=== PATIENT | male | born 1965 | race African-American/Black ===

== ENCOUNTER 2020-06-15 11:28 | Outpatient (REF) | payer OTHER, SELFPAY ==
[2020-06-15 14:00] LABS: Creatinine Urine 233.69 mg/dL; Microalbum/Creatinine Ratio Ur 5.9 ug/mg cr
[2020-06-15 14:05] LABS: Alanine Aminotransferase 36 U/L (0-40); Albumin Level 4.3 g/dL (3.5-5.0); Alkaline Phosphatase 102 U/L (39-117); Anion Gap 12 (12-20); Aspartate Amino Transferase 39 U/L (5-37); Bilirubin Total 0.4 mg/dL (0.0-1.0); Blood Urea Nitrogen 17 mg/dL (9-16); Calcium 9.1 mg/dL (8.4-10.2); Carbon Dioxide 34 mmol/L (22-29); Chloride 97 mmol/L (96-108); Estimated Glomerular Filt Rate > 60; Glucose Fasting 108 mg/dL (60-99); Sodium 140 mmol/L (135-145); Total Protein 7.7 g/dL (6.5-8.0)
[2020-06-15 14:27] LABS: Prostate Specific Antigen Scr 0.45 ng/mL (<0.05-4.0)
== END 2020-06-15 11:29 | disposition home or self-care (01) ==
LOC: HO.WFDLDS 11:28
PROVIDERS: Visit Provider Family Medicine
DX: Z00.00 Encounter for general adult medical examination without abnormal findings (principal); I10 Essential (primary) hypertension; Z12.5 Encounter for screening for malignant neoplasm of prostate
CPT/HCPCS: 36415; 80053; 82043; 84153

== ENCOUNTER 2021-05-23 10:03 | Outpatient (REF) | payer OTHER, SELFPAY ==
[2021-05-23 12:17] LABS: Alanine Aminotransferase 23 U/L (0-40); Alkaline Phosphatase 104 U/L (39-117); Anion Gap 12 (12-20); Aspartate Amino Transferase 28 U/L (5-37); Bilirubin Total 0.3 mg/dL (0.0-1.0); Blood Urea Nitrogen 19 mg/dL (9-16); Calcium 9.6 mg/dL (8.4-10.2); Carbon Dioxide 32 mmol/L (22-29); Chloride 100 mmol/L (96-108); Cholesterol 156 mg/dL; Estimated Glomerular Filt Rate > 60; Glucose Fasting 100 mg/dL (60-99); HDL Cholesterol 29 mg/dL; LDL Cholesterol Calculated 107 mg/dl; Potassium 3.1 mmol/L (3.3-5.1); Sodium 141 mmol/L (135-145); Total Protein 7.4 g/dL (6.5-8.0); Triglycerides 102 mg/dL; Uric Acid 10.7 mg/dL (3.4-7.0)
[2021-05-23 12:30] LABS: Creatinine Urine 150.81 mg/dL; Microalbum/Creatinine Ratio Ur 5.3 ug/mg cr
[2021-05-23 12:39] LABS: TSH reflex Free T4 2.34 uIU/mL (0.32-4.0)
== END 2021-05-23 10:04 | disposition home or self-care (01) ==
LOC: HO.WFDLDS 10:03
PROVIDERS: Visit Provider Family Medicine
DX: Z00.00 Encounter for general adult medical examination without abnormal findings (principal); M79.89 Other specified soft tissue disorders; I10 Essential (primary) hypertension
CPT/HCPCS: 36415; 80053; 80061; 82043; 84443; 84550

== ENCOUNTER 2021-06-14 18:07 | Outpatient (REF) | payer OTHER, SELFPAY ==
[2021-06-14 18:54] LABS: Influenza A PCR NEGATIVE (Negative); Influenza B PCR NEGATIVE (Negative); Resp Syncy Virus RNA Qual PCR NEGATIVE (Negative); SARS COV2 PCR INHOUSE NEGATIVE (Negative)
== END 2021-06-14 18:08 | disposition home or self-care (01) ==
LOC: HO.LNP 18:07
PROVIDERS: Visit Provider Family Medicine
DX: Z20.822 Contact with and (suspected) exposure to COVID-19 (principal); H92.02 Otalgia, left ear
CPT/HCPCS: 0241U

== ENCOUNTER 2022-03-14 09:27 | Outpatient (REF) | payer OTHER, SELFPAY ==
[2022-03-14 12:25] LABS: Influenza A PCR NEGATIVE (Negative); Influenza B PCR NEGATIVE (Negative); Resp Syncy Virus RNA Qual PCR NEGATIVE (Negative); SARS COV2 PCR INHOUSE NEGATIVE (Negative)
== END 2022-03-14 09:28 | disposition home or self-care (01) ==
LOC: HO.LNP 09:27
PROVIDERS: Visit Provider Nurse Practitioner Family
DX: Z20.822 Contact with and (suspected) exposure to COVID-19 (principal); J06.9 Acute upper respiratory infection, unspecified
CPT/HCPCS: 0241U

== ENCOUNTER 2022-05-19 08:36 | Outpatient (REF) | payer OTHER, SELFPAY ==
[2022-05-19 11:41] LABS: Appearance Urine Clear; Color Urine Yellow; Glucose Urine UA Negative (Negative); Leukocyte Esterase Urine Negative (Negative); Nitrite Urine Negative (Negative); PH 5.5 (5.0-9.0); Specific Gravity - Urine 1.025 (1.005-1.025); UMIC TRIGGER UA YES; Urine Blood Moderate (2+) (Negative); Urine Ketones 15 mg/dL (Negative); Urine Protein 30 (1+) mg/dL (Neg-Trace)
[2022-05-19 12:00] LABS: Bacteria Urine None Seen (None Seen); Granular Casts Urine Present; WBC Urine 0-5 /HPF (0-5)
[2022-05-19 12:25] LABS: Creatinine Urine 445.01 mg/dL; Microalbum/Creatinine Ratio Ur 19.3 ug/mg cr
[2022-05-19 13:42] LABS: Alanine Aminotransferase 27 U/L (0-40); Alkaline Phosphatase 109 U/L (39-117); Anion Gap 14 (12-20); Aspartate Amino Transferase 40 U/L (5-37); Bilirubin Total 0.7 mg/dL (0.0-1.0); Blood Urea Nitrogen 18 mg/dL (9-16); Calcium 9.4 mg/dL (8.4-10.2); Carbon Dioxide 30 mmol/L (22-29); Chloride 100 mmol/L (96-108); Cholesterol 121 mg/dL; Estimated Glomerular Filt Rate 53; Glucose Fasting 101 mg/dL (60-99); HDL Cholesterol 29 mg/dL; LDL Cholesterol Calculated 80 mg/dl; Potassium 2.8 mmol/L (3.3-5.1); Prostate Specific Antigen Scr 0.39 ng/mL (<0.05-4.0); Sodium 141 mmol/L (135-145); TSH reflex Free T4 1.99 uIU/mL (0.32-4.0); Total Protein 7.6 g/dL (6.5-8.0); Triglycerides 62 mg/dL
== END 2022-05-19 08:37 | disposition home or self-care (01) ==
LOC: HO.WFDLDS 08:36
PROVIDERS: Visit Provider Family Medicine
DX: Z00.00 Encounter for general adult medical examination without abnormal findings (principal); I10 Essential (primary) hypertension; Z12.5 Encounter for screening for malignant neoplasm of prostate
CPT/HCPCS: 36415; 80053; 80061; 81001; 82043; 84153; 84443

== ENCOUNTER 2022-05-26 11:09 | Outpatient (REF) | payer OTHER, SELFPAY ==
--- NOTE | ~2022-05-26 | XR_ITS ---
EXAMINATION: XR CHEST CLINICAL INFORMATION: Upper respiratory symptoms. Cold symptoms. Lingering lung sounds. COMPARISON: Chest radiographs 04/11/2017 TECHNIQUE: 2 views of the chest were obtained. FINDINGS: There is no lobar or segmental airspace consolidation or groundglass opacity or effusion. Subtle symmetric bilateral nipple shadows are seen on the frontal view. The heart is normal in size. The hilar and mediastinal contours are normal. No acute bony abnormality. XR/XR chest 2V IMPRESSION: Unremarkable examination.
== END 2022-05-26 11:10 | disposition home or self-care (01) ==
LOC: HO.XRAY 11:09
PROVIDERS: PCP Family Medicine; Visit Provider Family Medicine
DX: R09.89 Other specified symptoms and signs involving the circulatory and respiratory systems (principal)
CPT/HCPCS: 71046

== ENCOUNTER 2022-08-26 07:00 | Outpatient (REF) | payer OTHER, SELFPAY ==
[2022-08-26 08:04] LABS: Urine Cytology See Pathology rpt
[2022-08-26 08:26] LABS: Appearance Urine Clear; Color Urine Yellow; Glucose Urine UA Negative (Negative); Leukocyte Esterase Urine Negative (Negative); Nitrite Urine Negative (Negative); PH 7.5 (5.0-9.0); Specific Gravity - Urine 1.015 (1.005-1.025); Urine Blood Negative (Negative); Urine Ketones Negative (Negative); Urine Protein Negative (Neg-Trace)
[2022-08-26 09:44] LABS: Alanine Aminotransferase 30 U/L (0-40); Albumin Level 3.8 g/dL (3.5-5.0); Alkaline Phosphatase 94 U/L (39-117); Anion Gap 14 (12-20); Aspartate Amino Transferase 28 U/L (5-37); Bilirubin Total 0.7 mg/dL (0.0-1.0); Blood Urea Nitrogen 12 mg/dL (9-16); Calcium 9.3 mg/dL (8.4-10.2); Carbon Dioxide 30 mmol/L (22-29); Chloride 101 mmol/L (96-108); Cholesterol 155 mg/dL; Estimated Glomerular Filt Rate > 60; Glucose Fasting 110 mg/dL (60-99); HDL Cholesterol 30 mg/dL; LDL Cholesterol Calculated 104 mg/dl; Potassium 3.2 mmol/L (3.3-5.1); Sodium 142 mmol/L (135-145); Total Protein 7.2 g/dL (6.5-8.0); Triglycerides 106 mg/dL
== END 2022-08-26 07:01 | disposition home or self-care (01) ==
LOC: HO.LAB 07:00
PROVIDERS: PCP Family Medicine; Visit Provider Family Medicine
DX: Z00.00 Encounter for general adult medical examination without abnormal findings (principal); R74.01 Elevation of levels of liver transaminase levels; R31.9 Hematuria, unspecified; E78.6 Lipoprotein deficiency
CPT/HCPCS: 36415; 80053; 80061; 81003; 88112

== ENCOUNTER 2022-10-26 09:53 | Outpatient (REF) | payer OTHER, SELFPAY | END 2022-10-26 09:54 | disposition home or self-care (01) | LOC: HO.LAB 09:53 | PROVIDERS: PCP Family Medicine; Visit Provider Urology | DX: R31.29 Other microscopic hematuria (principal); R82.89 Other abnormal findings on cytological and histological examination of urine | CPT/HCPCS: 51798 ==

== ENCOUNTER 2022-12-11 09:01 | Outpatient (REF) | payer OTHER, SELFPAY | END 2022-12-11 09:02 | disposition home or self-care (01) | LOC: HO.LAB 09:01 | PROVIDERS: Visit Provider Urology | DX: R82.89 Other abnormal findings on cytological and histological examination of urine (principal); R31.9 Hematuria, unspecified; R31.29 Other microscopic hematuria | CPT/HCPCS: 52000; 88112 ==

== ENCOUNTER 2023-01-29 10:10 | Outpatient (AMB) | payer OTHER, SELFPAY ==
--- NOTE | 2023-01-29 10:16 | MHC.PC.OV ---
Vital Signs 01/29/23 10:18 Height 5 ft 10 in Weight 218 lb 2 oz BMI 31.3 BP 118/78 Blood Pressure Location Lt brachial Position Sitting Pulse 59 Pulse Source Pulse Oximeter Temp 98.5 F Temp Source Oral Pulse Oximetry (%) 99 Oxygen Delivery Method Room Air Intake Visit Reasons: [facility] ED Follow up Intake Note: Patient is here to follow up on right elbow pain was seen at [facility] in [place]. Allergies Sulfa (Sulfonamide Antibiotics) Allergy (Unknown, Verified 01/29/23 10:22) Itching Tobacco use date assessed: 01/29/23 Dental Screening Dental Screen Date: 01/29/23 Did you have a dental visit in the last 12 months?: Yes Did you have a dental problem in the last 6 months where you did not have access to dental care?: No Was dental information given to patient?: Patient has dentist HPI [facility] ED Follow up HPI Details 57 y/o male presents to f/u ED visit for R elbow bursitis. Orthopedics evaluated pt and did not believe it to be septic joint - they recommended dose of IV vancomycin. They had also seen a new GALILEA of 2.1 and had given him IV fluids. He reports he could still feel the warmth on his elbow. He denies symptoms worsening. 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 Jewel De Oliveira, Madeline Magana, Kiel Pantoja and colleagues, with an educational den from [employer]. Review of Systems Const Denies chills, Denies fatigue, Denies fever(s), Denies headache(s) and Denies weakness ENT Denies dizziness and Denies headache(s) Card Denies dyspnea Resp Denies cough, Denies dyspnea, Denies wheezing and Denies other (shortness of breath) Musc Details: R elbow pain/warmth Denies numbness and Denies tingling Neuro Denies dizziness, Denies headache(s), Denies numbness, Denies tingling and Denies weakness Psych Denies anxiety and Denies depression Endo Denies fatigue Aller/Immun Denies wheezing Physical exam (Primary Care) Vital Signs: Last Vital Signs Temp 98.5 F 01/29/23 10:18 Pulse 59 01/29/23 10:18 BP 118/78 01/29/23 10:18 Pulse Ox 99 01/29/23 10:18 Oxygen Delivery Method Room Air 01/29/23 10:18 BMI result Body Mass Index 31.3 Tobacco/Smoking Status: Tobacco use Status Tobacco use date assessed 01/29/23 01/29/23 10:27 Patient Tobacco Use Status Never used Tobacco 01/29/23 10:16 e-Cigarette/Vaping Use Never Used 01/29/23 10:16 Thrive Assessment: Date of Thrive Assessment Date Thrive assessed 12/13/21 01/29/23 10:16 Const General: well developed; No acute distress Nutritional Appearance: well nourished Orientation/consciousness: patient oriented x3 HENMT Head: Yes normocephalic and Yes atraumatic Eyes General: appearance normal, both eyes and all related structures Pupils: Equal, round and reactive pupils present EOM: EOMs intact bilaterally Resp Effort & Inspection: normal respiratory effort Neuro General: patient oriented x3 and gait normal Cranial nerves: Yes Equal, round and reactive pupils present Extrem Other: Swelling of L great toe and distal foot Psych Affect: normal affect Assessment and Plan Assessment & Plan (1) Bursitis of right elbow: Code(s): M70.31 - Other bursitis of elbow, right elbow Plan: Bursitis of right elbow and severe pain and swelling in with increased warmth. He was given vancomycin at the emergency department at [facility] and was sent out with doxycycline. He is almost finished with his course of doxycycline. Still has warmth of the right elbow and swelling there. Sed rate was high as was CRP at [facility]. White count was not elevated. Patient has a history of gout Still having a right elbow pain swelling and increased warmth. Will extend his doxycycline in though this may be a gout flare-up at this point or and non infected bursitis. Will refer to ortho at patient's request. Check labs including white count and uric acid level (2) Acute kidney injury: Code(s): N17.9 - Acute kidney failure, unspecified Plan: In patient had acute kidney injury with elevated creatinine level which has started coming down. Chlorthalidone, olmesartan and NSAIDs were discontinued Will recheck his renal function today Watching blood pressure carefully (3) Gout: Code(s): M10.9 - Gout, unspecified Plan: Patient has a history of gout and has not been taking allopurinol which was restarted last week. He has swelling of the left great toe and forefoot consistent with gout Checking uric acid level Holding off on prednisone as there is still some question of infection of the right elbow and patient has significant issues with hypertension which would be exacerbated by prednisone. Checking labs as mentioned above. If his kidney function is significantly improved, may be able to resume some blood pressure medication in this may allow us to use some prednisone as well. Would hold off on NSAIDs. Recommended Tylenol and ice while awaiting results of his labs. Continue allopurinol and we may need to adjust this at his next visit Orders: Orders Comprehensive Met. Panel Today N17.9 - Acute kidney failure, unspecified CRP High Sensitivity Today M70.31 - Other bursitis of elbow, right elbow Uric Acid Today M10.9 - Gout, unspecified Complete Blood Count Auto Diff Today M70.31 - Other bursitis of elbow, right elbow, Z00.00 - Encounter for general adult medical examination without abnormal findings Erythrocyte Sedimentation Rate Today M70.31 - Other bursitis of elbow, right elbow Referrals Orthopedics Referral M70.31 - Other bursitis of elbow, right elbow Medications: New doxycycline hyclate 100 mg PO BID 5 days 10 tabs 0RF amlodipine 10 mg PO DAILY 30 days 30 tabs 0RF Discontinued amlodipine-olmesartan 10-40 mg Discontinued Reason: Doctor's Order 1 tab PO DAILY 90 days 90 tabs 3RF chlorthalidone Discontinued Reason: Doctor's Order 50 mg PO DAILY 90 tabs 3RF Z12.5 - Encounter for screening for malignant neoplasm of prostate Coding Level of Care Code Est Pt Level 4 (65318) Diagnoses Bursitis of right elbow M70.31 Acute kidney injury N17.9 Gout M10.9
[2023-01-29 10:18] VITALS: BP 118/78; PULSE 59; TEMP 36.9; O2SAT 99; BMI 31.3
== END 2023-01-29 10:52 | disposition home or self-care (01) ==
PROVIDERS: PCP Family Medicine; Visit Provider Family Medicine
DX: M70.31 Other bursitis of elbow, right elbow (principal); N17.9 Acute kidney failure, unspecified; M10.9 Gout, unspecified
CPT/HCPCS: 99214

== ENCOUNTER 2023-01-29 10:53 | Outpatient (REF) | payer OTHER, SELFPAY ==
[2023-01-29 14:13] LABS: MANUAL DIFF FLAG NO
[2023-01-29 14:20] LABS: Basophils Absolute Auto 0.1 X10*3/uL (0.0-0.2); Basophils Percent Auto 0.6 % (0-2); Eosinophils Absolute Auto 0.1 X10*3/uL (0.0-0.4); Eosinophils Percent Auto 1.2 % (0-4); Hematocrit 34.8 % (42.0-52.0); Imm Gran Abs Auto 0.03 X10*3/uL (0.00-0.03); Imm Gran Pct Auto 0.3 % (0.0-0.4); Lymphocytes Absolute Auto 3.3 X10*3/uL (1.2-4.9); Lymphocytes Percent Auto 37.3 % (20-40); Mean Corpuscular HGB Conc 34.5 g/dl (31.0-36.0); Mean Corpuscular Hemoglobin 29.9 pg (27.0-33.0); Mean Corpuscular Volume 86.8 fL (80.0-98.0); Mean Platelet Volume 10.1 fL (9.4-12.4); Monocytes Absolute Auto 0.9 X10*3/uL (0.1-1.2); Monocytes Percent Auto 10.3 % (2-11); Neutrophils Absolute Auto 4.5 x10*3/uL (2.0-8.3); Neutrophils Percent Auto 50.3 % (45-73); Platelet Count 305 X10*3/uL (160-400); Red Blood Count 4.01 X10*6/uL (4.60-5.80); Red Cell Distribution Width 13.1 % (11.0-16.0); White Blood Count 8.9 X10*3/uL (4.8-10.8)
[2023-01-29 14:39] LABS: Estimated Average Glucose 123 mg/dL; Hemoglobin A1c % 5.9 % (<6.0)
[2023-01-29 14:41] LABS: Alanine Aminotransferase 22 U/L (0-40); Albumin Level 3.7 g/dL (3.5-5.0); Alkaline Phosphatase 108 U/L (39-117); Anion Gap 11 (12-20); Aspartate Amino Transferase 27 U/L (5-37); Bilirubin Total 0.5 mg/dL (0.0-1.0); Blood Urea Nitrogen 14 mg/dL (9-16); Calcium 9.9 mg/dL (8.4-10.2); Carbon Dioxide 30 mmol/L (22-29); Chloride 104 mmol/L (96-108); Estimated Glomerular Filt Rate > 60; Glucose Random 94 mg/dL (60-115); Potassium 3.3 mmol/L (3.3-5.1); Sodium 142 mmol/L (135-145); Total Protein 7.7 g/dL (6.5-8.0)
[2023-01-29 15:04] LABS: Erythrocyte Sedimentation Rate 58 MM/HR (0-15)
[2023-01-31 16:32] LABS: CRP High Sensitivity >10.0 mg/L
== END 2023-01-29 10:54 | disposition home or self-care (01) ==
LOC: HO.WFDLDS 10:53
PROVIDERS: Visit Provider Family Medicine
DX: Z00.00 Encounter for general adult medical examination without abnormal findings (principal); N17.9 Acute kidney failure, unspecified; M70.31 Other bursitis of elbow, right elbow; R73.01 Impaired fasting glucose; M10.9 Gout, unspecified
CPT/HCPCS: 36415; 80053; 83036; 84550; 85025; 85652; 86141

== ENCOUNTER 2023-02-06 10:19 | Outpatient (AMB) | payer OTHER, SELFPAY ==
[2023-02-06 10:28] VITALS: BP 122/74; PULSE 63; O2SAT 98; BMI 31.0
--- NOTE | 2023-02-06 10:28 | A.OFFPC_ITS ---
Vital Signs 02/06/23 10:28 Height 5 ft 10 in Weight 216 lb 6 oz BMI 31.0 BP 122/74 Blood Pressure Location Lt brachial Position Sitting Pulse 63 Pulse Source Pulse Oximeter Pulse Oximetry (%) 98 Oxygen Delivery Method Room Air Intake Visit Reasons: f/u bursitis and gout Intake Note: Patient is here to follow up on bursitis and gout, patient has a hard time walking. He feels like he is breathing faster, too. Allergies Sulfa (Sulfonamide Antibiotics) Allergy (Unknown, Verified 02/06/23 10:30) Itching Medication List - Last Reconciled 02/06/23 by Tod Monte MD allopurinol 100 mg PO DAILY amlodipine 10 mg PO DAILY 30 days cetirizine (Zyrtec) 10 mg PO DAILY 30 days doxycycline hyclate 100 mg PO BID 5 days fluticasone propionate 50 mcg/actuation (Flonase Allergy Relief) 1 spray intranasal Q12H 30 days metoprolol succinate ER 25 mg PO DAILY 90 days psyllium husk (with sugar) 3.4 gram (Metamucil (with sugar)) 1 tbsp PO DAILY 30 days Tobacco use date assessed: 02/06/23 Dental Screening Dental Screen Date: 02/06/23 Did you have a dental visit in the last 12 months?: Yes Did you have a dental problem in the last 6 months where you did not have access to dental care?: No Was dental information given to patient?: Patient has dentist HPI f/u bursitis and gout HPI Details 57 y/o male presents to f/u R elbow and L great toe inflammation s/p treatment at ED for R elbow bursitis for which he received vancomycin. Hx of gout and checking labs. Also recent acute kidney injury. Elevated uric acid level at 8.0. Normocytic anemia. 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 1. Little interest or pleasure in doing things: not at all 2. Feeling down, depressed, or hopeless: not at all 3. Trouble falling or staying asleep, or sleeping too much: not at all 4. Feeling tired or having little energy: not at all 5. Poor appetite or overeating: not at all 6. Feeling bad about yourself - or that you are a failure or have let yourself or your family down: not at all 7. Trouble concentrating on things, such as reading the newspaper or watching television: not at all 8. Moving or speaking so slowly that other people could have noticed. Or the opposite - being so fidgety or restless that you have been moving around a lot more than usual: not at all 9. Thoughts that you would be better off or of hurting yourself in some way: not at all Total score: 0 Source: Developed by Drs. Jewel De Oliveira, Madeline Magana, Kiel Pantoja and colleagues, with an educational den from [employer]. Thrive Questionnaire Date Thrive assessed: 12/13/21 AUDIT C Alcohol Use Questionnaire (AUDIT-C) 1. How often do you have a drink containing alcohol?: Never 3. How often do you have six or more drinks on one occasion?: Never Total Score: 0 ASHKAN-7 AMB Questionnaire ASHKAN-7 Date ASHKAN - 7 assessed: 02/06/23 Feeling nervous, anxious, or on edge: 0 = Not at all Not being able to stop or control worryin = Not at all Worrying too much about different things: 0 = Not at all Trouble relaxin = Not at all Being so restless that it is hard to sit still: 0 = Not at all Becoming easily annoyed or irritable: 0 = Not at all Feeling afraid as if something awful might happen: 0 = Not at all Total ASHKAN-7 score (0-4 normal; 5-9 mild; 10-14 moderate; 15-21 severe): 0 Source: Developed by Drs. Jewel De Oliveira, Madeline Magana, Kiel Pantoja and colleagues, with an educational den from [employer]. Review of Systems Const Denies chills, Denies fatigue, Denies fever(s), Denies headache(s) and Denies weakness ENT Denies dizziness and Denies headache(s) Card Denies chest pain, Denies lightheadedness, Denies dyspnea and Denies other (Palpitations) Resp Denies cough, Denies dyspnea, Denies wheezing and Denies other ( shortness of breath) Musc Denies numbness and Denies tingling Neuro Denies dizziness, Denies headache(s), Denies numbness, Denies tingling, Denies paresthesias and Denies weakness Psych Denies anxiety and Denies depression Endo Denies fatigue Aller/Immun Denies wheezing Physical exam (Primary Care) Vital Signs: Last Vital Signs Pulse 63 02/06/23 10:28 BP 122/74 02/06/23 10:28 Pulse Ox 98 02/06/23 10:28 Oxygen Delivery Method Room Air 02/06/23 10:28 BMI result Body Mass Index 31.0 Tobacco/Smoking Status: Tobacco use Status Tobacco use date assessed 02/06/23 02/06/23 10:32 Patient Tobacco Use Status Never used Tobacco 02/06/23 10:32 e-Cigarette/Vaping Use Never Used 02/06/23 10:32 PHQ-9: PHQ-9 Score PHQ-9: Total score 0 02/06/23 10:51 Thrive Assessment: Date of Thrive Assessment Date Thrive assessed 12/13/21 02/06/23 10:32 Const General: no acute distress and well developed Nutritional Appearance: well nourished Orientation/consciousness: patient oriented x3 HENMT Head: Yes normocephalic and Yes atraumatic Eyes General: appearance normal, both eyes and all related structures Pupils: Equal, round and reactive pupils present EOM: EOMs intact bilaterally Resp Effort & Inspection: normal respiratory effort Auscultation: clear to auscultation bilaterally Cardio Rate: regular rate Rhythm: regular rhythm Heart sounds: S1 normal heart sound present, S2 normal heart sound present, no gallops, no murmurs and no rubs Neuro General: patient oriented x3 and gait normal Cranial nerves: Yes Equal, round and reactive pupils present Psych Affect: normal affect Assessment and Plan Assessment & Plan (1) Acute kidney injury: Code(s): N17.9 - Acute kidney failure, unspecified Plan: This has improved off chlorthalidone and losartan No longer needs these medications as his blood pressure is well controlled with current medication regimen Acute kidney injury has resolved. (2) Gout: Code(s): M10.9 - Gout, unspecified Plan: Uric acid level is 8 and foot swelling and pain are consistent with gout flare Start prednisone Increased (3) Normocytic anemia: Code(s): D64.9 - Anemia, unspecified Plan: Check labs (4) Bursitis of right elbow: Code(s): M70.31 - Other bursitis of elbow, right elbow Plan: Likely uninfected - WBC count in normal range, and prednisone will help to reduce this further (5) Pain and swelling of toe of left foot: Code(s): M79.675 - Pain in left toe(s); M79.89 - Other specified soft tissue disorders Plan: As above and checking x-ray Orders: Orders XR foot LT min 3V Today M10.9 - Gout, unspecified, M79.675 - Pain in left toe(s), M79.89 - Other specified soft tissue disorders Uric Acid Today M10.9 - Gout, unspecified Complete Blood Count Auto Diff Today M10.9 - Gout, unspecified, Z00.00 - Enco unter for general adult medical examination without abnormal findings Comprehensive Met. Panel Today N17.9 - Acute kidney failure, unspecified Medications: New prednisone 40 mg (2 x 20 mg) PO DAILY 5 days 10 tabs 0RF cephalexin 500 mg PO Q12H 10 days 20 caps 0RF meloxicam 15 mg PO DAILY 30 days 30 tabs 2RF Changed From allopurinol 100 mg PO DAILY 90 tabs 1RF To allopurinol 200 mg (2 x 100 mg) PO DAILY 90 days 180 tabs 2RF Coding Level of Care Code Est Pt Level 4 (72281) Diagnoses Acute kidney injury N17.9 Gout M10.9 Normocytic anemia D64.9 Bursitis of right elbow M70.31 Pain and swelling of toe of left foot M79.675; M79.89
== END 2023-02-06 11:14 | disposition home or self-care (01) ==
PROVIDERS: PCP Family Medicine; Visit Provider Family Medicine
DX: N17.9 Acute kidney failure, unspecified (principal); M10.9 Gout, unspecified; D64.9 Anemia, unspecified; M70.31 Other bursitis of elbow, right elbow; M79.675 Pain in left toe(s); M79.89 Other specified soft tissue disorders
CPT/HCPCS: 99214

== ENCOUNTER 2023-02-06 14:57 | Outpatient (REF) | payer OTHER, SELFPAY ==
--- NOTE | ~2023-02-06 | XR_ITS ---
EXAMINATION: XR FOOT, LEFT CLINICAL INFORMATION: Gout. COMPARISON: None available. TECHNIQUE: AP, lateral, and oblique views of the left foot. FINDINGS: No acute fractures or subluxation. Equivocal very minimal marginal erosions along the lateral surface of the distal first metatarsal adjacent to the metatarsophalangeal joint. No abnormal soft tissue calcifications. Bony productive changes along the dorsal surface of the foot on the lateral view. Small dorsal calcaneal spur. Diffuse soft tissue thickening. XR/XR foot LT min 3V IMPRESSION: 1. No acute fractures or subluxation. 2. Equivocal very minimal marginal erosions along the lateral surface of the distal first metatarsal adjacent to the metatarsophalangeal joint, which could be seen in the setting of gout. 3. Diffuse soft tissue thickening.
[2023-02-06 15:10] LABS: MANUAL DIFF FLAG NO
[2023-02-06 15:36] LABS: Basophils Absolute Auto 0.1 X10*3/uL (0.0-0.2); Basophils Percent Auto 0.6 % (0-2); Eosinophils Absolute Auto 0.3 X10*3/uL (0.0-0.4); Hematocrit 35.3 % (42.0-52.0); Hemoglobin 11.8 g/dl (14.0-18.0); Imm Gran Abs Auto 0.03 X10*3/uL (0.00-0.03); Imm Gran Pct Auto 0.3 % (0.0-0.4); Lymphocytes Absolute Auto 2.9 X10*3/uL (1.2-4.9); Lymphocytes Percent Auto 33.6 % (20-40); Mean Corpuscular HGB Conc 33.4 g/dl (31.0-36.0); Mean Corpuscular Hemoglobin 29.1 pg (27.0-33.0); Mean Corpuscular Volume 87.2 fL (80.0-98.0); Mean Platelet Volume 9.2 fL (9.4-12.4); Monocytes Absolute Auto 0.9 X10*3/uL (0.1-1.2); Monocytes Percent Auto 9.9 % (2-11); Neutrophils Absolute Auto 4.6 x10*3/uL (2.0-8.3); Neutrophils Percent Auto 52.6 % (45-73); Platelet Count 426 X10*3/uL (160-400); Red Blood Count 4.05 X10*6/uL (4.60-5.80); Red Cell Distribution Width 13.1 % (11.0-16.0); White Blood Count 8.7 X10*3/uL (4.8-10.8)
[2023-02-06 16:30] LABS: Alanine Aminotransferase 31 U/L (0-40); Albumin Level 3.6 g/dL (3.5-5.0); Alkaline Phosphatase 102 U/L (39-117); Anion Gap 15 (12-20); Aspartate Amino Transferase 33 U/L (5-37); Bilirubin Total 0.3 mg/dL (0.0-1.0); Blood Urea Nitrogen 15 mg/dL (9-16); Calcium 9.5 mg/dL (8.4-10.2); Carbon Dioxide 27 mmol/L (22-29); Chloride 105 mmol/L (96-108); Estimated Glomerular Filt Rate > 60; Glucose Random 77 mg/dL (60-115); Potassium 3.8 mmol/L (3.3-5.1); Sodium 143 mmol/L (135-145); Total Protein 7.6 g/dL (6.5-8.0); Uric Acid 6.1 mg/dL (3.4-7.0)
== END 2023-02-06 14:58 | disposition home or self-care (01) ==
LOC: HO.LAB 14:57
PROVIDERS: PCP Family Medicine; Visit Provider Family Medicine
DX: M10.9 Gout, unspecified (principal); N17.9 Acute kidney failure, unspecified; M79.675 Pain in left toe(s); M79.89 Other specified soft tissue disorders; Z00.00 Encounter for general adult medical examination without abnormal findings
CPT/HCPCS: 36415; 73630; 80053; 84550; 85025

== ENCOUNTER 2023-02-13 08:31 | Outpatient (REF) | payer OTHER, SELFPAY ==
--- NOTE | ~2023-02-13 | CT_ITS ---
EXAMINATION: CT ABDOMEN AND PELVIS WITHOUT AND WITH CONTRAST CLINICAL INFORMATION: Other abnormal findings on cytologic and Histological exam COMPARISON: None available. TECHNIQUE: Noncontrast CT of the abdomen and pelvis is performed followed by split bolus contrast-enhanced images using 85 mL Omnipaque 350 contrast.? Postcontrast imaging is performed during the combined nephrogram and excretion phase. Sagittal and coronal reformatted images were obtained on the technologist's workstation for both the precontrast and postcontrast phases. This CT examination was performed using dose optimization techniques as appropriate, variously including the following: *Automated exposure control *Adjustment of mA and/or kV according to patient size (this includes techniques or standardized protocols for targeted exams where dose is matched to indication/reason for exam; i.e. extremities or head) *Use of iterative reconstruction technique DLP: 837 mGy-cm FINDINGS: LUNG BASES: Small bilateral pleural effusions. Right lower lobe peripheral or subpleural nodular densities, question representing subpleural lymph nodes versus subsegmental atelectasis. LIVER, GALLBLADDER, AND BILIARY TREE: The liver is normal in size, shape, and attenuation. No focal hepatic lesion or biliary ductal dilatation is present. The gallbladder is unremarkable with no evidence of radiopaque gallstones, gallbladder wall thickening, or obvious pericholecystic inflammatory changes. PANCREAS: Unremarkable. SPLEEN: Unremarkable. ADRENAL GLANDS: Unremarkable. KIDNEYS AND URETERS: The kidneys are normal in size, shape, and attenuation. No hydronephrosis, hydroureter, or calculi seen. No perinephric stranding. 3 cm left renal cyst. No imaging follow-up recommended. BLADDER: Not optimally distended and not well evaluated. GASTROINTESTINAL TRACT: Mild diverticulosis of the colon. No evidence of diverticulitis. The small and large bowel are otherwise unremarkable. The appendix is unremarkable. ABDOMINAL WALL: No significant hernia is appreciated. LYMPH NODES: Normal. VASCULAR: Unremarkable. PELVIC VISCERA: The prostate gland does not appear enlarged. OSSEUS STRUCTURES: Degenerative changes of the spine. CT/CT urogram IMPRESSION: Unremarkable kidneys. Bladder not optimally distended and not well evaluated. Mild diverticulosis. Small bilateral pleural effusions. Question peripheral or subpleural posterior right lower lobe lower lobe lymph nodes versus subsegmental atelectasis.
[2023-02-13] MEDS: iohexoL 350 MG/ML 100 ML INFUS..BTL IV (09:25)
== END 2023-02-13 08:32 | disposition home or self-care (01) ==
LOC: HO.CT 08:31
PROVIDERS: PCP Family Medicine; Visit Provider Urology
DX: R31.9 Hematuria, unspecified (principal); R82.89 Other abnormal findings on cytological and histological examination of urine
CPT/HCPCS: 74178; Q9967

== ENCOUNTER 2023-02-19 09:03 | Outpatient (AMB) | payer OTHER, SELFPAY ==
--- NOTE | 2023-02-19 09:05 | A.OFFVIS_ITS ---
Intake Intake Visit Reasons: 10w/repeat urine cytology, CT Intake Note: Patient presents today for a follow-up on 10w/repeat urine cytology, CT completed on 02/13/2023. 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 Accompanied by: Self / Same As Patient Allergies Sulfa (Sulfonamide Antibiotics) Allergy (Unknown, Verified 02/06/23 10:30) Itching Medication List - Last Reconciled 02/19/23 by Brian Stephenson MD allopurinol 200 mg (2 x 100 mg) PO DAILY 90 days amlodipine 10 mg PO DAILY 90 days cephalexin 500 mg PO Q12H 10 days cetirizine (Zyrtec) 10 mg PO DAILY 30 days doxycycline hyclate 100 mg PO BID 5 days fluticasone propionate 50 mcg/actuation (Flonase Allergy Relief) 1 spray intranasal Q12H 30 days meloxicam 15 mg PO DAILY 30 days metoprolol succinate ER 25 mg PO DAILY 90 days prednisone 40 mg (2 x 20 mg) PO DAILY 5 days psyllium husk (with sugar) 3.4 gram (Metamucil (with sugar)) 1 tbsp PO DAILY 30 days HPI HPI Comments History of Present Illness Details Pepe is a 57-year-old male who presents today to the office for a follow-up. 02/19/2023? He is followed today for 10/week urine cytology. He was last seen by me on 12/11/2022 for a Cystoscopy procedure. Cystoscopy findings-- no suspiciousl bladder lesions visualized.? CT urogram, and repeat urine cytology was ordered at that time. The patient was advised to follow-up after 2 months at that time. He denies any trouble with urination. He has been taking amlodipine 10 mg for blood pressure. I reviewed the urogram CT results from 02/13/2023 revealed unremarkable kidneys. I reviewed the pathology report results from 12/14/2022 revealed negative for high-grade urothelial carcinoma. 02/19/2023: Evaluation today?UA?Leukocyt es: 15 Wilmer; blood: 10 Juan. Review of charts: Last visit: 12/11/22--? The patient denies history of smoking. He was previously evaluated on 10/26/22 for abnormal urine cytology.? The urine cytology test was done during screening visit with his PCP. Urine cytology results reviewed?collected 08/26/22--Rare atypical urothelial cells. The patient denies gross hematuria. He states he drinks adequate amount of water daily also drinks tea. Denies drinking sodas. He voids frequently due to fluid intake PSA results reviewed--05/19/2022-- 0.39. AUA symptom score-- 7. The urine was sent for bladder fish cancer test. The lab called to inform us that there were not enough cells in the urine. So, the test could not be completed.? Evaluation today-- blood: 10 Juan/uL, leukcoytes: negative. Cystoscopy findings-- no suspiciousl bladder lesions visualized.? 02/19/2023: Plan: Will monitor urinalysis. Follow up in 1 year, PSA and US of the kidneys prior. 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 Current occupational exposures/hazards: No Cognitive needs: No Hearing needs: No Vision needs: No Review of Systems Const All systems reviewed & are unremarkable except as noted in HPI and below Reports no additional complaints Eyes Reports no additional complaints ENT Reports no additional complaints Card Denies dyspnea Resp Denies cough and Denies dyspnea GI Reports no additional complaints Musc Reports no additional complaints Skin/Breast Denies rash and Denies unusual bruising Neuro Reports no additional complaints Psych Reports no additional complaints Endo Reports no additional complaints Paulie/Lymph Reports no additional complaints Aller/Immun Reports no additional complaints Results AMB Urinalysis, Automated UA Leukoctes 15 Wilmer/uL Last Edit by PATEL Dyson on 02/19/23 09:34 UA Nitrite Negative Last Edit by PATEL Dyson on 02/19/23 09:34 UA Urobilinogen 1 mg/dL Last Edit by PATEL Dyson on 02/19/23 09:34 UA Protein 100 mg/dL Last Edit by PATEL Dyson on 02/19/23 09:34 2+ Ramana Montes 02/19/23 09:34 UA pH 5.5 Last Edit by Ramana Montes Braulio on 02/19/23 09:34 UA Blood 100 Juan/uL Last Edit by PATEL Dyson on 02/19/23 09:34 10Ery/uL Ramana Montes 02/19/23 09:34 UA Specific Wayne 1.030 Last Edit by Ramana Montes [facility] on 02/19/23 09: 34 UA Ketone Positive Last Edit by PATEL Dyson on 02/19/23 09:34 15 mg/dL Ramana Montes 02/19/23 09:34 UA Bilirubin 100 mg/dL Last Edit by PATEL Dyson on 02/19/23 09:34 2+, 2 mg/dL Ramana Montes 02/19/23 09:34 UA Glucose 0 mg/dL Last Edit by Ramana Montes Braulio on 02/19/23 09:34 Results Reviewed Results Reviewed: Laboratory Last Values Urine pH (Auto) 5.5 02/19/23 09:31 Specific Wayne (Auto) 1.030 02/19/23 09:31 Urine Protein (Auto) 100 mg/dL 02/19/23 09:31 Glucose (UA)(Auto) 0 mg/dL 02/19/23 09:31 Urine Ketones (Auto) Positive 02/19/23 09:31 Urine Blood (Auto) 100 Juan/uL 02/19/23 09:31 Urine Nitrite (Auto) Negative 02/19/23 09:31 Urine Bilirubin (Auto) 100 mg/dL 02/19/23 09:31 Urine Urobilinogen (Auto) 1 mg/dL 02/19/23 09:31 Leukocyte Esterase (Auto) 15 Wilmer/uL 02/19/23 09:31 Date of Service: 02/13/23 EXAMINATION: CT ABDOMEN AND PELVIS WITHOUT AND WITH CONTRAST?? CLINICAL INFORMATION: Other abnormal findings on cytologic and Histological exam? COMPARISON: None available.? ?? FINDINGS: LUNG BASES: Small bilateral pleural effusions. Right lower lobe peripheral or subpleural nodular densities, question representing subpleural lymph nodes versus subsegmental atelectasis. LIVER, GALLBLADDER, AND BILIARY TREE: The liver is normal in size, shape, and attenuation. No focal hepatic lesion or biliary ductal dilatation is present. The gallbladder is unremarkable with no evidence of radiopaque gallstones, gallbladder wall thickening, or obvious pericholecystic inflammatory changes.?? PANCREAS: Unremarkable.?? SPLEEN: Unremarkable.?? ADRENAL GLANDS: Unremarkable.?? KIDNEYS AND URETERS: The kidneys are normal in size, shape, and attenuation. No hydronephrosis, hydroureter, or calculi seen. No perinephric stranding. 3 cm left renal cyst. No imaging follow-up recommended. BLADDER: Not optimally distended and not well evaluated. GASTROINTESTINAL TRACT: Mild diverticulosis of the colon. No evidence of diverticulitis. The small and large bowel are otherwise unremarkable. The appendix is unremarkable.?? ABDOMINAL WALL: No significant hernia is appreciated.?? LYMPH NODES: Normal. VASCULAR: Unremarkable. PELVIC VISCERA: The prostate gland does not appear enlarged.?? OSSEUS STRUCTURES: Degenerative changes of the spine. IMPRESSION: Unremarkable kidneys. Bladder not optimally distended and not well evaluated. Mild diverticulosis. Small bilateral pleural effusions. Question peripheral or subpleural posterior right lower lobe lower lobe lymph nodes versus subsegmental atelectasis. Diagnosis Urine: Negative for high-grade urothelial carcinoma. See comment. COMMENT: Cellular specimen consisting of single urothelial cells, some with degenerative changes, red blood cells and chronic inflammatory cells. Clinical History Microscopic hematuria, abnormal urine cytology Material Received Urine Gross Description 40 cc clear yellow fluid Assessment & Plan Assessment & Plan (1) Abnormal urine cytology: Code(s): R82.89 - Other abnormal findings on cytological and histological examination of urine (2) Hematuria: Code(s): R31.9 - Hematuria, unspecified (3) Renal cyst, left: Code(s): N28.1 - Cyst of kidney, acquired Plan Will monitor urinalysis. Follow up in 1 year, PSA and US of the kidneys prior. Orders: Orders AMB Urinalysis Automated Today Z13.9 - Encounter for screening, unspecified Patient Instructions: The patient had an opportunity to ask questions regarding treatment plan. All questions were answered. Imaging, Laboratory studies and physical exam results were discussed and reviewed in detail. No major barriers to understanding were identified. The patient expressed understanding and agreement with the above treatment plan.? ? ? The patient is aware they should contact our office by phone for worsening of their current condition or the appearance of new symptoms. Compliance is encouraged with any medications and followup testing that is ordered.? ? ? It is a privilege to be allowed the opportunity to participate in the urologic care of your patient. If you have any questions or concerns regarding treatment for the above conditions please do not hesitate to contact me. The office telephone contact is [phone].? ? ? This note is constructed in part using voice recognition software. While every effort has been made to ensure accuracy wire tinner errors may have been included.? ? ? Yours sincerely,? ? ? Brian Stephenson MD? ? Coding Level of Care Code Est Pt Level 3 (06904) Diagnoses Abnormal urine cytology R82.89 Hematuria R31.9 Renal cyst, left N28.1
== END 2023-02-19 09:56 | disposition home or self-care (01) ==
PROVIDERS: PCP Family Medicine; Visit Provider Urology
DX: R82.89 Other abnormal findings on cytological and histological examination of urine (principal); R31.9 Hematuria, unspecified; N28.1 Cyst of kidney, acquired; Z13.9 Encounter for screening, unspecified
CPT/HCPCS: 99213

== ENCOUNTER → 2023-02-19 09:03 | Outpatient (BNVA) | payer OTHER, SELFPAY | PROVIDERS: PCP Family Medicine; Visit Provider Urology | DX: R31.9 Hematuria, unspecified (principal); R82.89 Other abnormal findings on cytological and histological examination of urine; N28.1 Cyst of kidney, acquired | CPT/HCPCS: 81003 ==

== ENCOUNTER 2023-02-22 09:02 | Outpatient (AMB) | payer OTHER, SELFPAY ==
--- NOTE | 2023-02-22 09:09 | MHC.PC.OV ---
Vital Signs 02/22/23 09:10 02/22/23 10:53 Height 5 ft 10 in Weight 210 lb 2 oz BMI 30.1 BP 146/64 H 132/58 L Blood Pressure Location Rt brachial Rt brachial Position Sitting Sitting Respiration 13 Pulse 57 Pulse Source Pulse Oximeter Temp 97.6 F Temp Source Temporal Artery Scan Pulse Oximetry (%) 100 Oxygen Delivery Method Room Air Intake Visit Reasons: f/u gout Intake Note: Patient reports he has no concerns to report today. He would like his blood pressure retaken. 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 Labs were ordered. Had started him on prednisone. Foot x-ray 02/06/23. Showed equivocal minimal marginal erosions along lateral surface of distal first metatarsal adjacent to the metatarsophalangeal joint, which could be seen in setting of gout. Labs were drawn 02/06/23. Reviewed labs with pt. Mild anemia. Uric acid level 6.1 and improved from 8.0. Blood pressure today 146/64. He is on metoprolol 25mg and amlodipine 10mg daily. HPI Comments History of Present Illness Details Documentation assistance for Tod Monte MD, was provided by John Simeon,? Agriculture Specialist on 02/22/2023 10:24 AM EST. I, Dr. Monte, have read, observed, and verified documentation.? 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 Jewel De Oliveira, Madeline Magana, Kiel Pantoja and colleagues, with an educational den from [employer]. Review of Systems Const Denies chills, Denies fatigue, Denies fever(s), Denies headache(s) and Denies weakness ENT Denies dizziness and Denies headache(s) Card Denies chest pain, Denies lightheadedness, Denies dyspnea and Denies other (Palpitations) Resp Denies cough, Denies dyspnea, Denies wheezing and Denies other ( shortness of breath) Musc Denies numbness and Denies tingling Neuro Denies dizziness, Denies headache(s), Denies numbness, Denies tingling, Denies paresthesias and Denies weakness Psych Denies anxiety and Denies depression Endo Denies fatigue Aller/Immun Denies wheezing Physical exam (Primary Care) Vital Signs: Last Vital Signs Temp 97.6 F 02/22/23 09:10 Pulse 57 02/22/23 09:10 Resp 13 02/22/23 09:10 BP 132/58 L 02/22/23 10:53 Pulse Ox 100 02/22/23 09:10 Oxygen Delivery Method Room Air 02/22/23 09:10 BMI result Body Mass Index 30.1 Tobacco/Smoking Status: Tobacco use Status Tobacco use date assessed 02/06/23 02/22/23 09:15 Patient Tobacco Use Status Never used Tobacco 02/22/23 09:15 e-Cigarette/Vaping Use Never Used 02/22/23 09:15 Thrive Assessment: Date of Thrive Assessment Date Thrive assessed 12/13/21 02/22/23 09:15 Const General: no acute distress and well developed Nutritional Appearance: well nourished Orientation/consciousness: patient oriented x3 [facility]: Yes normocephalic and Yes atraumatic Eyes General: appearance normal, both eyes and all related structures Pupils: Equal, round and reactive pupils present EOM: EOMs intact bilaterally Resp Effort & Inspection: normal respiratory effort Auscultation: clear to auscultation bilaterally Cardio Rate: regular rate Rhythm: regular rhythm Heart sounds: S1 normal heart sound present, S2 normal heart sound present, no gallops, no murmurs and no rubs Neuro General: patient oriented x3 and gait normal Cranial nerves: Yes Equal, round and reactive pupils present Psych Affect: normal affect Assessment and Plan Assessment & Plan (1) Gout: Code(s): M10.9 - Gout, unspecified Plan: Go flare has resolved and his uric acid has decreased from 8.0 down to 6.1 after increasing allopurinol to 200 mg daily Renal function labs are fine Continue allopurinol 200 mg daily Will monitor (2) Mild anemia: Code(s): D64.9 - Anemia, unspecified Plan: Will recheck CBC and investigate further with lab work along with his next visit. (3) Essential hypertension: Code(s): I10 - Essential (primary) hypertension Plan: Blood pressure mildly elevated at initial presentation but decreases in to controlled range with relaxation. Continue current medication regimen Orders: Orders Vitamin B12 and Folate Today D64.9 - Anemia, unspecified, E53.8 - Deficiency of other specified B group vitamins Reticulocyte Count Today D64.9 - Anemia, unspecified Uric Acid Today M10.9 - Gout, unspecified Comprehensive Met. Panel Today M10.9 - Gout, unspecified Complete Blood Count Auto Diff Today D64.9 - Anemia, unspecified, Z00.00 - Encounter for general adult medical examination without abnormal findings IRON PROFILE Today D64.9 - Anemia, unspecified Coding Level of Care Code Est Pt Level 3 (25320) Diagnoses Gout M10.9 Mild anemia D64.9 Essential hypertension I10
[2023-02-22 09:10] VITALS: BP 146/64; PULSE 57; RESP 13; TEMP 36.4; O2SAT 100; BMI 30.1
[2023-02-22 10:53] VITALS: BP 132/58
== END 2023-02-22 10:53 | disposition home or self-care (01) ==
PROVIDERS: PCP Family Medicine; Visit Provider Family Medicine
DX: M10.9 Gout, unspecified (principal); D64.9 Anemia, unspecified; I10 Essential (primary) hypertension
CPT/HCPCS: 99213

== ENCOUNTER 2023-03-06 11:09 | Outpatient (AMB) | payer OTHER, SELFPAY ==
--- NOTE | 2023-03-06 11:10 | MHC.OFFVIS ---
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 Patient reports ongoing pain for a year. He states that he was seen at [facility] and they told him infection in his elbow. Patient reports having concerns of a bone chip in his ankle and would like it removed. 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 The patient was admitted to the [facility] from 01/22/2023-01/23/2023 status post 6 months of right elbow pain following trauma; for acute kidney injury and bursitis. He reported to them that he re-injured the elbow on 01/12/2023. He reported being seen at [facility] on 01/20/2023 where he was put on antibiotics, Bactrim. He was given vancomycin during his inpatient stay and he was discharged on doxycycline. He followed up with his PCP on 01/29/2023, who extended his doxycycline due to continued pain, edema, and warmth. He followed up a second time with his PCP on 02/06/2023 who started the patient on Prednisone for gout flare up due to a uric acid level of 8. Labs on 02/22/2023 showed a uric acid of 6.1. While in the office today he reports ongoing pain for a year, since 2021. He states he was seen at [facility] and was told he had an infection in the right elbow. The patient reports having a bone chip in the ankle and would like to discuss having the chip removed. Patient has a history of gout, with a left foot flare up in 01/2023. 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 Current occupational exposures/hazards: No Cognitive needs: No Hearing needs: No Vision needs: No Review of Systems Const All systems reviewed & are unremarkable except as noted in HPI and below Physical Exam Vital Signs: BMI result Body Mass Index 30.1 Const General: cooperative and no acute distress Orientation/consciousness: patient oriented x3 Resp Effort & Inspection: normal respiratory effort and able to speak in complete sentences Cardio Peripheral pulses: Peripheral pulses 2+ throughout Skin General skin exam: no rashes or lesions noted Neuro General: patient oriented x3 Extrem Other: Right elbow: Normal to inspection. No ecchymosis, erythema, or edema. No tenderness to palpation over the olecranon. No tenderness to the medial or lateral epicondyle. NVI. Assessment & Plan Assessment & Plan (1) Bursitis of right elbow: Code(s): M70.31 - Other bursitis of elbow, right elbow Qualifiers: Elbow bursitis location: unspecified Qualified Code(s): M70.31 - Other bursitis of elbow, right elbow Plan Mr. Melvin is a 57-year-old right hand dominant male who presents in the office today, as a new patient, for an evaluation of right elbow pain. The patient was admitted to the [facility] from 01/22/2023-01/23/2023 status post 6 months of right elbow pain following trauma; for acute kidney injury and bursitis. He reported to them that he re-injured the elbow on 01/12/2023. He reported being seen at [facility] on 01/20/2023 where he was put on antibiotics, Bactrim. He was given vancomycin during his inpatient stay and he was discharged on doxycycline. He followed up with his PCP on 01/29/2023, who extended his doxycycline due to continued pain, edema, and warmth. He followed up a second time with his PCP on 02/06/2023 who started the patient on Prednisone for gout flare up due to a uric acid level of 8. Labs on 02/22/2023 showed a uric acid of 6.1. While in the office today he reports ongoing pain for a year, since 2021. He states he was seen at [facility] and was told he had an infection in the right elbow. The patient reports having a bone chip in the ankle and would like to discuss having the chip removed. Patient has a history of gout, with a left foot flare up in 01/2023. The patient reports his elbow symptoms had resolved prior to today?s appointment. He wanted to keep the appointment in order to establish care with a different orthopedic provider. Follow up will be PRN, or sooner if needed. X-rays of the right elbow, obtained on 01/22/2023 at [facility], revealed: medial soft tissue swelling and no definite fracture identified. Patient Instructions: Scribed for Leanne Stephens PA-C by Cheli Fregoso medical records assistant, on 03/06/2023 at 11:16 am, EST. Coding Level of Care Code New Pt Level 3 (29047) Diagnoses Bursitis of right elbow, unspecified bursa M70.31 Elbow bursitis location: unspecified
[2023-03-06 11:15] VITALS: BMI 30.1
== END 2023-03-06 11:55 | disposition home or self-care (01) ==
PROVIDERS: PCP Family Medicine; Visit Provider Physician Assistant
DX: M70.31 Other bursitis of elbow, right elbow (principal)
CPT/HCPCS: 99203

== ENCOUNTER → 2023-03-06 11:09 | Outpatient (BNVA) | payer OTHER, SELFPAY | PROVIDERS: PCP Family Medicine; Visit Provider Physician Assistant ==

== ENCOUNTER 2023-10-24 09:32 | Outpatient (AMB) | payer OTHER, SELFPAY ==
[2023-10-24 09:50] VITALS: BP 158/80; PULSE 51; O2SAT 100; BMI 31.8
--- NOTE | 2023-10-24 09:50 | A.OFFPC_ITS ---
Vital Signs 10/24/23 09:50 Height 5 ft 10 in Weight 221 lb 6 oz BMI 31.8 BP 158/80 H Blood Pressure Location Lt brachial Position Sitting Pulse 51 Pulse Source Pulse Oximeter Pulse Oximetry (%) 100 Oxygen Delivery Method Room Air Intake Visit Reasons: follow up uric acid Intake Note: Patient is here to follow up on uric acid, and would like to talk about blood pressure medication. Allergies Sulfa (Sulfonamide Antibiotics) Allergy (Unknown, Verified 10/24/23 09:52) Itching Tobacco use date assessed: 10/24/23 Dental Screening Dental Screen Date: 10/24/23 Did you have a dental visit in the last 12 months?: Yes Did you have a dental problem in the last 6 months where you did not have access to dental care?: No Was dental information given to patient?: Patient has dentist HPI follow up uric acid HPI Details 58 y/o male presents to f/u gout, elevat ed uric acid levels as well as hypertension and mild anemia. Blood pressure today 158/80. He is on amlodipine 10mg, metoprolol 25mg daily. No recent labs to review. HPI Comments History of Present Illness Details Documentation assistance for Tod Monte MD, was provided by John Simeon, Hris Analyst on 10/24/2023 10:26 AM EST. I, Dr. Monte, have read, observed, and verified documentation. 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 1. Little interest or pleasure in doing things: not at all 2. Feeling down, depressed, or hopeless: not at all 3. Trouble falling or staying asleep, or sleeping too much: not at all 4. Feeling tired or having little energy: not at all 5. Poor appetite or overeating: not at all 6. Feeling bad about yourself - or that you are a failure or have let yourself or your family down: not at all 7. Trouble concentrating on things, such as reading the newspaper or watching television: not at all 8. Moving or speaking so slowly that other people could have noticed. Or the opposite - being so fidgety or restless that you have been moving around a lot more than usual: not at all 9. Thoughts that you would be better off or of hurting yourself in some way: not at all Total score: 0 Depression Screening Interpretation: Negative Depression Screening Done: Yes 64585 - PHQ-9 Billing: Yes Source: Developed by Drs. Jewel De Oliveira, Madeline Magana, Kiel Pantoja and colleagues, with an educational den from [employer]. Thrive Questionnaire Date Thrive assessed: 10/24/23 I am a: Patient What is your living situation today?: I have a steady place to live Within the past 12 months, did the food you bought not last and you didn't have the money to get more?: Never true Within the past 12 months, did you worry whether your food would run out before you got money to buy more?: Never true Do you have trouble paying for medicines?: No Do you have trouble getting transportation to medical appointments?: No Do you have trouble paying your heating and electricity bill?: No Do you have trouble taking care of your child, family member or friend?: No Do you have trouble with day-to-day activities such as bathing, preparing meals, shopping, managing finances, etc.?: No Are you currently unemployed and looking for a job?: No Are you interested in more education?: Yes THRIVE Score: 0 AUDIT C Alcohol Use Questionnaire (AUDIT-C) 1. How often do you have a drink containing alcohol?: Never 3. How often do you have six or more drinks on one occasion?: Never Total Score: 0 ASHKAN-7 AMB Questionnaire ASHKAN-7 Date ASHKAN - 7 assessed: 10/24/23 Feeling nervous, anxious, or on edge: 0 = Not at all Not being able to stop or control worryin = Not at all Worrying too much about different things: 0 = Not at all Trouble relaxin = Not at all Being so restless that it is hard to sit still: 0 = Not at all Becoming easily annoyed or irritable: 0 = Not at all Feeling afraid as if something awful might happen: 0 = Not at all Total ASHKAN-7 score (0-4 normal; 5-9 mild; 10-14 moderate; 15-21 severe): 0 Source: Developed by Drs. Jewel De Oliveira, Madeline Magana, Kiel Pantoja and colleagues, with an educational den from [employer]. ASHKAN-7 Assessment Billing ASHKAN-7 Assessment Tool: ASHKAN-7 Assessment 15011 Review of Systems Const Denies chills, Denies fatigue, Denies fever(s), Denies headache(s) and Denies weakness ENT Denies dizziness and Denies headache(s) Card Denies dyspnea Resp Denies cough, Denies dyspnea, Denies wheezing and Denies other (shortness of breath) Musc Denies numbness and Denies tingling Neuro Denies dizziness, Denies headache(s), Denies numbness, Denies tingling and Denies weakness Psych Denies anxiety and Denies depression Endo Denies fatigue Aller/Immun Denies wheezing Physical exam (Primary Care) Vital Signs: Last Vital Signs Pulse 51 10/24/23 09:50 BP 158/80 H 10/24/23 09:50 Pulse Ox 100 10/24/23 09:50 Oxygen Delivery Method Room Air 10/24/23 09:50 BMI result Body Mass Index 31.8 Tobacco/Smoking Status: Tobacco use Status Tobacco use date assessed 10/24/23 10/24/23 10:01 Patient Tobacco Use Status Never used Tobacco 10/24/23 09:53 e-Cigarette/Vaping Use Never Used 10/24/23 09:53 PHQ-9: PHQ-9 Score PHQ-9: Total score 0 10/24/23 10:24 Depression Screening Interpretation: Negative Thrive Assessment: Date of Thrive Assessment Date Thrive assessed 10/24/23 10/24/23 10:01 Const General: well developed; No acute distress Nutritional Appearance: well nourished Orientation/consciousness: patient oriented x3 HENMT Head: Yes normocephalic and Yes atraumatic Eyes General: appearance normal, both eyes and all related structures Pupils: Equal, round and reactive pupils present EOM: EOMs intact bilaterally Resp Effort & Inspection: normal respiratory effort Neuro General: patient oriented x3 and gait normal Cranial nerves: Yes Equal, round and reactive pupils present Psych Affect: normal affect Assessment and Plan Assessment & Plan (1) Essential hypertension: Code(s): I10 - Essential (primary) hypertension Plan: Blood?pressure?is?high.??Goal?is?less?than?140/90 Will?change?amlodipine?10?mg?daily?to?amlodipine-olmesartan?10/40?mg?daily Continue?metoprolol He?had?also?been?on?chlorthalidone ?50?mg?in?the?past.??We?may?need?to?add?this?back?at?some?point.??Would?advise?g ood?hydration?as?he?had?had?an?infection?and?dehydration?when?this?was?stopped. Will?follow-up?in?1?month (2) Gout: Code(s): M10.9 - Gout, unspecified Plan: Had?adjusted?patient's?allopurinol?and?we?will?reche ck?labs.??Patient?has?not?gotten?these?drawn?yet?but?will?do?so?today. (3) Mild anemia: Code(s): D64.9 - Anemia, unspecified Plan: Was?rechecking?mild?microcytic?anemia?with?a?likely?reactive?thrombocytosis?but? patient?has?not?had?labs?drawn.??He?will?get?this?done?today. Medications: Changed From amlodipine-olmesartan 10-40 mg 1 tab PO DAILY To amlodipine-olmesartan 10-40 mg 1 tab PO DAILY 90 days 90 tabs 3RF Discontinued amlodipine Discontinued Reason: Doctor's Order 10 mg PO DAILY 90 days 90 tabs 3RF Coding Level of Care Code Est Pt Level 3 (82910) Diagnoses Essential hypertension I10 Gout M10.9 Mild anemia D64.9 Additional Codes ASHKAN-7 Assessment Billing - ASHKAN-7 Assessment Tool: ASHKAN-7 Assessment 15435 ([id number])
== END 2023-10-24 10:42 | disposition home or self-care (01) ==
PROVIDERS: PCP Family Medicine; Visit Provider Family Medicine
DX: I10 Essential (primary) hypertension (principal); M10.9 Gout, unspecified; D64.9 Anemia, unspecified
CPT/HCPCS: 99214

== ENCOUNTER 2023-10-24 10:58 | Outpatient (REF) | payer OTHER, SELFPAY ==
[2023-10-24 14:27] LABS: MANUAL DIFF FLAG NO
[2023-10-24 14:31] LABS: Basophils Absolute Auto 0.1 X10*3/uL (0.0-0.2); Basophils Percent Auto 1.2 % (0-2); Eosinophils Absolute Auto 0.2 X10*3/uL (0.0-0.4); Eosinophils Percent Auto 3.5 % (0-4); Hematocrit 40.7 % (42.0-52.0); Hemoglobin 14.1 g/dl (14.0-18.0); Imm Gran Abs Auto 0.01 X10*3/uL (0.00-0.03); Imm Gran Pct Auto 0.1 % (0.0-0.4); Immature Retic Fraction 20.5 % (2.3-13.4); Lymphocytes Absolute Auto 3.4 X10*3/uL (1.2-4.9); Lymphocytes Percent Auto 50.1 % (20-40); Mean Corpuscular HGB Conc 34.6 g/dl (31.0-36.0); Mean Corpuscular Hemoglobin 30.1 pg (27.0-33.0); Mean Platelet Volume 10.1 fL (9.4-12.4); Monocytes Absolute Auto 0.7 X10*3/uL (0.1-1.2); Monocytes Percent Auto 10.1 % (2-11); Neutrophils Absolute Auto 2.4 x10*3/uL (2.0-8.3); Platelet Count 241 X10*3/uL (160-400); Red Blood Count 4.68 X10*6/uL (4.60-5.80); Red Cell Distribution Width 14.4 % (11.0-16.0); Retic HGB Equivalent 32.5 pg (30.0-35.0); Reticulocyte Percent 2.4 % (0.5-1.8); White Blood Count 6.9 X10*3/uL (4.8-10.8)
[2023-10-24 14:44] LABS: Alanine Aminotransferase 34 U/L (0-40); Albumin Level 3.9 g/dL (3.5-5.0); Alkaline Phosphatase 128 U/L (39-117); Anion Gap 14 (12-20); Aspartate Amino Transferase 34 U/L (5-37); Bilirubin Total 0.5 mg/dL (0.0-1.0); Blood Urea Nitrogen 11 mg/dL (9-16); Calcium 9.4 mg/dL (8.4-10.2); Carbon Dioxide 27 mmol/L (22-29); Chloride 105 mmol/L (96-108); Estimated Glomerular Filt Rate > 60; Glucose Random 98 mg/dL (60-115); Iron 96 mcg/dL (45-160); Percent Iron Saturation 29 % (15-50); Potassium 3.1 mmol/L (3.3-5.1); Sodium 143 mmol/L (135-145); Total Iron Binding Capacity 336 mcg/dL (228-428); Total Protein 7.5 g/dL (6.5-8.0); Unsaturated Iron Binding 240 ug/dL; Uric Acid 6.1 mg/dL (3.4-7.0)
[2023-10-24 15:45] LABS: Folate 12.4 ng/mL (> or = 4.0); Vitamin B12 299 pg/mL (200-900)
== END 2023-10-24 10:59 | disposition home or self-care (01) ==
LOC: HO.WFDLDS 10:58
PROVIDERS: Visit Provider Family Medicine
DX: Z00.00 Encounter for general adult medical examination without abnormal findings (principal); M10.9 Gout, unspecified; D64.9 Anemia, unspecified; E53.8 Deficiency of other specified B group vitamins
CPT/HCPCS: 36415; 80053; 82607; 82746; 83540; 84550; 85025; 85045

== ENCOUNTER 2023-12-03 11:26 | Outpatient (AMB) | payer OTHER, SELFPAY ==
--- NOTE | 2023-12-03 11:48 | A.OFFPC_ITS ---
Vital Signs 12/03/23 11:52 Height 5 ft 10 in Weight 219 lb 2 oz BMI 31.4 BP 152/98 H Blood Pressure Location Lt brachial Position Sitting Pulse 48 L Pulse Source Pulse Oximeter Pulse Oximetry (%) 98 Oxygen Delivery Method Room Air Intake Visit Reasons: f/u hypertension & labs Intake Note: Patient is here for follow up on hypertension and labs today. Allergies Sulfa (Sulfonamide Antibiotics) Allergy (Unknown, Verified 12/03/23 11:56) Itching Medication List - Last Reconciled 12/03/23 by Tod Monte MD allopurinol 200 mg (2 x 100 mg) PO DAILY 90 days amlodipine-olmesartan 10-40 mg 1 tab PO DAILY 90 days meloxicam 15 mg PO DAILY 30 days metoprolol succinate ER 25 mg PO DAILY 90 days Tobacco use date assessed: 12/03/23 Dental Screening Dental Screen Date: 10/24/23 HPI f/u hypertension & labs HPI Details 58 y/o male presents to f/u hypertension as well as CBC and uric acid levels. Had changed his amlodipine to amlodopine-olmesartan and continued metoprolol. Blood pressure today 152/98, 48p. Pt reports he continues to take his medications as prescribed. Labs were drawn 10/24/23. Reviewed labs with pt. Mild anemia has improved. Uric acid level 6.1 mg/dL. 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 Jewel De Oliveira, Madeline Magana, Kiel Pantoja and colleagues, with an educational den from [employer]. Review of Systems Const Denies chills, Denies fatigue, Denies fever(s), Denies headache(s) and Denies weakness ENT Denies dizziness and Denies headache(s) Card Denies dyspnea Resp Denies cough, Denies dyspnea, Denies wheezing and Denies other (shortness of breath) Musc Denies numbness and Denies tingling Neuro Denies dizziness, Denies headache(s), Denies numbness, Denies tingling and Denies weakness Psych Denies anxiety and Denies depression Endo Denies fatigue Aller/Immun Denies wheezing Physical exam (Primary Care) Vital Signs: Last Vital Signs Pulse 48 L 12/03/23 11:52 BP 152/98 H 12/03/23 11:52 Pulse Ox 98 12/03/23 11:52 Oxygen Delivery Method Room Air 12/03/23 11:52 BMI result Body Mass Index 31.4 Tobacco/Smoking Status: Tobacco use Status Tobacco use date assessed 12/03/23 12/03/23 11:57 Patient Tobacco Use Status Never used Tobacco 12/03/23 11:51 e-Cigarette/Vaping Use Never Used 12/03/23 11:51 Thrive Assessment: Date of Thrive Assessment Date Thrive assessed 10/24/23 12/03/23 11:51 Const General: well developed; No acute distress Nutritional Appearance: well nourished Orientation/consciousness: patient oriented x3 HENMT Head: Yes normocephalic and Yes atraumatic Eyes General: appearance normal, both eyes and all related structures Pupils: Equal, round and reactive pupils present EOM: EOMs intact bilaterally Resp Effort & Inspection: normal respiratory effort Auscultation: clear to auscultation bilaterally Cardio Rate: regular rate Rhythm: regular rhythm Heart sounds: S1 normal heart sound present, S2 normal heart sound present, no gallops, no murmurs and no rubs Neuro General: patient oriented x3 and gait normal Cranial nerves: Yes Equal, round and reactive pupils present Psych Affect: normal affect Assessment and Plan Assessment & Plan (1) Essential hypertension: Code(s): I10 - Essential (primary) hypertension Plan: Blood?pressure?is?still? high?despite?3?medications;?resistant?hypertension.??Goal?is?less?than?140/90 He?has?been?on?meloxicam?still?and?I?advised?he?stop?this?medication Will?also?watch?salt/sodium?in?diet No?medication?changes?were?made?today Also?checking?labs?including?metanephrines Checking?renal?Doppler?and?also?echocardiogram Follow-up?in?2?months Call?or?return?to?office?if?any?new?concerns?or?problems. (2) Mild anemia: Code(s): D64.9 - Anemia, unspecified Plan: This?seems?to?be?resolving Will?monitor (3) Screening for colon cancer: Code(s): Z12.11 - Encounter for screening for malignant neoplasm of colon Plan: Due?for?colonoscopy-referred?back?to?gastroenterology Orders: Orders US renal doppler Today I1A.0 - Resistant hypertension CA echo transthoracic complete Today I1A.0 - Resistant hypertension Metanephrines, Plasma Today I1A.0 - Resistant hypertension Referrals Gastroenterology Referral Z12.11 - Encounter for screening for malignant neoplasm of colon Coding Level of Care Code Est Pt Level 3 (07446) Diagnoses Essential hypertension I10 Mild anemia D64.9 Screening for colon cancer Z12.11
[2023-12-03 11:52] VITALS: BP 152/98; PULSE 48; O2SAT 98; BMI 31.4
== END 2023-12-03 12:32 | disposition home or self-care (01) ==
PROVIDERS: PCP Family Medicine; Visit Provider Family Medicine
DX: I10 Essential (primary) hypertension (principal); D64.9 Anemia, unspecified; Z12.11 Encounter for screening for malignant neoplasm of colon
CPT/HCPCS: 99214

== ENCOUNTER 2023-12-14 08:01 | Outpatient (REF) | payer OTHER, SELFPAY ==
--- NOTE | ~2023-12-14 | US_ITS ---
EXAMINATION: ULTRASOUND OF KIDNEYS WITH RENAL ARTERY DOPPLER CLINICAL INFORMATION: Hypertension. COMPARISON: CT urogram 02/13/2023. TECHNIQUE: Ultrasound of the kidneys was performed along with color flow Doppler imaging and velocity measurements in the proximal mid and distal renal arteries. Aortic velocities were measured and renal/aortic ratios were calculated. Segmental resistive indices were calculated bilaterally. The renal veins were examined for patency. FINDINGS: The kidneys appeared unremarkable with the right kidney measuring 11.2 x 4.9 x 6.1 cm and the left kidney measuring 10.8 x 6.0 x 8.0 cm. No renal masses, renal stones or hydronephrosis is seen. Renal cortical thickness appears normal. Velocity measurements in the proximal mid and distal renal arteries are normal. Velocity in the aorta is over 100 cm/s at 132 cm/s and therefore cannot be used to calculate renal aortic ratios. Segmental resistive indices were calculated and were all normal. The renal veins are patent. The bladder was not examined. US/US renal doppler IMPRESSION: No evidence to suggest renal artery stenosis.
--- NOTE | ~2023-12-14 | US_ITS ---
EXAMINATION: ULTRASOUND OF KIDNEYS WITH RENAL ARTERY DOPPLER CLINICAL INFORMATION: Hypertension. COMPARISON: CT urogram 02/13/2023. TECHNIQUE: Ultrasound of the kidneys was performed along with color flow Doppler imaging and velocity measurements in the proximal mid and distal renal arteries. Aortic velocities were measured and renal/aortic ratios were calculated. Segmental resistive indices were calculated bilaterally. The renal veins were examined for patency. FINDINGS: The kidneys appeared unremarkable with the right kidney measuring 11.2 x 4.9 x 6.1 cm and the left kidney measuring 10.8 x 6.0 x 8.0 cm. No renal masses, renal stones or hydronephrosis is seen. Renal cortical thickness appears normal. Velocity measurements in the proximal mid and distal renal arteries are normal. Velocity in the aorta is over 100 cm/s at 132 cm/s and therefore cannot be used to calculate renal aortic ratios. Segmental resistive indices were calculated and were all normal. The renal veins are patent. The bladder was not examined. US/US renal BI IMPRESSION: No evidence to suggest renal artery stenosis.
== END 2023-12-14 08:02 | disposition home or self-care (01) ==
LOC: HO.US 08:01
PROVIDERS: PCP Family Medicine; Visit Provider Urology
DX: N28.1 Cyst of kidney, acquired (principal); I1A.0 Resistant hypertension; R31.29 Other microscopic hematuria; N17.9 Acute kidney failure, unspecified
CPT/HCPCS: 76775; 93975

== ENCOUNTER 2023-12-20 10:55 | Outpatient (AMB) | payer OTHER, SELFPAY ==
--- OUTSIDE RECORDS SUMMARY | 2023-12-20 10:57 | XMS_ITS | Continuity of Care Document ---
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 Role Phone Hernandez Cordoba DO Primary Care Physician [phone] Encounter [facility] AC[facility] R [id number] Date(s): 09/18/23 - 10/18/23 [facility] [address] [place] [address]- Attending Physician: Elmer Cueva Admitting Physician: AdmElmer hackett Referring Physician: AdmtrElmer Allergies, Adverse Reactions, Alerts No Known Allergies Medications allopurinol 100 mg oral tablet 100 mg, 1, tablet, By Mouth, Daily, # 30 tablet, Refills 0, Maintenance, 01/22/23 16:54:00 EDT, Partial fill upon patient request if the prescription is for a schedule II opioid drug. Start Date: 01/22/23 Status: Ordered amLODIPine 10 mg oral tablet 10 mg, By Mouth, Daily, # 14 capsule, Refills 0, Tot. Refills 0, Maintenance, 01/23/23 12:37:00 EDT, Route to Pharmacy Electronically, [facility], Partial fill upon patient request if the prescription is for a schedule II opioid drug., 1... Start Date: 01/23/23 Stop Date: 02/06/23 Status: Ordered Crutches See Instructions, # 1 pair, Maintenance, decrease weight bearing, 03/23/10 18:15:20 Start Date: 03/23/10 Status: Ordered Metoprolol Succinate ER 25 mg oral tablet, extended release TAKE 1 TABLET BY MOUTH EVERY DAY Start Date: 01/22/23 Status: Ordered Problem List Condition Confirmation Course Effective Dates Status Health [facility] Informant Obese class I Confirmed Active Patient Care team information Care Team Personnel Name: Hernandez Cordoba DO Position: Reference Physician Member Role: PCP Address: Address: [address] [facility] [place] [address]- Name: Dionne Bermudez RN, I Position: S RN Member Role: Primary Care Nurse Care Team Related Persons Name: SADAF CORREIA Address: home [address] [place] [address] Name: WALLY HARRIS Address: home [address] [place] [id number] Name: KATRIN LANCASTER Address: home [address] [place] [address]
--- OUTSIDE RECORDS SUMMARY | 2023-12-20 10:57 | XMS_ITS | Continuity of Care Document ---
Author Organization [facility] Address [address] [place] [address]- Care Team Providers Care Glass Embosser Name Role Phone Hernandez Cordoba DO Primary Care Physician [phone] [id number] Date(s[facility]/21[facility] - 05/28/22 [facility] [address] [place] [address]- Attending Physician: Paresh York DO Referring Physician: Hernandez Cordoba DO Allergies, Adverse Reactions, Alerts No Known Allergies Medications Crutches See Instructions, # 1 pair, Maintenance, decrease weight bearing, 03/23/10 18:15:20 Start Date: 03/23/10 Status: Ordered ibuprofen 600 mg oral tablet 1 tablet = 600 mg, By Mouth, 4 times a day, # 20 tablet, 0 Refills, Maintenance Start Date: 03/23/10 Stop Date: 03/28/10 Status: Ordered Vital Signs Most recent to oldest [Reference Range]: 1 Height 177.8 cm (05/21/22 8:24 AM) Oxygen Saturation [94-100 %] 100 % (05/21/22 8:24 AM) Pulse Rate [55-90 bpm] 50 bpm *L* (05/21/22 8:24 AM) Blood Pressure [90-138/55-84 mm Hg] 128/ 72mm Hg (05/21/22 8:24 AM) Respiratory Rate [16-30 br/min] 17 br/mi n (05/21/22 8:24 AM) Temperature [96.8-100.4 DegF] 96.9 DegF (05/21/22 8:24 AM) Mode of Delivery (Oxygen) Room air (05/21/22 8:24 AM) Blood pressure sites Arm, right (05/21/22 8:24 AM) Note * Brian Villalta: SIGN, VERIFY, PERFORM Event Display: Patient Education/Instruction Authored Date: [id number] [facility] *[facility] Clinical Summary Name NINA [place] Age 56 Years 1965 PCP Hernandez Cordoba DO PCP [facility]# [id number] Visit Date 05/21/2022 08:09:00 Additional Instructions: I suspect you have a viral upper respiratory infection. Antibiotics are not needed. Your COVID/RSV/influenza swab is pending. Your blood pressure today was 128/72. Follow up with your primary provider. Call today or tomorrow for appointment. Go to the Emergency Department if symptoms worsen, don??t improve, or there is any other concern. Get well soon! Thank you for visiting our urgent care today. Our entire team works together to provide you with the best care possible. Examination and treatment you received at the urgent care has been rendered on an urgent basis only. It is not intended to be a substitute for or an effort to provide complete medical care. You should follow-up with your primary care provider. Please report to your physician any new or remaining problems, because it is impossible to recognize and treat all elements of injury or illness in a single urgent care visit. In the event that you are unable to obtain a follow-up appointment in a timely fashion, OR you are not getting any better, OR you are getting worse, OR you develop any symptoms of concern, please return here immediately for further evaluation OR go to your nearest Emergency Department. Scheduled Appointments?? Future Appointments ?No Future Appointments Scheduled Follow-Up Instructions ?? Diagnosis Cough, unspecified Medications: Please continue your medications until treatment is completed or stopped by your provider. Discuss any questions related to medications with your provider. Medications to Continue with No Changes These medications were not printed or sent to your pharmacy Durable Medical Equipment (Crutches) decrease weight bearing. Refills: 0. Next Dose: Ibuprofen (ibuprofen 600 mg oral tablet) 1 tab(s) Oral 4 times a day for 5 Days. Refills: 0. Next Dose: Allergy Info:?? NKA Medications Given This Visit Future Orders ?COVID-19, RSV, and Flu A/B, Rapid PCR? Order Date:05/21/22?- Complete on or after?05/21/22 Vital Signs Height 177.8 cm Weight BMI Blood Pressure 128 mm Hg/72 mm Hg Temperature 96.9 DegF Pulse Rate 50 bpm Respiratory Rate 17 br/min 02 Sat Mode of Delivery 100 %/Room air You can now view a summary of your hospital visit from the comfort of your home through a free online portal called [employer]. [employer] is a website that allows you to securely view your medical information including discharge summary, medications and follow-up visits. ??You can alsosend a secure electronic message to your doctor???s office to request appointments, renew medications or just ask a question. You can enroll at [email or web address] or register during your next office visit. Disclaimer:?? The information provided is of a general nature and is intended to be used in conjunction with the recommendations and advice of your health care practitioner. ??Every effort has been made to ensure that the information provided is accurate and complete at the time it is provided to you however, as your needs change, or, as new ??information becomes available, different or additional instructions may be required. If you have questions, please consult with your primary care provider or pharmacist, as appropriate. ??This information is not intended to serve as substitution for assessment and evaluation by a qualified health care provider. If you do not have a primary care provider, you may find a [facility] provider by calling [facility] [employer] Link at [phone]. For information about the plan of care including goals and instructions for your diagnosis, please see the patient education orders section of this document. Patient Education Materials?? The content of this educational material or handout may have been modified, supplemented, or adapted from its original content and format to support your individualized medical care. * Colon KISHORE Nitobrendan: PERFORM, SIGN, VERIFY Event Display: Patient Education/Instruction Authored Date: [id number] [facility] *[facility] Clinical Summary Name NINA [place] Age 56 Years 1965 PCP Hernandez Cordoba DO PCP Visit Date 05/21/2022 08:09:00 Additional Instructions: I suspect you have a viral upper respiratory infection. Antibiotics are not needed. Your COVID/RSV/influenza swab is pending. Your blood pressure today was 128/72. Follow up with your primary provider. Call today or tomorrow for appointment. Go to the Emergency Department if symptoms worsen, don??t improve, or there is any other concern. Get well soon! Thank you for visiting our urgent care today. Our entire team works together to provide you with the best care possible. Examination and treatment you received at the urgent care has been rendered on an urgent basis only. It is not intended to be a substitute for or an effort to provide complete medical care. You should follow-up with your primary care provider. Please report to your physician any new or remaining problems, because it is impossible to recognize and treat all elements of injury or illness in a single urgent care visit. In the event that you are unable to obtain a follow-up appointment in a timely fashion, OR you are not getting any better, OR you are getting worse, OR you develop any symptoms of concern, please return here immediately for further evaluation OR go to your nearest Emergency Department. Scheduled Appointments?? Future Appointments ?No Future Appointments Scheduled Follow-Up Instructions ?? Diagnosis Cough, unspecified Medications: Please continue your medications until treatment is completed or stopped by your provider. Discuss any questions related to medications with your provider. Medications to Continue with No Changes These medications were not printed or sent to your pharmacy Durable Medical Equipment (Crutches) decrease weight bearing. Refills: 0. Next Dose: Ibuprofen (ibuprofen 600 mg oral tablet) 1 tab(s) Oral 4 times a day for 5 Days. Refills: 0. Next Dose: Allergy Info:?? NKA Medications Given This Visit Future Orders ?COVID-19, RSV, and Flu A/B, Rapid PCR? Order Date:05/21/22?- Complete on or after?05/21/22 Vital Signs Height 177.8 cm Weight BMI Blood Pressure 128 mm Hg/72 mm Hg Temperature 96.9 DegF Pulse Rate 50 bpm Respiratory Rate 17 br/min 02 Sat Mode of Delivery 100 %/Room air You can now view a summary of your hospital visit from the comfort of your home through a free online portal called [employer]. [employer] is a website that allows you to securely view your medical information including discharge summary, medications and follow-up visits. ??You can alsosend a secure electronic message to your doctor???s office to request appointments, renew medications or just ask a question. You can enroll at [email or web address] or register during your next office visit. Disclaimer:?? The information provided is of a general nature and is intended to be used in conjunction with the recommendations and advice of your health care practitioner. ??Every effort has been made to ensure that the information provided is accurate and complete at the time it is provided to you however, as your needs change, or, as new ??information becomes available, different or additional instructions may be required. If you have questions, please consult with your primary care provider or pharmacist, as appropriate. ??This information is not intended to serve as substitution for assessment and evaluation by a qualified health care provider. If you do not have a primary care provider, you may find a [facility] provider by calling [facility] [employer] Link at [phone]. For information about the plan of care including goals and instructions for your diagnosis, please see the patient education orders section of this document. Patient Education Materials?? The content of this educational material or handout may have been modified, supplemented, or adapted from its original content and format to support your individualized medical care. * Filiberto Vogt: PERFORM, SIGN, VERIFY Event Display: Patient Education/Instruction Authored Date: [id number] [facility] *[facility] Clinical Summary Name NINA [place] Age 56 Years 1965 PCP Hernandez Cordoba DO PCP Visit Date 05/21/2022 08:09:00 Additional Instructions: I suspect you have a viral upper respiratory infection. Antibiotics are not needed. Your COVID/RSV/influenza swab is pending. Your blood pressure today was 128/72. Follow up with your primary provider. Call today or tomorrow for appointment. Go to the Emergency Department if symptoms worsen, don??t improve, or there is any other concern. Get well soon! Thank you for visiting our urgent care today. Our entire team works together to provide you with the best care possible. Examination and treatment you received at the urgent care has been rendered on an urgent basis only. It is not intended to be a substitute for or an effort to provide complete medical care. You should follow-up with your primary care provider. Please report to your physician any new or remaining problems, because it is impossible to recognize and treat all elements of injury or illness in a single urgent care visit. In the event that you are unable to obtain a follow-up appointment in a timely fashion, OR you are not getting any better, OR you are getting worse, OR you develop any symptoms of concern, please return here immediately for further evaluation OR go to your nearest Emergency Department. Scheduled Appointments?? Future Appointments ?No Future Appointments Scheduled Follow-Up Instructions ?? Diagnosis Medications: Please continue your medications until treatment is completed or stopped by your provider. Discuss any questions related to medications with your provider. Medications to Continue with No Changes These medications were not printed or sent to your pharmacy Durable Medical Equipment (Crutches) decrease weight bearing. Refills: 0. Next Dose: Ibuprofen (ibuprofen 600 mg oral tablet) 1 tab(s) Oral 4 times a day for 5 Days. Refills: 0. Next Dose: Allergy Info:?? NKA Medications Given This Visit Future Orders ?No future orders Vital Signs Height 177.8 cm Weight BMI Blood Pressure 128 mm Hg/72 mm Hg Temperature 96.9 DegF Pulse Rate 50 bpm Respiratory Rate 17 br/min 02 Sat Mode of Delivery 100 %/Room air You can now view a summary of your hospital visit from the comfort of your home through a free online portal called [employer]. [employer] is a website that allows you to securely view your medical information including discharge summary, medications and follow-up visits. ??You can alsosend a secure electronic message to your doctor???s office to request appointments, renew medications or just ask a question. You can enroll at [email or web address] or register during your next office visit. Disclaimer:?? The information provided is of a general nature and is intended to be used in conjunction with the recommendations and advice of your health care practitioner. ??Every effort has been made to ensure that the information provided is accurate and complete at the time it is provided to you however, as your needs change, or, as new ??information becomes available, different or additional instructions may be required. If you have questions, please consult with your primary care provider or pharmacist, as appropriate. ??This information is not intended to serve as substitution for assessment and evaluation by a qualified health care provider. If you do not have a primary care provider, you may find a [facility] provider by calling [facility] [employer] Link at [phone]. For information about the plan of care including goals and instructions for your diagnosis, please see the patient education orders section of this document. Patient Education Materials?? The content of this educational material or handout may have been modified, supplemented, or adapted from its original content and format to support your individualized medical care. Patient Care team information Care Team Personnel Name: Hernandez Cordoba DO Position: Reference Physician Member Role: PCP Address: Address: [address] [facility] [place] [address]- Care Team Related Persons Name: SADAF CORREIA Address: [address] [place] [address] Name: WALLY HARRIS Address: [address] [place] [address] Name: KATRIN [place]
--- OUTSIDE RECORDS SUMMARY | 2023-12-20 10:57 | XMS_ITS | Continuity of Care Document ---
Author Organization [facility] Address [address] [place] [address]- Care Team Providers Care Nurse Rn Bsn Name Role Phone Hernandez Cordoba DO Primary Care Physician Encounter [facility] Date(s): 09/18/23 - 09/25/23 [facility] [address] [place] [address]- Encounter Diagnosis Strep pharyngitis(Discharge Diagnosis) - 09/18/23 Attending Physician: Yajaira Arango MD Referring Physician: Hernandez Cordoba DO Allergies, Adverse [...] 01/23/23 12:37:00 EDT, Route to Pharmacy Electronically, [facility], Partial fill upon patient [...] EVERY DAY Start Date: 01/22/23 Status: Ordered penicillin V potassium 500 mg oral tablet 1 tablet = 500 mg, By Mouth, Every 8 hours, for 10 days, # 30 tablet, 0 Refills, Acute 09/28/23 15:16:00 EDT, 09/18/23 15:16:00 EDT, Tablet, [facility]acy #[id number], Partial fill upon patient request if the prescription is for a schedule II opioid drug., 1... Start Date: 09/18/23 Stop Date: 09/28/23 Status: Ordered Problem List Condition Confirmation Course Effective Dates Status Health St atus Informant Obese class I Confirmed Active Diagnosis Diagnosis Type Effective Dates Health Status Clinical Service Informant Strep pharyngitis Discharge Diagnosis 09/18/23 Vital Signs Most recent to oldest [Reference Range]: 1 Height 179 cm (09/18/23 2:58 PM) Oxygen Saturation [94-100 %] 100 % (09/18/23 2:58 PM) Pulse Rate [55-90 bpm] 59 bpm (09/18/23 2:58 PM) Blood Pressure [90-138/55-84 mm Hg] 146/ 68mm Hg *H* (09/18/23 2:58 PM) Respiratory Rate [16-30 br/min] 20 br/mi n (09/18/23 2:58 PM) Temperature [96.8-100.4 DegF] 97.3 DegF (09/18/23 2:58 PM) Mode of Delivery (Oxygen) Room air (09/18/23 2:58 PM) Blood pressure sites Arm, left (09/18/23 2:58 PM) Temperature Route Temporal (09/18/23 2:58 PM) Patient Care team information Care Team Personnel Name: Hernandez Cordoba DO Position: Reference Physician Member Role: PCP Address: Address: [address] [place] [address] [address] [facility] [place], [place] [address] Name: Lara RN, Dionne Bryant Position: S RN Member Role: Primary Care Nurse Care Team Related Persons Name: SADAF CORREIA Address: [address] [place] [address] Name: WALLY HARRIS Address: home [address] [place] [id number] Name: KATRIN [place] Address: home [address] [place] [address]
--- NOTE | 2023-12-20 11:12 | MHC.OFFWIV ---
Intake Vital Signs 12/20/23 11:14 12/20/23 11:27 Height 5 ft 10 in Weight 217 lb 4 oz BMI 31.2 BP 148/60 H 130/62 Blood Pressure Location Lt brachial Lt brachial Position Sitting Sitting Pulse 60 Pulse Source Pulse Oximeter Temp 98.4 F Temp Source Oral Pulse Oximetry (%) 98 Oxygen Delivery Method Room Air Intake Visit Reasons: possible infection in left ankle Intake Note: Infection left ankle Patient Tobacco Use Status: Never used Tobacco Allergies Sulfa (Sulfonamide Antibiotics) Allergy (Unknown, Verified 12/03/23 11:56) Itching Medication List - Last Reconciled 12/20/23 by Sil Arora PA-C allopurinol 200 mg (2 x 100 mg) PO DAILY 90 days amlodipine-olmesartan 10-40 mg 1 tab PO DAILY 90 days metoprolol succinate ER 25 mg PO DAILY 90 days naproxen 500 mg PO BID Do you need a note to return to daycare/school/sports/work: No HPI possible infection in left ankle HPI Details Patient is a 58-year-old male with a significant past medical history of resistant hypertension, insomnia, chronic left ankle pain presenting today with complaints of a possible infected left ankle. He states that his left ankle has been painful since 2018. 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 He did follow with [facility] and states that they recommended surgery at that time but never did it. He states that since then he has had a couple infections with this joint. One time he was hospitalized for this and discharged with Keflex. He states it feels very similar in his ankle has been hot and swollen. There was no injury to the skin or ankle. He went to [facility] on Sunday there was provided naproxen, a boot and had an x-ray. He says that they did not think it was infected but he thinks it is infected. He does have a history of gout and is on allopurinol. Has not changed his diet recently. No fevers or chills. UTI she does have range of motion but flexion and extension elicit some pain. No numbness, tingling or weakness. Recently had blood pressure meds adjusted and his blood pressure today is 130/62. 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 Current occupational exposures/hazards: No Cognitive needs: No Hearing needs: No Vision needs: No Physical Exam Vital Signs: Last Vital Signs Temp 98.4 F 12/20/23 11:14 Pulse 60 12/20/23 11:14 BP 130/62 12/20/23 11:27 Pulse Ox 98 12/20/23 11:14 Oxygen Delivery Method Room Air 12/20/23 11:14 BMI result Body Mass Index 31.2 Const Orientation/consciousness: patient oriented x3 HEENT Ears: hearing grossly normal bilaterally Neck Thyroid: Thyroid normal Lymphatic: no lymphadenopathy noted Resp Auscultation: clear to auscultation bilaterally Cardio Rate: regular rate Rhythm: regular rhythm Heart sounds: S1 normal heart sound present and S2 normal heart sound present Skin General skin exam: no rashes or lesions noted Neuro General: patient oriented x3, gait normal and no focal motor deficits Extrem Other: There is soft tissue swelling noted over the left medial malleolus and on the dorsum of the left foot. It is tender to palpation. Full range of motion however there is discomfort. No laxity of joint noted. There is increased warmth when compared to the right. Vibratory and monofilament sensation intact. DP pulses 2+ bilaterally. The calf is nontender. No lower leg pain. Assessment & Plan Assessment & Plan (1) Left ankle pain: Code(s): M25.572 - Pain in left ankle and joints of left foot Qualifiers: Chronicity: acute Qualified Code(s): M25.572 - Pain in left ankle and joints of left foot Plan: Acute on chronic pain and following with meals. He does have an upcoming appointment with them. Reports having imaging on Sunday. He does not want to reimage this as it feels slightly better than it did Sunday. Continue naproxen. We will start Keflex out of abundance of caution. Uric acid and CBC ordered. (2) Cellulitis of left ankle: Code(s): L03.116 - Cellulitis of left lower limb Plan: As above. One-week follow up. Sooner if needed. (3) Resistant hypertension: Code(s): I1A.0 - Resistant hypertension Plan: Blood pressure WNL. Continue current regimen. Orders: Orders Complete Blood Count Auto Diff Today I1A.0 - Resistant hypertension, L03.116 - Cellulitis of left lower limb, M25.572 - Pain in left ankle and joints of left foot Uric Acid Today L03.116 - Cellulitis of left lower limb, M25.572 - Pain in left ankle and joints of left foot Medications: New cephalexin 500 mg PO QID 10 days 40 caps 0RF Coding Level of Care Code Est Pt Level 4 (42805) Diagnoses Acute left ankle pain M25.572 Chronicity: acute Cellulitis of left ankle L03.116 Resistant hypertension I1A.0
[2023-12-20 11:14] VITALS: BP 148/60; PULSE 60; TEMP 36.9; O2SAT 98; BMI 31.2
[2023-12-20 11:27] VITALS: BP 130/62
== END 2023-12-20 12:33 | disposition home or self-care (01) ==
PROVIDERS: PCP Family Medicine; Visit Provider Physician Assistant
DX: M25.572 Pain in left ankle and joints of left foot (principal); L03.116 Cellulitis of left lower limb; I1A.0 Resistant hypertension
CPT/HCPCS: 99214

== ENCOUNTER 2023-12-20 11:44 | Outpatient (REF) | payer OTHER, SELFPAY ==
[2023-12-20 15:38] LABS: Alanine Aminotransferase 26 U/L (0-40); Albumin Level 3.7 g/dL (3.5-5.0); Alkaline Phosphatase 145 U/L (39-117); Anion Gap 11 (12-20); Aspartate Amino Transferase 28 U/L (5-37); Bilirubin Total 0.3 mg/dL (0.0-1.0); Blood Urea Nitrogen 13 mg/dL (9-16); Calcium 9.5 mg/dL (8.4-10.2); Carbon Dioxide 28 mmol/L (22-29); Chloride 106 mmol/L (96-108); Estimated Glomerular Filt Rate > 60; Glucose Random 89 mg/dL (60-115); Potassium 3.1 mmol/L (3.3-5.1); Sodium 142 mmol/L (135-145); Total Protein 7.3 g/dL (6.5-8.0); Uric Acid 5.8 mg/dL (3.4-7.0)
[2023-12-20 15:55] LABS: TSH reflex Free T4 2.48 uIU/mL (0.32-4.0)
[2023-12-24 15:23] LABS: Metanephrine, Free 29 pg/mL (<=57); Normetanephrines, Free 125 pg/mL (<=148); Total Metanephrine, Free 154 pg/mL (<=205)
== END 2023-12-20 11:45 | disposition home or self-care (01) ==
LOC: HO.WFDLDS 11:44
PROVIDERS: Physician Assistant; Visit Provider Family Medicine
DX: Z00.00 Encounter for general adult medical examination without abnormal findings (principal); I1A.0 Resistant hypertension; M25.572 Pain in left ankle and joints of left foot; L03.116 Cellulitis of left lower limb
CPT/HCPCS: 36415; 80053; 83835; 84443; 84550

== ENCOUNTER → 2023-12-21 10:41 | Outpatient (REF) | payer OTHER, SELFPAY ==
--- NOTE | 2023-12-21 10:44 | CA_ITS ---
Transthoracic Echocardiogram Patient (Last, First, Middle): Pepe Melvin, Gender: Male Date of : 1965 Age: 58 Procedure Date: 12/21/2023 Procedure Type: Transthoracic Echocardiogram Location: OP Height: 177.8 cm Weight: 98.43 kg BSA: 2.16 m2 Heart Rate: bpm BP: 138 / 76 mmHg Head Of Partner Development: TO Referring MD: Tod Monte MD Symptoms: I1A.0 - Resistant hypertension Study Quality: Adequate Conclusions: - Normal left ventricular cavity size. There is mildly increased left ventricular wall thickness. The left ventricular systolic function is hyperdynamic. The visually estimated ejection fraction is >70%. - E/E prime ratio is >15, consistent with elevated filling pressures. - Normal right ventricular cavity size and systolic function. - Mild pulmonary hypertension is present. Findings Left Ventricle Normal left ventricular cavity size. There is mildly increased left ventricular wall thickness. The left ventricular systolic function is hyperdynamic. The visually estimated ejection fraction is >70%. There is no evidence of regional wall motion abnormalities. Abnormal diastolic function is noted. Spectral Doppler is indicative of a restrictive filling pattern. E/E prime ratio is >15, consistent with elevated filling pressures. Right Ventricle Normal right ventricular cavity size and systolic function. Atria The left atrium is mildly dilated. The right atrium is mildly dilated. Aortic Valve There is a normal trileaflet aortic valve. There is no aortic valve stenosis. There is no aortic valve regurgitation. Mitral Valve The mitral valve appears normal. There is mild mitral valve regurgitation. There is no mitral valve stenosis. Pulmonic Valve The pulmonic valve is normal. There is trace pulmonic valve regurgitation. Tricuspid Valve Normal tricuspid valve structure. There is mild tricuspid valve regurgitation. Normal right atrial pressure. Mild pulmonary hypertension is present. Great Vessels There is mild dilatation of the ascending aorta measuring 3.50 cm. The visualized portions of the pulmonary artery and branches are normal. Venous The inferior vena cava is normal in size and collapses greater than 50% with inspiration. Pericardium/Pleural There is no evidence of pericardial effusion. Measurements 2D Linear Measurements IVSd: 1.15 0.6-0.9/0.6-1.0 cm LVIDd: 5.45 3.9-5.3/4.2-5.9 cm LVIDd Index: 2.52 2.4-3.2/2.2-3.1 cm/m2 LVIDs: 3.23 2.0-3.6 cm LVPWd: 1.04 0.7-1.1 cm LA Diam: 4.10 2.7-3.8/3.0-4.0 cm LAIDs Index: 1.90 1.5-2.3 cm/m2 LV Mass: 295.43 67-162/88-224 g LV Mass Index: 136.77 43-95/49-115 g/m2 LVOT Diam: 2.20 3.0+(-)1.3 cm 2D Systolic Function EF 4C: 65.00 >55% EF 2C: 57.80 >55% EF BiP: 62.30 >55% Mitral Valve MV Pk E: 0.89 MV PK A: 0.26 MV Decel Time: 344.00 E/A: 3.40 E'Lateral: 7.40 E'Medial: 4.79 E/E' Med: 18.50 E/E' Lat: 12.00 PHT: 101.00 MVA PHT: 2.18 Decel Greene: 2.58 Aortic Valve AoV Pk Fede: 1.69 AoV Mn Fede: 1.15 AoV VTI: 0.37 AoV Pk Grad: 11.00 Aov Mn Grad: 6.00 JEANETTE Cont.VTI: 2.88 LVOT LVOT Pk Fede: 1.36 LVOT Mn Fede: 0.89 LVOT VTI: 0.28 LVOT Pk Grad: 7.00 LVOT Mn Grad: 4.00 LVOT Diam: 2.20 LVOT Area: 3.80 Diastolic Function MV Pk E: 0.89 MV Pk A: 0.26 E/A: 3.40 E'Medial: 4.79 E/E' Med: 18.50 E' Laterial: 7.40 E/E' Lat: 12.00 Right Ventricle TAPSE (mm): 23.00 TVS' Fede: 11.00 Tricuspid Valve TR Pk Fede: 3.22 TR Pk Grad: 41.00 RA Press: 3.00 RVSP: 44.00 Great Vessels Aorta Sinus of Valsalva: 3.15 2.0-3.5 cm Ao Asc: 3.50 2.1-3.4 cm Updated in Other Vendor System with Status of Final Ramana Blackwell MD electronically signed on 12/22/2023 11:31:33 PM with status of Final
== END ==
LOC: HO.CARD 10:41
PROVIDERS: PCP Family Medicine; Visit Provider Family Medicine
DX: I1A.0 Resistant hypertension (principal)
CPT/HCPCS: 93306

== ENCOUNTER → 2023-12-21 10:44 | Outpatient (BNV) | payer OTHER, SELFPAY | PROVIDERS: PCP Family Medicine; Visit Provider Internal Medicine Cardiovascular Disease | DX: I34.0 Nonrheumatic mitral (valve) insufficiency (principal); I36.1 Nonrheumatic tricuspid (valve) insufficiency; I1A.0 Resistant hypertension | CPT/HCPCS: 93306 ==

== ENCOUNTER 2024-02-08 09:28 | Outpatient (AMB) | payer OTHER, SELFPAY ==
--- NOTE | 2024-02-08 10:11 | A.OFFPC_ITS ---
Vital Signs 02/08/24 10:13 02/08/24 10:17 Height 5 ft 10 in Weight 214 lb BMI 30.7 BP 167/77 H 155/71 H Blood Pressure Location Lt brachial Position Sitting Respiration 16 Pulse 53 Pulse Source Pulse Oximeter Temp 98.1 F Temp Source Temporal Artery Scan Pulse Oximetry (%) 99 Oxygen Delivery Method Room Air Intake Visit Reasons: f/u hypertension Intake Note: follow up for HTN Allergies Sulfa (Sulfonamide Antibiotics) Allergy (Unknown, Verified 02/08/24 10:12) Itching Tobacco use date assessed: 12/03/23 Dental Screening Dental Screen Date: 10/24/23 HPI f/u hypertension HPI Details 58 y/o male presents to f/u hypertension . Blood pressure today 155/71. He is on amlodipine-olmesartan 10-40mg daily, metoprolol 25mg daily. Echocardiogram had showed mildly hyperdynamic LV with mild wall thickening and mild pulmonary hypertension. Had referred him to Cardiology. 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 Jewel De Oliveira, Madeline Magana, Kiel Pantoja and colleagues, with an educational den from [employer]. Review of Systems Const Denies chills, Denies fatigue, Denies fever(s), Denies headache(s) and Denies weakness ENT Denies dizziness and Denies headache(s) Card Denies dyspnea Resp Denies cough, Denies dyspnea, Denies wheezing and Denies other (shortness of breath) Musc Denies numbness and Denies tingling Neuro Denies dizziness, Denies headache(s), Denies numbness, Denies tingling and Denies weakness Psych Denies anxiety and Denies depression Endo Denies fatigue Aller/Immun Denies wheezing Physical exam (Primary Care) Vital Signs: Last Vital Signs Temp 98.1 F 02/08/24 10:13 Pulse 53 02/08/24 10:13 Resp 16 02/08/24 10:13 BP 155/71 H 02/08/24 10:17 Pulse Ox 99 02/08/24 10:13 Oxygen Delivery Method Room Air 02/08/24 10:13 BMI result Body Mass Index 30.7 Tobacco/Smoking Status: Tobacco use Status Tobacco use date assessed 12/03/23 02/08/24 10:17 Patient Tobacco Use Status Never used Tobacco 02/08/24 10:17 e-Cigarette/Vaping Use Never Used 02/08/24 10:17 Thrive Assessment: Date of Thrive Assessment Date Thrive assessed 10/24/23 02/08/24 10:17 Const General: well developed; No acute distress Nutritional Appearance: well nourished Orientation/consciousness: patient oriented x3 HENMT Head: Yes normocephalic and Yes atraumatic Eyes General: appearance normal, both eyes and all related structures Pupils: Equal, round and reactive pupils present EOM: EOMs intact bilaterally Resp Effort & Inspection: normal respiratory effort Auscultation: clear to auscultation bilaterally Cardio Rate: regular rate Rhythm: regular rhythm Heart sounds: S1 normal heart sound present, S2 normal heart sound present, no gallops, no murmurs and no rubs Neuro General: patient oriented x3 and gait normal Cranial nerves: Yes Equal, round and reactive pupils present Psych Affect: normal affect Assessment and Plan Assessment & Plan (1) Essential hypertension: Code(s): I10 - Essential (primary) hypertension Plan: Blood?pressure?remains?too?high. Recent renal?ultrasound did?not?show?any?renal?artery?stenosis?a nd?renal?function?is?normal. He?is?taking?his?medications?as?prescribed He?had?been?on?chlorthalidone?in?the?past Continue?current?medications?and?will?add?back?a?low?dose?of?chlorthalidone. He?check s?his?blood?pressures?at?home?and?will?let?me?know?if?he?is?having?any?further?p roblems Watch?salt/sodium?in?diet Medications: New chlorthalidone 25 mg PO DAILY 90 days 90 tabs 2RF Coding Level of Care Code Est Pt Level 3 (14735) Diagnoses Essential hypertension I10
[2024-02-08 10:13] VITALS: BP 167/77; PULSE 53; RESP 16; TEMP 36.7; O2SAT 99; BMI 30.7
[2024-02-08 10:17] VITALS: BP 155/71
== END 2024-02-08 10:53 | disposition home or self-care (01) ==
PROVIDERS: PCP Family Medicine; Visit Provider Family Medicine
DX: I10 Essential (primary) hypertension (principal)
CPT/HCPCS: 99213

== ENCOUNTER 2024-02-21 08:34 | Outpatient (AMB) | payer OTHER, SELFPAY ==
--- NOTE | 2024-02-21 09:28 | A.OFFVIS_ITS ---
Intake Visit Reasons: 1y/US (set) PSA?? 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 I reviewed renal ultrasound with doppler December, kidneys within normal limits, no evidence to suggest renal artery stenosis.. The patient states he is voiding without difficulty, denies irritative voiding symptoms. Urinalysis microscopic hematuria, 2+ proteinuria. We will refer to Nephrology. PSA lab test not completed. PSA screening. Review of charts: 02/19/2023?He is followed today for 10/week urine cytology. He was last seen by me on 12/11/2022 for a Cystoscopy procedure. Cystoscopy findings-- no suspiciousl bladder lesions visualized.? CT urogram, and repeat urine cytology was ordered at that time. The patient was advised to follow-up after 2 months at that time. He denies any trouble with urination. He has been taking amlodipine 10 mg for blood pressure. I reviewed the urogram CT results from 02/13/2023 revealed unremarkable kidneys. I reviewed the pathology report results from 12/14/2022 revealed negative for high-grade urothelial carcinoma. 02/19/2023: Evaluation today?UA?Leukocytes: 15 Wilmer; blood: 10 Juan. 12/11/22--?The patient denies history of smoking. He was previously evaluated on 10/26/22 for abnormal urine cytology.? The urine cytology test was done during screening visit with his PCP. Urine cytology results reviewed?collected 08/26/22--Rare atypical urothelial cells. The patient denies gross hematuria. He states he drinks adequate amount of water daily also drinks tea. Denies drinking sodas. He voids frequently due to fluid intake. PSA results reviewed--05/19/2022-- 0.39. AUA symptom score-- 7. The urine was sent for bladder fish cancer test. The lab called to inform us that there were not enough cells in the urine. So, the test could not be completed.? Evaluation today-- blood: 10 Juan/uL, leukcoytes: negative. Cystoscopy findings-- no suspiciousl bladder lesions visualized.? 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 Current occupational exposures/hazards: No Cognitive needs: No Hearing needs: No Vision needs: No Review of Systems Const All systems reviewed & are unremarkable except as noted in HPI and below Reports no additional complaints Eyes Reports no additional complaints ENT Reports no additional complaints Card Reports no additional complaints Resp Reports no additional complaints GI Reports no additional complaints Reports as per HPI Musc Reports no additional complaints Skin/Breast Reports system reviewed and no additional complaints, except as documented Neuro Reports no additional complaints Psych Reports no additional complaints Endo Reports no additional complaints Paulie/Lymph Reports no additional complaints Aller/Immun Reports no additional complaints Results AMB Urinalysis, Automated UA Leukoctes 0 Wilmer/uL Last Edit by AUSTIN Andre on 02/21/24 09:38 UA Nitrite Negative Last Edit by AUSTIN Andre on 02/21/24 09:38 UA Urobilinogen 0.2 mg/dL Last Edit by AUSTIN Andre on 02/21/24 09:3 8 UA Protein 100 mg/dL Last Edit by AUSTIN Andre on 02/21/24 09:38 UA pH 6.0 Last Edit by AUSTIN Andre on 02/21/24 09:38 UA Blood 25 Juan/uL Last Edit by AUSTIN Andre on 02/21/24 09:38 UA Specific [place] 1.025 Last Edit by AUSTIN Andre on 02/21/24 09: 38 UA Ketone Negative Last Edit by AUSTIN Andre on 02/21/24 09:38 UA Bilirubin 0 mg/dL Last Edit by AUSTIN Andre on 02/21/24 09:38 UA Glucose 0 mg/dL Last Edit by AUSTIN Andre on 02/21/24 09:38 Results Reviewed Results Reviewed: Laboratory Last Values Urine pH (Auto) 6.0 02/21/24 09:37 Specific [place] (Auto) 1.025 02/21/24 09:37 Urine Protein (Auto) 100 mg/dL 02/21/24 09:37 Glucose (UA)(Auto) 0 mg/dL 02/21/24 09:37 Urine Ketones (Auto) Negative 02/21/24 09:37 Urine Blood (Auto) 25 Juan/uL 02/21/24 09:37 Urine Nitrite (Auto) Negative 02/21/24 09:37 Urine Bilirubin (Auto) 0 mg/dL 02/21/24 09:37 Urine Urobilinogen (Auto) 0.2 mg/dL 02/21/24 09:37 Leukocyte Esterase (Auto) 0 Wilmer/uL 02/21/24 09:37 Date of Service: 12/14/23 ULTRASOUND OF KIDNEYS WITH RENAL ARTERY DOPPLER CLINICAL INFORMATION: Hypertension. COMPARISON: CT urogram 02/13/2023. TECHNIQUE: Ultrasound of the kidneys was performed along with color flow Doppler imaging and velocity measurements in the proximal mid and distal renal arteries. Aortic velocities were measured and renal/aortic ratios were calculated. Segmental resistive indices were calculated bilaterally. The renal veins were examined for patency. FINDINGS: The kidneys appeared unremarkable with the right kidney measuring 11.2 x 4.9 x 6.1 cm and the left kidney measuring 10.8 x 6.0 x 8.0 cm. No renal masses, renal stones or hydronephrosis is seen. Renal cortical thickness appears normal. Velocity measurements in the proximal mid and distal renal arteries are normal. Velocity in the aorta is over 100 cm/s at 132 cm/s and therefore cannot be used to calculate renal aortic ratios. Segmental resistive indices were calculated and were all normal. The renal veins are patent. The bladder was not examined. IMPRESSION: No evidence to suggest renal artery stenosis. Date of Service: 02/13/23 EXAMINATION: CT ABDOMEN AND PELVIS WITHOUT AND WITH CONTRAST?? CLINICAL INFORMATION: Other abnormal findings on cytologic and Histological exam? COMPARISON: None available.? ?? FINDINGS: LUNG BASES: Small bilateral pleural effusions. Right lower lobe peripheral or subpleural nodular densities, question representing subpleural lymph nodes versus subsegmental atelectasis. LIVER, GALLBLADDER, AND BILIARY TREE: The liver is normal in size, shape, and attenuation. No focal hepatic lesion or biliary ductal dilatation is present. The gallbladder is unremarkable with no evidence of radiopaque gallstones, gallbladder wall thickening, or obvious pericholecystic inflammatory changes.?? PANCREAS: Unremarkable.?? SPLEEN: Unremarkable.?? ADRENAL GLANDS: Unremarkable.?? KIDNEYS AND URETERS: The kidneys are normal in size, shape, and attenuation. No hydronephrosis, hydroureter, or calculi seen. No perinephric stranding. 3 cm left renal cyst. No imaging follow-up recommended. BLADDER: Not optimally distended and not well evaluated. GASTROINTESTINAL TRACT: Mild diverticulosis of the colon. No evidence of diverticulitis. The small and large bowel are otherwise unremarkable. The appendix is unremarkable.?? ABDOMINAL WALL: No significant hernia is appreciated.?? LYMPH NODES: Normal. VASCULAR: Unremarkable. PELVIC VISCERA: The prostate gland does not appear enlarged.?? OSSEUS STRUCTURES: Degenerative changes of the spine. IMPRESSION: Unremarkable kidneys. Bladder not optimally distended and not well evaluated. Mild diverticulosis. Small bilateral pleural effusions. Question peripheral or subpleural posterior right lower lobe lower lobe lymph nodes versus subsegmental atelectasis. Collected: 12/11/22 Location: [facility] Received: 12/14/22 Diagnosis Urine: Negative for high-grade urothelial carcinoma. See comment. COMMENT: Cellular specimen consisting of single urothelial cells, some with degenerative changes, red blood cells and chronic inflammatory cells. Clinical History Microscopic hematuria, abnormal urine cytology Material Received Urine Gross Description 40 cc clear yellow fluid Assessment & Plan Assessment & Plan (1) Screening for prostate cancer: Code(s): Z12.5 - Encounter for screening for malignant neoplasm of prostate Category: Medical (2) Proteinuria: Code(s): R80.9 - Proteinuria, unspecified Category: Medical (3) Hematuria: Code(s): R31.9 - Hematuria, unspecified Category: Medical (4) Renal cyst, left: Code(s): N28.1 - Cyst of kidney, acquired Category: Medical Plan Will monitor urinalysis. PSA screening, refer to Nephrology for proteinuria. Orders: Orders AMB Urinalysis Automated Today Z13.9 - Encounter for screening, unspecified PSA,Total (Free>4and<10) Today Z12.5 - Encounter for screening for malignant neoplasm of prostate Referrals Nephrology Referral R80.9 - Proteinuria, unspecified Patient Instructions: The patient had an opportunity to ask questions regarding treatment plan. The patient expressed understanding and agreement with the above treatment plan. The patient is aware they should contact our office by phone for worsening of their current condition or the appearance of new symptoms. Compliance is encouraged with any medications and followup testing that is ordered. It is a privilege to be allowed the opportunity to participate in the urologic care of your patient. If you have any questions or concerns regarding treatment for the above conditions please do not hesitate to contact me. The office telephone contact is [phone]. This note is constructed in part using voice recognition software. While every effort has been made to ensure accuracy food service helper errors may have been included. Yours sincerely, Brian Stephenson MD Coding Level of Care Code Est Pt Level 4 (62815) Diagnoses Screening for prostate cancer Z12.5 Proteinuria R80.9 Hematuria R31.9 Renal cyst, left N28.1
== END 2024-02-21 09:55 | disposition home or self-care (01) ==
PROVIDERS: PCP Family Medicine; Visit Provider Urology
DX: Z12.5 Encounter for screening for malignant neoplasm of prostate (principal); R80.9 Proteinuria, unspecified; R31.9 Hematuria, unspecified; N28.1 Cyst of kidney, acquired; Z13.9 Encounter for screening, unspecified
CPT/HCPCS: 99214

== ENCOUNTER → 2024-02-21 08:34 | Outpatient (BNVA) | payer OTHER, SELFPAY | PROVIDERS: PCP Family Medicine; Visit Provider Urology | DX: R31.9 Hematuria, unspecified (principal); R80.9 Proteinuria, unspecified; N28.1 Cyst of kidney, acquired | CPT/HCPCS: 81003 ==

== ENCOUNTER 2024-03-12 10:07 | Outpatient (AMB) | payer OTHER, SELFPAY ==
[2024-03-12 10:10] VITALS: BP 152/80; PULSE 52; O2SAT 100; BMI 30.8
--- NOTE | 2024-03-12 10:10 | HO.NEPHOV ---
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 He has been compliant with his medications. Recent potassium was 3.1. He is on chlorthalidone. 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 Current occupational exposures/hazards: No Cognitive needs: No Hearing needs: No Vision needs: No Review of Systems Const Denies fever(s) and Denies weight loss Card Denies chest pain Resp Denies cough and Denies hemoptysis GI Denies abdominal pain, Denies diarrhea and Denies nausea Musc Denies back pain Neuro Denies focal weakness Physical Exam Vital Signs: Last Vital Signs Pulse 52 03/12/24 10:10 BP 152/80 H 03/12/24 10:10 Pulse Ox 100 03/12/24 10:10 Oxygen Delivery Method Room Air 03/12/24 10:10 BMI result Body Mass Index 30.8 Const General: comfortable; No acute distress Orientation/consciousness: patient oriented x3 Eyes General: appearance normal, both eyes and all related structures Visual La: normal visual la by confrontation Neck Neck: Yes supple and Yes no JVD Resp Effort & Inspection: normal respiratory effort and respiratory effort not decreased Auscultation: rhonchi Cardio Palpation: no palpable S3 and no palpable S4 Heart sounds: no rubs GI Inspection: Yes normal to inspection Palpation (GI): Soft to palpation Percussion: Yes normal to percussion Auscultation: normal bowel sounds General: Yes no CVA tenderness Back/Spine/Pelvis Back: no CVA tenderness Skin General skin exam: no petechiae and no purpura Neuro General: patient oriented x3 and no focal motor deficits Extrem General: No clubbing and No edema Results Reviewed Nephrology Results: Sodium 140 mmol/L (135-145) 03/12/24 Potassium 2.7 mmol/L (3.3-5.1) L* 03/12/24 Chloride 100 mmol/L (96-108) 03/12/24 Carbon Dioxide 31 mmol/L (22-29) H 03/12/24 BUN 13 mg/dL (9-16) 03/12/24 Creatinine 1.13 mg/dL (0.5-1.4) 03/12/24 Calcium 9.4 mg/dL (8.4-10.2) 03/12/24 Urine Protein 30 (1+) mg/dL (Neg-Trace) H 03/12/24 Urine Creatinine 152.48 mg/dL 03/12/24 Renal US 12/14/23 Assessment & Plan Assessment & Plan (1) Hypertension: Code(s): I10 - Essential (primary) hypertension Category: Medical (2) Proteinuria: Code(s): R80.9 - Proteinuria, unspecified Category: Medical Plan 58-year-old man with longstanding hypertension with proteinuria. First step is to quantify proteinuria Ordered protein creatinine ratio and other workup. He has mild hypokalemia this may be related to the use of chlorthalidone. I will recheck the labs today and supplement potassium as needed. Goal is to maintain blood pressure less than 130/80. Once the workup is completed I will not adjust medications We might need to discontinue spironolactone due to hyperkalemia and replace with alternate agents. Returned to office in next few weeks I will keep you updated Orders: Orders Total Protein Urine Random 03/12/24 I10 - Essential (primary) hypertension, R80.9 - Proteinuria, unspecified UA and rflx microscopic 03/12/24 I10 - Essential (primary) hypertension, R80.9 - Proteinuria, unspecified Creatinine Urine 03/12/24 I10 - Essential (primary) hypertension, R80.9 - Proteinuria, unspecified Uric Acid 03/12/24 I10 - Essential (primary) hypertension, R80.9 - Proteinuria, unspecified Basic Metabolic Panel 03/12/24 I10 - Essential (primary) hypertension, R80.9 - Proteinuria, unspecified Medications: New potassium chloride ER 8 mEq PO DAILY 30 caps 3RF Coding Level of Care Code New Pt Level 4 (53778) Diagnoses Hypertension I10 Proteinuria R80.9
== END 2024-03-12 10:36 | disposition home or self-care (01) ==
PROVIDERS: PCP Family Medicine; Referring Provider Urology; Visit Provider Internal Medicine Hypertension Specialist
DX: I10 Essential (primary) hypertension (principal); R80.9 Proteinuria, unspecified
CPT/HCPCS: 99204

== ENCOUNTER → 2024-03-12 10:07 | Outpatient (BNVA) | payer OTHER, SELFPAY | PROVIDERS: PCP Family Medicine; Referring Provider Urology; Visit Provider Internal Medicine Hypertension Specialist ==

== ENCOUNTER 2024-03-12 10:37 | Outpatient (REF) | payer OTHER, SELFPAY ==
[2024-03-12 18:32] LABS: Appearance Urine Clear; Color Urine Yellow; Glucose Urine UA Negative (Negative); Leukocyte Esterase Urine Negative (Negative); Nitrite Urine Negative (Negative); PH 5.5 (5.0-9.0); Specific Gravity - Urine 1.015 (1.005-1.025); UMIC TRIGGER UA YES; Urine Blood Negative (Negative); Urine Ketones Negative (Negative); Urine Protein 30 (1+) mg/dL (Neg-Trace)
[2024-03-12 18:44] LABS: Creatinine Urine 152.48 mg/dL; Total Protein Urine Random 38 mg/dL (<12)
[2024-03-12 18:45] LABS: Anion Gap 12 (12-20); Blood Urea Nitrogen 13 mg/dL (9-16); Calcium 9.4 mg/dL (8.4-10.2); Carbon Dioxide 31 mmol/L (22-29); Chloride 100 mmol/L (96-108); Estimated Glomerular Filt Rate > 60; Glucose Random 111 mg/dL (60-115); Potassium 2.7 mmol/L (3.3-5.1); Sodium 140 mmol/L (135-145); Uric Acid 8.1 mg/dL (3.4-7.0)
[2024-03-12 18:54] LABS: Bacteria Urine None Seen (None Seen); RBC Urine 0-2 /HPF (0-2); Squamous Epithelial Cell Urine 0-2 /HPF (0-2); WBC Urine 0-5 /HPF (0-5)
== END 2024-03-12 10:38 | disposition home or self-care (01) ==
LOC: HO.HKASLDS 10:37
PROVIDERS: Visit Provider Internal Medicine Hypertension Specialist
DX: I10 Essential (primary) hypertension (principal); R80.9 Proteinuria, unspecified
CPT/HCPCS: 36415; 80048; 81001; 82570; 84156; 84550

== ENCOUNTER 2024-04-02 08:27 | Outpatient (AMB) | payer OTHER, SELFPAY ==
--- NOTE | 2024-04-02 08:33 | HO.NEPHOV_ITS ---
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 He had persistent hypokalemia while on chlorthalidone. Potassium was 2.7. He was given potassium supplementation. At present he has no new complaints. 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 Current occupational exposures/hazards: No Cognitive needs: No Hearing needs: No Vision needs: No Physical Exam Vital Signs: Last Vital Signs Pulse 52 04/02/24 08:34 BP 150/76 H 04/02/24 08:34 Pulse Ox 99 04/02/24 08:34 Oxygen Delivery Method Room Air 04/02/24 08:34 BMI result Body Mass Index 30.8 Results Reviewed Nephrology Results: Sodium 140 mmol/L (135-145) 03/12/24 Potassium 2.7 mmol/L (3.3-5.1) L* 03/12/24 Chloride 100 mmol/L (96-108) 03/12/24 Carbon Dioxide 31 mmol/L (22-29) H 03/12/24 BUN 13 mg/dL (9-16) 03/12/24 Creatinine 1.13 mg/dL (0.5-1.4) 03/12/24 Calcium 9.4 mg/dL (8.4-10.2) 03/12/24 Urine Protein 30 (1+) mg/dL (Neg-Trace) H 03/12/24 Urine Creatinine 152.48 mg/dL 03/12/24 Renal US 12/14/23 Assessment & Plan Assessment & Plan (1) Hypertension: Code(s): I10 - Essential (primary) hypertension Category: Medical (2) Proteinuria: Code(s): R80.9 - Proteinuria, unspecified Category: Medical Plan 58-year-old man with longstanding hypertension with proteinuria. Urine protein creatinine ratio was 0.25. Persistent hypokalemia this may be related to the use of chlorthalidone. No alkalosis. Plan Discontinue chlorthalidone and potassium chloride. Start spironolactone 12.5 mg a day. Encouraged to monitor blood pressure at home. Based on home blood pressure readings I will gradually titrate the spironolactone. Check renal panel in 1 week. Proteinuria most likely due to underlying hypertensive kidney disease. Would maximize a MICAELA inhibition. Continue with olmesartan. Coding Level of Care Code Est Pt Level 4 (16348) Diagnoses Hypertension I10 Proteinuria R80.9
[2024-04-02 08:34] VITALS: BP 150/76; PULSE 52; O2SAT 99; BMI 30.8
[2024-04-02 08:55] VITALS: BP 140/80
== END 2024-04-02 08:52 | disposition home or self-care (01) ==
PROVIDERS: PCP Family Medicine; Visit Provider Internal Medicine Hypertension Specialist
DX: I10 Essential (primary) hypertension (principal); R80.9 Proteinuria, unspecified
CPT/HCPCS: 99214

== ENCOUNTER → 2024-04-02 08:27 | Outpatient (BNVA) | payer OTHER, SELFPAY | PROVIDERS: PCP Family Medicine; Visit Provider Internal Medicine Hypertension Specialist | DX: I10 Essential (primary) hypertension (principal); R80.9 Proteinuria, unspecified ==

== ENCOUNTER 2024-04-03 12:35 | Outpatient (AMB) | payer OTHER, SELFPAY ==
[2024-04-03 12:50] VITALS: BP 120/64; PULSE 52; BMI 30.7
--- NOTE | 2024-04-03 12:50 | MHC.OFFVIS ---
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 Patient has longstanding hypertension but not well controlled but today's blood pressure is normal. He also has hypokalemia of unknown nature. Thought to be from chlorthalidone. Currently, on a combination of amlodipine, olmesartan, metoprolol and spironolactone. He was on chlorthalidone but that has now been stopped as of yesterday. Apparently he was also asked to stop the potassium. Any case, he does not really have any clear-cut cardiac symptoms. No previous history of any coronary disease or myocardial infarction or cardiomyopathy. [facility] Family History (Updated 04/03/24 @ 13:09 by Catracho Siddiqui MD) Father No problems noted. Mother No problems noted. 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 Current occupational exposures/hazards: No Cognitive needs: No Hearing needs: No Vision needs: No Review of Systems Const Denies chills, Denies fatigue, Denies fever(s), Denies frequent falls, Denies weakness, Denies weight gain and Denies weight loss ENT Denies dizziness Card Denies chest pain, Denies leg edema, Denies lightheadedness, Denies palpitations, Denies dyspnea, Denies dyspnea on exertion and Denies orthopnea Resp Denies cough, Denies dyspnea and Denies dyspnea on exertion GI Denies bloating and Denies change in bowel habits Musc Denies muscle weakness, Denies numbness and Denies tingling Neuro Denies dizziness, Denies frequent falls, Denies numbness, Denies tingling and Denies weakness Endo Denies fatigue and Denies palpitations Physical Exam Vital Signs: Last Vital Signs Pulse 52 04/03/24 12:50 BP 120/64 04/03/24 12:50 BMI result Body Mass Index 30.7 Const General: comfortable and no acute distress Orientation/consciousness: patient oriented x3 HEENT Other: Unremarkable Head: Yes normal to inspection Neck Neck: Yes normal visual inspection Chest Chest palpation & inspection: normal inspection of the chest Resp Auscultation: clear to auscultation bilaterally Cardio Palpation: normal PMI Heart sounds: S1 normal heart sound present, S2 normal heart sound present, no gallops, no murmurs and no rubs GI Palpation (GI): Soft to palpation Back/Spine/Pelvis Other: unremarkable Skin General skin exam: no rashes or lesions noted Neuro General: patient oriented x3 Extrem General: Yes normal to inspection Psych Mental Status: mental status grossly normal Office Procedures EKG Details: EKG with underlying sinus bradycardia at 52/Min; left ventricular hypertrophy with repolarization changes; [place] [id number], Complete Assessment & Plan Assessment & Plan (1) Resistant hypertension: Code(s): I1A.0 - Resistant hypertension Category: Medical Plan Labs reviewed from yesterday. His hypokalemia was long-term and goes back many years. Renal function itself is stable. Echocardiogram with hyperdynamic LVEF, mild left ventricular hypertrophy and advanced diastolic dysfunction with mild pulmonary hypertension. Suspect echocardiographic findings are related to poorly controlled hypertension. With regard to blood pressure medications, no new changes made today and he may remain on amlodipine/olmesartan/metoprolol/spironolactone. Metoprolol is not a good antihypertensive agent but okay to continue to prevent any rebound. He asked me about discontinuing potassium as an numbers are quite low and I advised him to continue for now till the repeat labs next week. He will however stopped the chlorthalidone. We will also check aldosterone/renin ratio look for any adrenal issues considering the chronic hypokalemia. Pheochromocytoma screen is negative. Due to long history of poorly controlled hypertension as well as abnormal EKG, we will get coronary CTA. Discussed about this with patient and he agrees. Follow-up in 3 months. In the interim, he will call with concerns. Orders: Orders Aldost/Renin Today I10 - Essential (primary) hypertension CT Cardiac Coronary Angio Today I10 - Essential (primary) hypertension, I25.10 - Atherosclerotic heart disease of [place] coronary artery without angina pectoris Coding Level of Care Code Est Pt Level 4 (90917) Diagnoses Resistant hypertension I1A.0 CPT Codes EKG - CPT: 85579-[id number], Complete ([id number])
== END 2024-04-03 13:22 | disposition home or self-care (01) ==
PROVIDERS: PCP Family Medicine; Visit Provider Internal Medicine
DX: I1A.0 Resistant hypertension (principal)
CPT/HCPCS: 93010; 99214

== ENCOUNTER → 2024-04-03 12:35 | Outpatient (BNVA) | payer OTHER, SELFPAY | PROVIDERS: PCP Family Medicine; Visit Provider Internal Medicine | DX: I1A.0 Resistant hypertension (principal); E87.6 Hypokalemia; Z79.899 Other long term (current) drug therapy | CPT/HCPCS: 93005 ==

== ENCOUNTER 2024-04-09 08:50 | Outpatient (REF) | payer OTHER, SELFPAY ==
[2024-04-09 09:55] LABS: Anion Gap 13 (12-20); Blood Urea Nitrogen 13 mg/dL (9-16); Carbon Dioxide 27 mmol/L (22-29); Chloride 105 mmol/L (96-108); Estimated Glomerular Filt Rate 59; Glucose Random 102 mg/dL (60-115); Potassium 3.4 mmol/L (3.3-5.1); Sodium 142 mmol/L (135-145)
== END 2024-04-09 08:51 | disposition home or self-care (01) ==
LOC: HO.LAB 08:50
PROVIDERS: Absent Provider Internal Medicine; PCP Family Medicine; Visit Provider Internal Medicine Hypertension Specialist
DX: I10 Essential (primary) hypertension (principal)
CPT/HCPCS: 36415; 80048

== ENCOUNTER 2024-04-25 09:06 | Outpatient (AMB) | payer OTHER, SELFPAY ==
--- NOTE | 2024-04-25 09:17 | A.OFFPC_ITS ---
Vital Signs 04/25/24 09:19 04/25/24 09:43 Height 5 ft 10 in Weight 218 lb 2 oz BMI 31.3 BP 169/77 H 145/68 H Blood Pressure Location Rt brachial Lt brachial Position Sitting Sitting Respiration 16 Pulse 55 Pulse Source Pulse Oximeter Temp 97.2 F Temp Source Temporal Artery Scan Pulse Oximetry (%) 100 Oxygen Delivery Method Room Air Intake Visit Reasons: f/u hypertension Intake Note: f/u for HTN Allergies Sulfa (Sulfonamide Antibiotics) Allergy (Unknown, Verified 04/25/24 09:18) Itching Tobacco use date assessed: 12/03/23 Dental Screening Dental Screen Date: 10/24/23 HPI f/u hypertension HPI Details 58 y/o male presents to f/u hypertension . Blood pressure today 145/68, 55p. He is on amlodipine-olmesartan 10-40 mg daily, metoprolol 25mg daily, spironolactone 12.5mg. Potassium levels had been low at 2.7 mmol/L 03/12/24. Increased to 3.4 on 04/09/24. Had seen nephrology, discontinued his chlorthalidone and started him on spironolactone. HPI Comments History of Present Illness Details Documentation assistance for Tod Monte MD, was provided by John Simeon, Doughnut Machine Operator on 04/25/2024 at 9:59 AM EST. I, Dr. Monte, have read, observed, and verified documentation. [facility] Family History (Updated 04/03/24 @ 13:09 by Catracho Siddiqui MD) Father No problems noted. Mother No problems noted. 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 1. Little interest or pleasure in doing things: not at all 2. Feeling down, depressed, or hopeless: not at all 3. Trouble falling or staying asleep, or sleeping too much: not at all 4. Feeling tired or having little energy: not at all 5. Poor appetite or overeating: not at all 6. Feeling bad about yourself - or that you are a failure or have let yourself or your family down: not at all 7. Trouble concentrating on things, such as reading the newspaper or watching television: not at all 8. Moving or speaking so slowly that other people could have noticed. Or the opposite - being so fidgety or restless that you have been moving around a lot more than usual: not at all 9. Thoughts that you would be better off or of hurting yourself in some way: not at all Total score: 0 Source: Developed by Drs. Jewel De Oliveira, Madeline Magana, Kiel Pantoja and colleagues, with an educational den from [employer]. Thrive Questionnaire Date Thrive assessed: 10/24/23 I am a: Patient What is your living situation today?: I have a steady place to live Within the past 12 months, did the food you bought not last and you didn't have the money to get more?: Never true Within the past 12 months, did you worry whether your food would run out before you got money to buy more?: Never true Do you have trouble paying for medicines?: No Do you have trouble getting transportation to medical appointments?: No Do you have trouble paying your heating and electricity bill?: No Do you have trouble taking care of your child, family member or friend?: No Do you have trouble with day-to-day activities such as bathing, preparing meals, shopping, managing finances, etc.?: No Are you currently unemployed and looking for a job?: No Are you interested in more education?: No Please select the resources that you would like help with: None Currently or been in a relationship where the following occur: No concerns reported THRIVE Score: 0 AUDIT C Alcohol Use Questionnaire (AUDIT-C) 1. How often do you have a drink containing alcohol?: Never Total Score: 0 ASHKAN-7 AMB Questionnaire ASHKAN-7 Date ASHKAN - 7 assessed: 10/24/23 Feeling nervous, anxious, or on edge: 0 = Not at all Not being able to stop or control worryin = Not at all Worrying too much about different things: 0 = Not at all Trouble relaxin = Not at all Being so restless that it is hard to sit still: 0 = Not at all Becoming easily annoyed or irritable: 0 = Not at all Feeling afraid as if something awful might happen: 0 = Not at all Total ASHKAN-7 score (0-4 normal; 5-9 mild; 10-14 moderate; 15-21 severe): 0 Source: Developed by Drs. Jewel De Oliveira, Madeline Magana, Kiel Pantoja and colleagues, with an educational den from [employer]. Review of Systems Const Denies chills, Denies fatigue, Denies fever(s), Denies headache(s) and Denies weakness ENT Denies dizziness and Denies headache(s) Card Denies dyspnea Resp Denies cough, Denies dyspnea, Denies wheezing and Denies other (shortness of breath) Musc Denies numbness and Denies tingling Neuro Denies dizziness, Denies headache(s), Denies numbness, Denies tingling and Denies weakness Psych Denies anxiety and Denies depression Endo Denies fatigue Aller/Immun Denies wheezing Physical exam (Primary Care) Vital Signs: Last Vital Signs Temp 97.2 F 04/25/24 09:19 Pulse 55 04/25/24 09:19 Resp 16 04/25/24 09:19 BP 145/68 H 04/25/24 09:43 Pulse Ox 100 04/25/24 09:19 Oxygen Delivery Method Room Air 04/25/24 09:19 BMI result Body Mass Index 31.3 Tobacco/Smoking Status: Tobacco use Status Tobacco use date assessed 12/03/23 04/25/24 09:24 Patient Tobacco Use Status Never used Tobacco 04/25/24 09:24 e-Cigarette/Vaping Use Never Used 04/25/24 09:24 PHQ-9: PHQ-9 Score PHQ-9: Total score 0 04/25/24 09:56 Thrive Assessment: Date of Thrive Assessment Date Thrive assessed 10/24/23 04/25/24 09:24 Currently or been in a relationship where the following occur: No concerns reported Const General: well developed; No acute distress Nutritional Appearance: well nourished Orientation/consciousness: patient oriented x3 HENMT Head: Yes normocephalic and Yes atraumatic Eyes General: appearance normal, both eyes and all related structures Pupils: Equal, round and reactive pupils present EOM: EOMs intact bilaterally Resp Effort & Inspection: normal respiratory effort Auscultation: clear to auscultation bilaterally Cardio Rate: regular rate Rhythm: regular rhythm Heart sounds: S1 normal heart sound present, S2 normal heart sound present, no gallops, no murmurs and no rubs Neuro General: patient oriented x3 and gait normal Cranial nerves: Yes Equal, round and reactive pupils present Psych Affect: normal affect Coding Level of Care Code Est Pt Level 3 (65798) Diagnoses Hypertension I10 Hypokalemia E87.6 Assessment & Plan Assessment & Plan (1) Hypertension: Code(s): I10 - Essential (primary) hypertension Category: Medical Plan: Blood?pressure?is?improving?on?current?medication?regimen?including?amlodipine- olmesartan,?metoprolol?and?spironolactone. Still?elevated?however He?also?has?had?issues?with?hypokalemia?though?at?most?recent?check?this?was?wit hin?normal?range.??He?would?like?to?discontinue?potassium?supplementation?but?I? advised?him?to?continue?this?for?now. He?is?on?olmesartan?and?I?have?increased?his?spironolactone,?each?of?which?can?h elp?keep?his?potassium?up. Rechecking?his?BMP?today. Follow-up?with?Cardiology?and?he?has?a?CTA?in?Februa ry.??Cardiology?is?also?checking?renin/aldosterone. Follow-up?with?nephrology?as?recommended (2) Hypokalemia: Code(s): E87.6 - Hypokalemia Category: Medical Plan: As?above Orders: Orders Basic Metabolic Panel Today I10 - Essential (primary) hypertension, Z00.00 - Encounter for general adult medical examination without abnormal findings Microalbumin, Random (w Creat) Today I10 - Essential (primary) hypertension Medications: Changed From spironolactone 12.5 mg (1/2 x 25 mg) PO DAILY 30 tabs 2RF To spironolactone 25 mg PO DAILY 90 days 90 tabs 2RF
[2024-04-25 09:19] VITALS: BP 169/77; PULSE 55; RESP 16; TEMP 36.2; O2SAT 100; BMI 31.3
[2024-04-25 09:43] VITALS: BP 145/68
== END 2024-04-25 10:11 | disposition home or self-care (01) ==
PROVIDERS: PCP Family Medicine; Visit Provider Family Medicine
DX: I10 Essential (primary) hypertension (principal); E87.6 Hypokalemia

== ENCOUNTER → 2024-04-25 09:06 | Outpatient (BNVA) | payer OTHER, SELFPAY | PROVIDERS: PCP Family Medicine; Visit Provider Family Medicine ==

== ENCOUNTER 2024-04-25 10:33 | Outpatient (REF) | payer OTHER, SELFPAY ==
[2024-04-25 14:27] LABS: Anion Gap 8 (12-20); Blood Urea Nitrogen 10 mg/dL (9-16); Calcium 9.3 mg/dL (8.4-10.2); Carbon Dioxide 30 mmol/L (22-29); Chloride 104 mmol/L (96-108); Estimated Glomerular Filt Rate > 60; Glucose Random 88 mg/dL (60-115); Potassium 3.9 mmol/L (3.3-5.1); Sodium 138 mmol/L (135-145)
[2024-04-25 14:44] LABS: PSA,Total (Free>4and<10) 0.59 ng/mL (0.00-4.00)
[2024-04-25 18:24] LABS: Creatinine Urine 192.68 mg/dL
[2024-04-25 18:40] LABS: Microalbum/Creatinine Ratio Ur 278.1 ug/mg cr (<30)
== END 2024-04-25 10:34 | disposition home or self-care (01) ==
LOC: HO.WFDLDS 10:33
PROVIDERS: Referring Provider Urology; Visit Provider Family Medicine
DX: Z00.00 Encounter for general adult medical examination without abnormal findings (principal); I10 Essential (primary) hypertension; Z12.5 Encounter for screening for malignant neoplasm of prostate
CPT/HCPCS: 36415; 80048; 82043; 82570; 84153

== ENCOUNTER 2024-04-30 08:22 | Outpatient (AMB) | payer OTHER, SELFPAY ==
--- NOTE | 2024-04-30 08:37 | HO.NEPHOV ---
Vital Signs 04/30/24 08:39 Height 5 ft 10 in Weight 217 lb BMI 31.1 BP 146/80 H Blood Pressure Location Lt brachial Position Sitting Pulse 57 Pulse Source Pulse Oximeter Pulse Oximetry (%) 99 Oxygen Delivery Method Room Air Intake Visit Reasons: 4-5wk follow up/ LVM It Security Consultant Required: No Accompanied by: Self / Same As Patient Allergies Sulfa (Sulfonamide Antibiotics) Allergy (Unknown, Verified 04/30/24 08:40) Itching Medication List - Last Reconciled 04/30/24 by Augusto Lovett MD allopurinol 200 mg (2 x 100 mg) PO DAILY 90 days amlodipine-olmesartan 10-40 mg 1 tab PO DAILY 90 days metoprolol succinate ER 25 mg PO DAILY 90 days potassium chloride ER 8 mEq PO DAILY spironolactone 25 mg PO DAILY 90 days HPI Comments Details: 58-year-old man with hypertension and proteinuria. He had persistent hypokalemia while on chlorthalidone. Potassium was 2.7. He was given potassium supplementation. At present he has no new complaints. 04/30/2024. Events noted. He is currently on potassium supplementation along with spironolactone. Cardiac workup in progress. Despite spironolactone and potassium supplementation serum potassium is relatively low around 3.9 mg/dL. He continues to have mild alkalosis with a total CO2 of 30 which is spontaneous. This raises the suspicion for hyperaldosteronism. [facility] Family History Father No problems noted. Mother No problems noted. 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 Current occupational exposures/hazards: No Cognitive needs: No Hearing needs: No Vision needs: No Physical Exam Vital Signs: Last Vital Signs Pulse 57 04/30/24 08:39 BP 146/80 H 04/30/24 08:39 Pulse Ox 99 04/30/24 08:39 Oxygen Delivery Method Room Air 04/30/24 08:39 BMI result Body Mass Index 31.1 Const General: comfortable; No acute distress Orientation/consciousness: patient oriented x3 Eyes General: appearance normal, both eyes and all related structures Visual La: normal visual la by confrontation Neck Neck: Yes supple and Yes no JVD Resp Effort & Inspection: normal respiratory effort and respiratory effort not decreased Auscultation: rhonchi Cardio Palpation: no palpable S3 and no palpable S4 Heart sounds: no rubs GI Inspection: Yes normal to inspection Palpation (GI): Soft to palpation Percussion: Yes normal to percussion Auscultation: normal bowel sounds General: Yes no CVA tenderness Back/Spine/Pelvis Back: no CVA tenderness Skin General skin exam: no petechiae and no purpura Neuro General: patient oriented x3 and no focal motor deficits Extrem General: No clubbing and No edema Results Reviewed Nephrology Results: Sodium 138 mmol/L (135-145) 04/25/24 Potassium 3.9 mmol/L (3.3-5.1) 04/25/24 Chloride 104 mmol/L (96-108) 04/25/24 Carbon Dioxide 30 mmol/L (22-29) H 04/25/24 BUN 10 mg/dL (9-16) 04/25/24 Creatinine 1.01 mg/dL (0.5-1.4) 04/25/24 Calcium 9.3 mg/dL (8.4-10.2) 04/25/24 Urine Protein 30 (1+) mg/dL (Neg-Trace) H 03/12/24 Urine Creatinine 192.68 mg/dL 04/25/24 Assessment & Plan Assessment & Plan (1) Hypertension: Code(s): I10 - Essential (primary) hypertension Category: Medical (2) Proteinuria: Code(s): R80.9 - Proteinuria, unspecified Category: Medical (3) Hypokalemia: Code(s): E87.6 - Hypokalemia Category: Medical Plan 58-year-old man with longstanding hypertension with proteinuria. Urine protein creatinine ratio was0.25. Most likely due to underlying hypertensive kidney disease. Pepe has hypokalemia which is currently unprovoked. Also has mild alkalosis without diuretics. This raises suspicion for hyperaldosteronism. Next step would be to check serum aldosterone and plasma renin activity along with PA/PRA ratio. However currently he is on spironolactone olmesartan and metoprolol which could all interfere with the lab testing. Plan is to stop spironolactone olmesartan potassium supplementation and metoprolol for 2 weeks. Check serum aldosterone and plasma renin activity after 2 weeks. Once the blood test is completed he can go back on these medications. In the interim. I will keep him on amlodipine 10 mg and clonidine 0.1 mg b.i.d. until the blood test is completed. I have given written instructions. Further workup will depend on the outcome of PA/PRA. Orders: Orders Aldosterone 2 Weeks E87.6 - Hypokalemia, I10 - Essential (primary) hypertension Aldost/Renin 2 Weeks E87.6 - Hypokalemia, I10 - Essential (primary) hypertension Cortisol, Free 2 Weeks E87.6 - Hypokalemia, I10 - Essential (primary) hypertension Renin 2 Weeks E87.6 - Hypokalemia, I10 - Essential (primary) hypertension Basic Metabolic Panel 2 Weeks E87.6 - Hypokalemia, I10 - Essential (primary) hypertension Medications: New clonidine HCl 0.1 mg PO BID 60 tabs 0RF amlodipine 10 mg PO DAILY 30 tabs 0RF Discontinued amlodipine-olmesartan 10-40 mg Discontinued Reason: Doctor's Order 1 tab PO DAILY 90 days 90 tabs 3RF metoprolol succinate ER Discontinued Reason: Doctor's Order 25 mg PO DAILY 90 days 90 tabs 1RF spironolactone Discontinued Reason: Doctor's Order 25 mg PO DAILY 90 days 90 tabs 2RF Coding Level of Care Code Est Pt Level 4 (15134) Diagnoses Hypertension I10 Proteinuria R80.9 Hypokalemia E87.6
[2024-04-30 08:39] VITALS: BP 146/80; PULSE 57; O2SAT 99; BMI 31.1
== END 2024-04-30 09:03 | disposition home or self-care (01) ==
PROVIDERS: PCP Family Medicine; Visit Provider Internal Medicine Hypertension Specialist
DX: I10 Essential (primary) hypertension (principal); R80.9 Proteinuria, unspecified; E87.6 Hypokalemia
CPT/HCPCS: 99214

== ENCOUNTER 2024-05-14 08:33 | Outpatient (REF) | payer OTHER, SELFPAY ==
[2024-05-14 08:48] LABS: MANUAL DIFF FLAG NO
[2024-05-14 09:09] LABS: Basophils Absolute Auto 0.1 X10*3/uL (0.0-0.2); Basophils Percent Auto 1.2 % (0-2); Eosinophils Absolute Auto 0.3 X10*3/uL (0.0-0.4); Eosinophils Percent Auto 3.7 % (0-4); Hematocrit 41.7 % (42.0-52.0); Hemoglobin 14.1 g/dl (14.0-18.0); Imm Gran Abs Auto 0.02 X10*3/uL (0.00-0.03); Imm Gran Pct Auto 0.3 % (0.0-0.4); Lymphocytes Absolute Auto 3.4 X10*3/uL (1.2-4.9); Mean Corpuscular HGB Conc 33.8 g/dl (31.0-36.0); Mean Corpuscular Hemoglobin 28.5 pg (27.0-33.0); Mean Corpuscular Volume 84.2 fL (80.0-98.0); Mean Platelet Volume 9.3 fL (9.4-12.4); Monocytes Absolute Auto 0.6 X10*3/uL (0.1-1.2); Monocytes Percent Auto 8.7 % (2-11); Neutrophils Absolute Auto 2.4 x10*3/uL (2.0-8.3); Neutrophils Percent Auto 35.1 % (45-73); Platelet Count 281 X10*3/uL (160-400); Red Blood Count 4.95 X10*6/uL (4.60-5.80); Red Cell Distribution Width 14.1 % (11.0-16.0); White Blood Count 6.7 X10*3/uL (4.8-10.8)
[2024-05-14 09:37] LABS: Anion Gap 12 (12-20); Blood Urea Nitrogen 11 mg/dL (9-16); Calcium 9.6 mg/dL (8.4-10.2); Carbon Dioxide 29 mmol/L (22-29); Chloride 106 mmol/L (96-108); Estimated Glomerular Filt Rate > 60; Glucose Random 104 mg/dL (60-115); Potassium 3.3 mmol/L (3.3-5.1); Sodium 144 mmol/L (135-145)
[2024-05-14 09:55] LABS: PSA,Total (Free>4and<10) 0.53 ng/mL (0.00-4.00)
[2024-05-22 17:29] LABS: Cortisol, Free 0.52 mcg/dL
[2024-05-23 10:08] LABS: Renin 0.16 ng/mL/h (0.25-5.82)
[2024-05-25 14:29] LABS: Aldosterone/Renin Ratio 187.5 Ratio (0.9-28.9); Plasma Renin Activity 0.16 ng/mL/h (0.25-5.82)
== END 2024-05-14 08:34 | disposition home or self-care (01) ==
LOC: HO.LAB 08:33
PROVIDERS: Physician Assistant; Urology; PCP Family Medicine; Visit Provider Internal Medicine Hypertension Specialist
DX: I10 Essential (primary) hypertension (principal); Z12.5 Encounter for screening for malignant neoplasm of prostate; E87.6 Hypokalemia; M25.572 Pain in left ankle and joints of left foot; L03.116 Cellulitis of left lower limb; I1A.0 Resistant hypertension
CPT/HCPCS: 36415; 80048; 82088; 82530; 84153; 84244; 85025

== ENCOUNTER 2024-05-28 09:16 | Outpatient (AMB) | payer OTHER, SELFPAY ==
--- NOTE | 2024-05-28 09:21 | HO.NEPHOV ---
Vital Signs 05/28/24 09:23 Height 5 ft 10 in Weight 218 lb BMI 31.3 BP 166/86 H Blood Pressure Location Lt brachial Position Sitting Pulse 55 Pulse Source Pulse Oximeter Pulse Oximetry (%) 99 Oxygen Delivery Method Room Air Intake Visit Reasons: 4wk follow up Medical Or Surgical Instrument Maker Required: No Accompanied by: Self / Same As Patient Allergies Sulfa (Sulfonamide Antibiotics) Allergy (Unknown, Verified 05/28/24 09:26) Itching Medication List - Last Reconciled 05/28/24 by Augusto Lovett MD allopurinol 200 mg PO DAILY PRN amlodipine-olmesartan 10-40 mg 1 tab PO DAILY metoprolol succinate ER 12.5 mg PO DAILY spironolactone 25 mg PO DAILY HPI Comments Details: 58-year-old man with hypertension and proteinuria. He had persistent hypokalemia while on chlorthalidone. Potassium was 2.7. He was given potassium supplementation. At present he has no new complaints. 04/30/2024. Events noted. He is currently on potassium supplementation along with spironolactone. Cardiac workup in progress. Despite spironolactone and potassium supplementation serum potassium is relatively low around 3.9 mg/dL. He continues to have mild alkalosis with a total CO2 of 30 which is spontaneous. This raises the suspicion for hyperaldosteronism. 05/28/2024. As planned he has stopped spironolactone and olmesartan underwent lab testing. Serum aldosterone and plasma renin activity was tested. He has restarted aldosterone and olmesartan after the lab tests. Home blood pressure readings have been acceptable. No new issues today. [facility] Family History Father No problems noted. Mother No problems noted. 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 Lungs entry equal no rales. Heart S1-S2 heard no gallop or rub. Abdomen soft nontender. Neuro alert awake oriented. No asterixis. Extremities no edema. Results Reviewed Results Reviewed: Serum aldosterone elevated at 30 Plasma renin activity 0.16 PA/PRA was 186. Elevated. Nephrology Results: Hgb 14.1 g/dl (14.0-18.0) 05/14/24 WBC 6.7 X10*3/uL (4.8-10.8) 05/14/24 Plt Count 281 X10*3/uL (160-400) 05/14/24 Sodium 144 mmol/L (135-145) 05/14/24 Potassium 3.3 mmol/L (3.3-5.1) 05/14/24 Chloride 106 mmol/L (96-108) 05/14/24 Carbon Dioxide 29 mmol/L (22-29) 05/14/24 BUN 11 mg/dL (9-16) 05/14/24 Creatinine 1.17 mg/dL (0.5-1.4) 05/14/24 Calcium 9.6 mg/dL (8.4-10.2) 05/14/24 Urine Creatinine 192.68 mg/dL 04/25/24 Assessment & Plan Assessment & Plan (1) Hypertension: Code(s): I10 - Essential (primary) hypertension Category: Medical (2) Proteinuria: Code(s): R80.9 - Proteinuria, unspecified Category: Medical (3) Hypokalemia: Code(s): E87.6 - Hypokalemia Category: Medical (4) Resistant hypertension: Code(s): I1A.0 - Resistant hypertension Category: Medical Plan 58-year-old man with longstanding hypertension with proteinuria. Urine protein creatinine ratio was0.25. Most likely due to underlying hypertensive kidney disease. Pepe has hypokalemia which is currently unprovoked. Also has mild alkalosis without diuretics. This raises suspicion for hyperaldosteronism. serum aldosterone was elevated PA/PRA ratio was elevated at 186. Next step is to increase spironolactone to 20 mg b.i.d. Watch blood pressure at home and we should taper other medications out if needed. Check CT scan of the adrenal glands- ordered. Based on this we will plan for adrenal vein sampling to check for lateralization. I have explained the process to him. . Orders: Orders CT abdomen pelvis w IV con Today Augusto Lovett MD E87.6 - Hypokalemia, I1A.0 - Resistant hypertension Basic Metabolic Panel 4 Weeks Augusto Lovett MD I10 - Essential (primary) hypertension Medications: New spironolactone 25 mg PO BID 60 tabs 1RF Augusto Lovett MD Changed From allopurinol 200 mg (2 x 100 mg) PO DAILY 90 days 180 tabs 1RF To allopurinol 200 mg PO DAILY PRN Tod Monte MD Coding Level of Care Code Est Pt Level 4 (02841) Diagnoses Hypertension I10 Proteinuria R80.9 Hypokalemia E87.6 Resistant hypertension I1A.0
[2024-05-28 09:23] VITALS: BP 166/86; PULSE 55; O2SAT 99; BMI 31.3
== END 2024-05-28 09:44 | disposition home or self-care (01) ==
PROVIDERS: PCP Family Medicine; Visit Provider Internal Medicine Hypertension Specialist
DX: I10 Essential (primary) hypertension (principal); R80.9 Proteinuria, unspecified; E87.6 Hypokalemia; I1A.0 Resistant hypertension
CPT/HCPCS: 99214

== ENCOUNTER → 2024-05-28 09:16 | Outpatient (BNVA) | payer OTHER, SELFPAY | PROVIDERS: PCP Family Medicine; Visit Provider Internal Medicine Hypertension Specialist | DX: I10 Essential (primary) hypertension (principal); E87.6 Hypokalemia ==

== ENCOUNTER 2024-06-23 08:48 | Outpatient (REF) | payer OTHER, SELFPAY ==
[2024-06-23 09:45] LABS: Anion Gap 7 (12-20); Blood Urea Nitrogen 12 mg/dL (9-16); Calcium 9.2 mg/dL (8.4-10.2); Carbon Dioxide 29 mmol/L (22-29); Chloride 109 mmol/L (96-108); Estimated Glomerular Filt Rate > 60; Glucose Random 102 mg/dL (60-115); Potassium 4.1 mmol/L (3.3-5.1); Sodium 141 mmol/L (135-145)
== END 2024-06-23 08:49 | disposition home or self-care (01) ==
LOC: HO.LAB 08:48
PROVIDERS: PCP Family Medicine; Visit Provider Internal Medicine Hypertension Specialist
DX: Z00.00 Encounter for general adult medical examination without abnormal findings (principal); I10 Essential (primary) hypertension
CPT/HCPCS: 36415; 80048

== ENCOUNTER 2024-07-02 08:52 | Outpatient (AMB) | payer OTHER, SELFPAY ==
[2024-07-02 09:01] VITALS: BP 166/82; PULSE 57; O2SAT 99; BMI 31.3
--- NOTE | 2024-07-02 09:01 | HO.NEPHOV_ITS ---
Vital Signs 07/02/24 09:01 Height 5 ft 10 in Weight 218 lb BMI 31.3 BP 166/82 H Blood Pressure Location Lt brachial Position Sitting Pulse 57 Pulse Source Pulse Oximeter Pulse Oximetry (%) 99 Oxygen Delivery Method Room Air Intake Visit Reasons: Francis follow up/ Conf Independent Insurance Adjuster Required: No Accompanied by: Self / Same As Patient Allergies Sulfa (Sulfonamide Antibiotics) Allergy (Unknown, Verified 07/02/24 09:03) Itching Medication List - Last Reconciled 07/02/24 by Augusto Lovett MD allopurinol 200 mg PO DAILY PRN amlodipine-olmesartan 10-40 mg 1 tab PO DAILY spironolactone 25 mg PO BID HPI Comments Details: 58-year-old man with hypertension and proteinuria. He had persistent hypokalemia while on chlorthalidone. Potassium was 2.7. He was given potassium supplementation. At present he has no new complaints. 04/30/2024. Events noted. He is currently on potassium supplementation along with spironolactone. Cardiac workup in progress. Despite spironolactone and potassium supplementation serum potassium is relatively low around 3.9 mg/dL. He continues to have mild alkalosis with a total CO2 of 30 which is spontaneous. This raises the suspicion for hyperaldosteronism. 05/28/2024. As planned he has stopped spironolactone and olmesartan underwent lab testing. Serum aldosterone and plasma renin activity was tested. He has restarted aldosterone and olmesartan after the lab tests. Home blood pressure readings have been acceptable. No new issues today. 07/02/24 Home BP is still around [address] adrenals - not done yet CTA of coronaries- normal c/o epigastric pain PFSH Family History Father No problems noted. Mother No problems noted. 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 Lungs entry equal no rales. Heart S1-S2 heard no gallop or rub. Abdomen soft nontender. Neuro alert awake oriented. No asterixis. Extremities no edema. Results Reviewed Nephrology Results: Hgb 14.1 g/dl (14.0-18.0) 05/14/24 WBC 6.7 X10*3/uL (4.8-10.8) 05/14/24 Plt Count 281 X10*3/uL (160-400) 05/14/24 Sodium 141 mmol/L (135-145) 06/23/24 Potassium 4.1 mmol/L (3.3-5.1) 06/23/24 Chloride 109 mmol/L (96-108) H 06/23/24 Carbon Dioxide 29 mmol/L (22-29) 06/23/24 BUN 12 mg/dL (9-16) 06/23/24 Creatinine 1.18 mg/dL (0.5-1.4) 06/23/24 Calcium 9.2 mg/dL (8.4-10.2) 06/23/24 Urine Creatinine 192.68 mg/dL 04/25/24 Assessment & Plan Assessment & Plan (1) Hypertension: Code(s): I10 - Essential (primary) hypertension Category: Medical (2) Proteinuria: Code(s): R80.9 - Proteinuria, unspecified Category: Medical (3) Hypokalemia: Code(s): E87.6 - Hypokalemia Category: Medical (4) Resistant hypertension: Code(s): I1A.0 - Resistant hypertension Category: Medical Plan 58-year-old man with longstanding hypertension with proteinuria. Urine protein creatinine ratio was 0.25. Most likely due to underlying hypertensive kidney disease. Pepe has hypokalemia which is currently unprovoked. Also has mild alkalosis without diuretics. This raises suspicion for hyperaldosteronism. serum aldosterone was elevated PA/PRA ratio was elevated at 186. Next step is to increase add Coreg 6.25 mg BID keep spironolactone 25 mg b.i.d. Watch blood pressure at home Check CT scan of the adrenal glands- Reordered. Based on this we will plan for adrenal vein sampling to check for lateralization. I have explained the process to him. Add Omeprazole to see if symptoms improve . Medications: New carvedilol (Coreg) must administer with a meal/food 6.25 mg PO BID 60 tabs 3RF omeprazole 20 mg PO DAILY 30 caps 3RF Coding Level of Care Code Est Pt Level 4 (57679) Diagnoses Hypertension I10 Proteinuria R80.9 Hypokalemia E87.6 Resistant hypertension I1A.0
--- OUTSIDE RECORDS SUMMARY | 2024-07-02 09:07 | XMS_ITS | Clinical Summary ---
Author Organization [facility] ity Address [address] [place] [address] Care Team Providers Care Cryptographer Name Role Phone Unavailable Primary Care Provider Unavailabl e Social History Tobacco Use Types Packs/Day Years Used Date Smoking Tobacco: Never Assessed Sex and Gender Information Value Date Recorded Sex Assigned at Not on file Gender Identity Not on file Sexual Orientation Not on file Plan of Treatment Health Maintenance Due Date Last Done Comments DTaP,Tdap,and Td Vaccines (1 - Tdap) 10/18/1982 Zoster Vaccines (1 of 2) 10/18/2013 COVID-19 Vaccine (2023-2 5 season) 2024 Influenza Vaccine (#1) 2024 RSV Immunization Patients 60 + Years Old (1 - 1-dose 75+ series) 10/18/2038 HIB Vaccines Aged Out No longer eligi ble based on patient's age to complete this topic HPV Vaccines Aged Out No longer eligi ble based on patient's age to complete this topic Hepatitis A Vaccines Aged Out No long er eligible based on patient's age to complete this topic Hepatitis B Vaccines Aged Out No long er eligible based on patient's age to complete this topic IPV Vaccines Aged Out No longer eligi ble based on patient's age to complete this topic MMR Vaccines Aged Out No longer eligi ble based on patient's age to complete this topic Meningococcal ACWY Vaccine Aged Out N o longer eligible based on patient's age to complete this topic Pneumococcal Vaccine: Pediat rics (0 to 5 Years) and At-Risk Patients (6 to 64 Years) Aged Out No longer eligible b ased on patient's age to complete this topic RSV Immunization Patients Un laina 20 months Aged Out No longer eligible b ased on patient's age to complete this topic Varicella Vaccines Aged Out No longer eligible based on patient's age to complete this topic
== END 2024-07-02 09:23 | disposition home or self-care (01) ==
PROVIDERS: PCP Family Medicine; Visit Provider Internal Medicine Hypertension Specialist
DX: I10 Essential (primary) hypertension (principal); R80.9 Proteinuria, unspecified; E87.6 Hypokalemia; I1A.0 Resistant hypertension
CPT/HCPCS: 99214

== ENCOUNTER 2024-07-11 08:42 | Outpatient (REF) | payer OTHER, SELFPAY ==
--- NOTE | ~2024-07-11 | CT_ITS ---
EXAMINATION: CT ABDOMEN AND PELVIS WITH CONTRAST CLINICAL INFORMATION: Hypokalemia. Hyperaldosteronism. Concerning for adrenal adenoma COMPARISON: CT dated February 13, 2023. TECHNIQUE: Multidetector volumetric images were obtained from the superior aspect of the liver through the pubic symphysis following administration 85 mL of Omnipaque 350 intravenous contrast. Sagittal and coronal reformatted images were obtained on the technologist's workstation. Oral contrast: No This CT examination was performed using dose optimization techniques as appropriate, variously including the following: *Automated exposure control *Adjustment of mA and/or kV according to patient size (this includes techniques or standardized protocols for targeted exams where dose is matched to indication/reason for exam; i.e. extremities or head) *Use of iterative reconstruction technique. DLP: 407 mg centimeter. FINDINGS: LUNG BASES: Nonspecific patchy pulmonary groundglass in the periphery of the included lungs. LIVER, GALLBLADDER, AND BILIARY TREE: Liver measures 15 cm. No focal mass. Main portal veins, hepatic veins and intrahepatic portions of the IVC are patent. No intrahepatic biliary ductal dilatation. No pericholecystic fluid collection or gallbladder wall thickening. Common bile duct measures 3 mm. PANCREAS: No focal mass. No peripancreatic fluid collections. No main pancreatic ductal dilatation. SPLEEN: 7 cm. No focal mass. ADRENAL GLANDS: No nodular lesions. KIDNEYS AND URETERS: No hydronephrosis. No gross nephrolithiasis. 4 cm fluid density in the anterior lateral aspect lower pole left kidney. No gross renal mass in either kidney. BLADDER: Fluid-filled nearly collapsed. GASTROINTESTINAL TRACT: Appendix is normal. No intestinal obstruction pattern. No pneumatosis intestinalis. No pneumoperitoneum. No ascites. No peripheral enhancing fluid collections in the peritoneal cavity. ABDOMINAL WALL: Small tiny fat-containing umbilical hernia. LYMPH NODES: Nonspecific mildly prominent mesenteric lymph nodes. VASCULAR: No aneurysm or dissection, abdominal aorta. Calcified plaques in the abdominal aorta wall and iliac arteries. PELVIC VISCERA: Prostate gland is not enlarged. OSSEOUS STRUCTURES: Multilevel thoracolumbar spondylosis. Sclerosis in the sacroiliac joints. Bone marrow inhomogeneity. No acute fracture or dislocation in the pelvis and/or hips. CT/CT abdomen pelvis w IV con IMPRESSION: No nodular lesions or soft tissue fullness in the adrenal glands. Bosniak type I cyst, left kidney. Small fat-containing umbilical hernia. Multilevel thoracolumbar spondylosis. Questionable calcium metabolic disorder. Fleischner guidelines were followed. Electronically signed by: Cory Angeles MD 07/11/2024 09:45 AM HERNAN
[2024-07-11] MEDS: iohexoL 350 MG/ML 100 ML INFUS..BTL 85 ML IV (09:09)
== END 2024-07-11 08:43 | disposition home or self-care (01) ==
LOC: HO.CT 08:42
PROVIDERS: PCP Family Medicine; Visit Provider Internal Medicine Hypertension Specialist
DX: I1A.0 Resistant hypertension (principal); E87.6 Hypokalemia
CPT/HCPCS: 74177; Q9967

== ENCOUNTER → 2024-07-11 08:44 | Outpatient (BNV) | payer OTHER, SELFPAY | PROVIDERS: PCP Family Medicine; Visit Provider Radiology Diagnostic Radiology | DX: E87.6 Hypokalemia (principal) | CPT/HCPCS: 74177 ==

== ENCOUNTER 2024-07-14 08:52 | Outpatient (AMB) | payer OTHER, SELFPAY ==
--- NOTE | 2024-07-14 08:54 | A.OFFVIS_ITS ---
Vital Signs 07/14/24 08:55 Height 5 ft 10 in Weight 217 lb 6.012 oz BMI 31.2 BP 142/70 H Blood Pressure Location Lt brachial Position Sitting Pulse 56 Pulse Source Pulse Oximeter Intake Visit Reasons: 3m/CTA Research Associate Professor Required: No Accompanied by: self Allergies Sulfa (Sulfonamide Antibiotics) Allergy (Unknown, Verified 07/02/24 09:03) Itching Medication List - Last Reconciled 07/14/24 by Catracho Siddiqui MD allopurinol 200 mg PO DAILY PRN amlodipine-olmesartan 10-40 mg 1 tab PO DAILY carvedilol (Coreg) 6.25 mg PO BID omeprazole 20 mg PO DAILY spironolactone 25 mg PO BID HPI Comments Details: Pepe returns for follow-up. Recently seen in consultation regarding hypertension/pulmonary hypertension. Patient has longstanding hypertension but not well controlled. He also has chronic hypokalemia. Currently, on a combination of amlodipine, olmesartan, metoprolol and spironolactone. Apparently he was also asked to stop the potassium. Any case, he does not really have any clear-cut cardiac symptoms. No previous history of any coronary disease or myocardial infarction or cardiomyopathy. [facility] Family History Father No problems noted. Mother No problems noted. 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 Current occupational exposures/hazards: No Cognitive needs: No Hearing needs: No Vision needs: No Review of Systems Const Denies chills, Denies fatigue, Denies fever(s), Denies weight gain and Denies weight loss ENT Denies dizziness Card Denies chest pain, Denies leg edema, Denies lightheadedness, Denies palpitations, Denies dyspnea on exertion, Denies orthopnea and Denies other Resp Denies cough and Denies dyspnea on exertion GI Denies hematochezia and Denies change in stool character Musc Denies abnormal gait, Denies muscle weakness, Denies numbness, Denies radiating pain into limb and Denies tingling Neuro Denies abnormal gait, Denies dizziness, Denies numbness and Denies tingling Endo Denies fatigue and Denies palpitations Physical Exam Vital Signs: Last Vital Signs Pulse 56 07/14/24 08:55 BP 142/70 H 07/14/24 08:55 BMI result Body Mass Index 31.2 Const General: comfortable and no acute distress Orientation/consciousness: patient oriented x3 HEENT Other: Unremarkable Head: Yes normal to inspection Neck Neck: Yes normal visual inspection Chest Chest palpation & inspection: normal inspection of the chest Resp Auscultation: clear to auscultation bilaterally Cardio Palpation: normal PMI Heart sounds: S1 normal heart sound present, S2 normal heart sound present, no gallops, no murmurs and no rubs GI Palpation (GI): Soft to palpation Back/Spine/Pelvis Other: unremarkable Skin General skin exam: no rashes or lesions noted Neuro General: patient oriented x3 Extrem General: Yes normal to inspection Psych Mental Status: mental status grossly normal Assessment & Plan Assessment & Plan (1) Resistant hypertension: Code(s): I1A.0 - Resistant hypertension Category: Medical (2) Hyperaldosteronism: Code(s): E26.9 - Hyperaldosteronism, unspecified Category: Medical Plan Echocardiogram with hyperdynamic LVEF, mild left ventricular hypertrophy and advanced diastolic dysfunction with mild pulmonary hypertension. Suspect echocardiographic findings are related to poorly controlled hypertension. Coronary CTA shows no significant CAD. Aldosterone/renin ratio is quite high with low renin levels that likely indicates a primary hyperaldosteronism type issue. Abdomen CTA shows no nodule lesions or soft tissue fullness in the adrenal glands. Overall, uncontrolled blood pressures, primary hyperaldosteronism. He needs further workup for the hyperaldosteronism, possibly with adrenal vein sampling. To be addressed through Nephrology. Otherwise, blood pressure is reasonable for now and may continue the current regimen which includes carvedilol, amlodipine, olmesartan, spironolactone. Follow-up in 6 months. Coding Level of Care Code Est Pt Level 4 (72911) Diagnoses Resistant hypertension I1A.0 Hyperaldosteronism E26.9
[2024-07-14 08:55] VITALS: BP 142/70; PULSE 56; BMI 31.2
--- OUTSIDE RECORDS SUMMARY | 2024-07-14 09:12 | XMS_ITS | Clinical Summary ---
Author Organization [facility] ity Address [address] [place] [address] Care Team Providers Care Building Appraiser Name Role Phone Unavailable Primary Care Provider [...]
== END 2024-07-14 09:08 | disposition home or self-care (01) ==
PROVIDERS: PCP Family Medicine; Visit Provider Internal Medicine
DX: I1A.0 Resistant hypertension (principal); E26.9 Hyperaldosteronism, unspecified
CPT/HCPCS: 99214

== ENCOUNTER 2024-07-30 08:33 | Outpatient (AMB) | payer OTHER, SELFPAY ==
[2024-07-30 08:37] VITALS: BP 124/80; PULSE 57; O2SAT 99; BMI 31.6
--- NOTE | 2024-07-30 08:37 | MHC.PC.OV ---
Vital Signs 07/30/24 08:37 Height 5 ft 10 in Weight 220 lb 4 oz BMI 31.6 BP 124/80 Blood Pressure Location Lt brachial Position Sitting Pulse 57 Pulse Source Pulse Oximeter Pulse Oximetry (%) 99 Oxygen Delivery Method Room Air Intake Visit Reasons: f/u hypertension, hypokalemia Allergies Sulfa (Sulfonamide Antibiotics) Allergy (Unknown, Verified 07/30/24 08:39) Itching Tobacco use date assessed: 07/30/24 Dental Screening Dental Screen Date: 07/30/24 Did you have a dental visit in the last 12 months?: Yes Did you have a dental problem in the last 6 months where you did not have access to dental care?: No Was dental information given to patient?: Patient has dentist HPI f/u hypertension, hypokalemia HPI Details Patient?presents?to?follow-up?hypertension?and?hypokalemia Workup?with?Cardiology?and?Nephrology?has?that?patient?aldosterone?level?is?quite?high?with?low?renin?and?appears?to?be?a?primary?hyperaldosteronism. 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 Blood?pressure?is?well?controlled?today. Potassium?level?was?back?within?normal?limits?a?week?ago?however?he?has?the?off?of?his?potassium?supplement?for?about?3?weeks?now. CT?scan?did?not?show?any?obvious?tumors?in?adrenal?glands. Nephrology?plans?renal?vein?sampling?as?next?step. Patient?feels?well.??No?new?complaints PFSH Family History Father No problems noted. Mother No problems noted. 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 1. Little interest or pleasure in doing things: several days 2. Feeling down, depressed, or hopeless: not at all 3. Trouble falling or staying asleep, or sleeping too much: several days 4. Feeling tired or having little energy: several days 5. Poor appetite or overeating: not at all 6. Feeling bad about yourself - or that you are a failure or have let yourself or your family down: not at all 7. Trouble concentrating on things, such as reading the newspaper or watching television: not at all 8. Moving or speaking so slowly that other people could have noticed. Or the opposite - being so fidgety or restless that you have been moving around a lot more than usual: not at all 9. Thoughts that you would be better off or of hurting yourself in some way: not at all Total score: 3 Depression Screening Interpretation: Negative Depression Screening Done: Yes 68010 - PHQ-9 Billing: Yes Source: Developed by Drs. Jewel De Oliveira, Madeline Magana, Kiel Pantoja and colleagues, with an educational den from [email or web address] Thrive Questionnaire Date Thrive assessed: 07/30/24 I am a: Patient What is your living situation today?: I have a steady place to live Within the past 12 months, did the food you bought not last and you didn't have the money to get more?: Never true Within the past 12 months, did you worry whether your food would run out before you got money to buy more?: Never true Do you have trouble paying for medicines?: No Do you have trouble getting transportation to medical appointments?: No Do you have trouble paying your heating and electricity bill?: No Do you have trouble taking care of your child, family member or friend?: No Do you have trouble with day-to-day activities such as bathing, preparing meals, shopping, managing finances, etc.?: No Are you currently unemployed and looking for a job?: No Are you interested in more education?: Yes Please select the resources that you would like help with: None Currently or been in a relationship where the following occur: No concerns reported THRIVE Score: 0 AUDIT C Alcohol Use Questionnaire (AUDIT-C) 1. How often do you have a drink containing alcohol?: Never 3. How often do you have six or more drinks on one occasion?: Never Total Score: 0 ASHKAN-7 AMB Questionnaire ASHKAN-7 Date ASHKAN - 7 assessed: 07/30/24 Feeling nervous, anxious, or on edge: 0 = Not at all Not being able to stop or control worryin = Not at all Worrying too much about different things: 0 = Not at all Trouble relaxin = Not at all Being so restless that it is hard to sit still: 0 = Not at all Becoming easily annoyed or irritable: 1 = Several days Feeling afraid as if something awful might happen: 0 = Not at all Total ASHKAN-7 score (0-4 normal; 5-9 mild; 10-14 moderate; 15-21 severe): 1 Source: Developed by Drs. Jewel De Oliveira, Madeline Magana, Kiel Pantoja and colleagues, with an educational den from [email or web address] ASHKAN-7 Assessment Billing ASHKAN-7 Assessment Tool: ASHKAN-7 Assessment 99501 Review of Systems Const Denies chills, Denies fatigue, Denies fever(s), Denies headache(s) and Denies weakness ENT Denies dizziness and Denies headache(s) Card Denies chest pain, Denies lightheadedness, Denies dyspnea and Denies other (Palpitations) Resp Denies cough, Denies dyspnea, Denies wheezing and Denies other ( shortness of breath) Musc Denies numbness and Denies tingling Neuro Denies dizziness, Denies headache(s), Denies numbness, Denies tingling, Denies paresthesias and Denies weakness Psych Denies anxiety and Denies depression Endo Denies fatigue Aller/Immun Denies wheezing Physical exam (Primary Care) Vital Signs: Last Vital Signs Pulse 57 07/30/24 08:37 BP 124/80 07/30/24 08:37 Pulse Ox 99 07/30/24 08:37 Oxygen Delivery Method Room Air 07/30/24 08:37 BMI result Body Mass Index 31.6 Tobacco/Smoking Status: Tobacco use Status Tobacco use date assessed 07/30/24 07/30/24 08:41 Patient Tobacco Use Status Never used Tobacco 07/30/24 08:37 e-Cigarette/Vaping Use Never Used 07/30/24 08:37 PHQ-9: PHQ-9 Score PHQ-9: Total score 3 07/30/24 08:41 Depression Screening Interpretation: Negative Thrive Assessment: Date of Thrive Assessment Date Thrive assessed 07/30/24 07/30/24 08:41 Currently or been in a relationship where the following occur: No concerns reported Const General: no acute distress and well developed Nutritional Appearance: well nourished Orientation/consciousness: patient oriented x3 HENMT Head: Yes normocephalic and Yes atraumatic Eyes General: appearance normal, both eyes and all related structures Pupils: Equal, round and reactive pupils present EOM: EOMs intact bilaterally Resp Effort & Inspection: normal respiratory effort Auscultation: clear to auscultation bilaterally Cardio Rate: regular rate Rhythm: regular rhythm Heart sounds: S1 normal heart sound present, S2 normal heart sound present, no gallops, no murmurs and no rubs Neuro General: patient oriented x3 and gait normal Cranial nerves: Yes Equal, round and reactive pupils present Psych Affect: normal affect Coding Level of Care Code Est Pt Level 3 (13923) Diagnoses Resistant hypertension I1A.0 Low HDL (under 40) E78.6 Hyperaldosteronism E26.9 Hypokalemia E87.6 Additional Codes ASHKAN-7 Assessment Billing - ASHKAN-7 Assessment Tool: ASHKAN-7 Assessment 00782 ([id number]) PHQ-9 - 80594 - PHQ-9 Billing: Yes ([id number]) Assessment & Plan Assessment & Plan (1) Resistant hypertension: Code(s): I1A.0 - Resistant hypertension Category: Medical (2) Low HDL (under 40): Code(s): E78.6 - Lipoprotein deficiency Category: Medical (3) Hyperaldosteronism: Code(s): E26.9 - Hyperaldosteronism, unspecified Category: Medical (4) Hypokalemia: Code(s): E87.6 - Hypokalemia Category: Medical Plan Resistant?hypertension?with?ratio?aldosterone?to?renin?consistent?with?primary?hyperaldosteronism. CT?scan?not?show?any?adrenal?masses. Nephrology?plans?renal?vein?sampling. Blood?pressure?is?currently?well?controlled?on?current?medication?regimen Potassium?levels?have?been?back?within?normal?limits.??Patient?had?increased?spironolactone?and?also?has?discontinued?his?potassium?supplement.??Will?check?potassium?levels?today. Continue?current?medication?regimen Orders: Orders Basic Metabolic Panel Today E26.9 - Hyperaldosteronism, unspecified, Z00.00 - Encounter for general adult medical examination without abnormal findings
--- OUTSIDE RECORDS SUMMARY | 2024-07-30 08:38 | XMS_ITS | Clinical Summary ---
Author Organization [facility] ity Address [address] [place] [address] Care Team Providers Care Research And Development Technician Name Role Phone Unavailable Primary Care Provider Unavailabl e Social History Tobacco Use Types Packs/Day Years Used Date Smoking Tobacco: Never Assessed Sex and Gender Information Value Date Recorded Sex Assigned at Not on file Legal Sex Male 10:35 AM EST Gender Identity Not on file Sexual Orientation Not on file Plan of Treatment Health Maintenance Due Date Last Done Comments DTaP,Tdap,and Td Vaccines (1 - Tdap) 10/18/1982 Pneumococcal Vaccine: 50+ Ye ars (1 of 1 - PCV) 10/18/2013 Zoster Vaccines (1 of 2) 10/18/2013 COVID-19 Vaccine ( - 2023-2 5 season) 2024 Influenza Vaccine (#1) 2024 [...] patient's age to complete this topic Meningococcal B Vacine Aged Out No lo nger eligible based on patient's age to complete [...]
== END 2024-07-30 09:02 | disposition home or self-care (01) ==
PROVIDERS: PCP Family Medicine; Visit Provider Family Medicine
DX: I1A.0 Resistant hypertension (principal); E78.6 Lipoprotein deficiency; E26.9 Hyperaldosteronism, unspecified; E87.6 Hypokalemia

== ENCOUNTER → 2024-07-30 08:33 | Outpatient (BNVA) | payer OTHER, SELFPAY | PROVIDERS: PCP Family Medicine; Visit Provider Family Medicine | DX: I1A.0 Resistant hypertension (principal); E87.6 Hypokalemia; E78.6 Lipoprotein deficiency; E26.9 Hyperaldosteronism, unspecified | CPT/HCPCS: 96127 ==

== ENCOUNTER 2024-07-30 09:12 | Outpatient (REF) | payer OTHER, SELFPAY ==
--- OUTSIDE RECORDS SUMMARY | 2024-07-30 09:24 | XMS_ITS | Clinical Summary ---
Author Organization [facility] ity Address [address] [place] [address] Care Team Providers Care Patient Care Assistant Name Role Phone Unavailable Primary Care Provider [...]
[2024-07-30 11:42] LABS: Anion Gap 10 (12-20); Blood Urea Nitrogen 16 mg/dL (9-16); Calcium 9.5 mg/dL (8.4-10.2); Carbon Dioxide 22 mmol/L (22-29); Chloride 111 mmol/L (96-108); Estimated Glomerular Filt Rate > 60; Glucose Random 128 mg/dL (60-115); Potassium 4.4 mmol/L (3.3-5.1); Sodium 139 mmol/L (135-145)
== END 2024-07-30 09:13 | disposition home or self-care (01) ==
LOC: HO.WFDLDS 09:12
PROVIDERS: Visit Provider Family Medicine
DX: Z00.00 Encounter for general adult medical examination without abnormal findings (principal); I10 Essential (primary) hypertension
CPT/HCPCS: 36415; 80048

== ENCOUNTER 2024-08-06 08:27 | Outpatient (AMB) | payer OTHER, SELFPAY ==
--- NOTE | 2024-08-06 08:27 | HO.NEPHOV_ITS ---
Vital Signs 08/06/24 08:28 Height 5 ft 10 in Weight 221 lb BMI 31.7 BP 138/70 Blood Pressure Location Lt brachial Position Sitting Pulse 62 Pulse Source Pulse Oximeter Pulse Oximetry (%) 98 Oxygen Delivery Method Room Air Intake Visit Reasons: 1 mnth f/u appt/ Conf Pattern Ruler Required: No Accompanied by: Self / Same As Patient Allergies Sulfa (Sulfonamide Antibiotics) Allergy (Unknown, Verified 08/06/24 08:30) Itching Medication List - Last Reconciled 08/06/24 by Augusto Lovett MD allopurinol 200 mg PO DAILY PRN amlodipine-olmesartan 10-40 mg 1 tab PO DAILY carvedilol (Coreg) 6.25 mg PO BID omeprazole 20 mg PO DAILY spironolactone 25 mg PO BID HPI Comments Details: 58-year-old man with hypertension and proteinuria. He had persistent hypokalemia while on chlorthalidone. Potassium was 2.7. He was given potassium supplementation. At present he has no new complaints. 04/30/2024. Events noted. He is currently on potassium supplementation along with spironolactone. Cardiac workup in progress. Despite spironolactone and potassium supplementation serum potassium is rela tively low around 3.9 mg/dL. He continues to have mild alkalosis with a total CO2 of 30 which is spontaneous. This raises the suspicion for hyperaldosteronism. 05/28/2024. As planned he has stopped spironolactone and olmesartan underwent lab testing. Serum aldosterone and plasma renin activity was tested. He has restarted aldosterone and olmesartan after the lab tests. Home blood pressure readings have been acceptable. No new issues today. 07/02/24 Home BP is still around [address] adrenals - not done yet CTA of coronaries- normal c/o epigastric pain 08/06/2024. Overall doing well. Tolerating medications. No new issues. [facility] Family History Father No problems noted. Mother No problems noted. 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 Lungs entry equal no rales. Heart S1-S2 heard no gallop or rub. Abdomen soft nontender. Neuro alert awake oriented. No asterixis. Extremities no edema. Results Reviewed Results Reviewed: 07/11/24 CT/CT abdomen pelvis w IV con IMPRESSION: No nodular lesions or soft tissue fullness in the adrenal glands. Bosniak type I cyst, left kidney. Small fat-containing umbilical hernia. Multilevel thoracolumbar spondylosis. Questionable calcium metabolic disorder. Nephrology Results: Sodium 139 mmol/L (135-145) 07/30/24 Potassium 4.4 mmol/L (3.3-5.1) 07/30/24 Chloride 111 mmol/L (96-108) H 07/30/24 Carbon Dioxide 22 mmol/L (22-29) 07/30/24 BUN 16 mg/dL (9-16) 07/30/24 Creatinine 1.21 mg/dL (0.5-1.4) 07/30/24 Calcium 9.5 mg/dL (8.4-10.2) 07/30/24 Assessment & Plan Assessment & Plan (1) Hypertension: Code(s): I10 - Essential (primary) hypertension Category: Medical (2) Proteinuria: Code(s): R80.9 - Proteinuria, unspecified Category: Medical (3) Hypokalemia: Code(s): E87.6 - Hypokalemia Category: Medical (4) Resistant hypertension: Code(s): I1A.0 - Resistant hypertension Category: Medical Plan 58-year-old man with longstanding hypertension with proteinuria. Urine protein creatinine ratio was 0.25. Most likely due to underlying hypertensive kidney disease. Pepe has hypokalemia which is currently unprovoked. Also has mild alkalosis without diuretics. This raised suspicion for hyperaldosteronism. serum aldosterone was elevated PA/PRA ratio was elevated at 186. At present blood pressure well controlled. Continue current medications. Watch blood pressure at home CT scan did not show any adrenal nodules or lesions. Since there was no specific lesions there is no indication for adrenal vein sampling at this time. . Orders: Orders Basic Metabolic Panel 3 Months I10 - Essential (primary) hypertension Coding Level of Care Code Est Pt Level 4 (63291) Diagnoses Hypertension I10 Proteinuria R80.9 Hypokalemia E87.6 Resistant hypertension I1A.0
[2024-08-06 08:28] VITALS: BP 138/70; PULSE 62; O2SAT 98; BMI 31.7
--- OUTSIDE RECORDS SUMMARY | 2024-08-06 08:57 | XMS_ITS | Clinical Summary ---
Author Organization [facility] ity Address [address] [place] [address] Care Team Providers Care Production Control Supervisor Name Role Phone Unavailable Primary Care Provider [...]
== END 2024-08-06 08:42 | disposition home or self-care (01) ==
PROVIDERS: PCP Family Medicine; Visit Provider Internal Medicine Hypertension Specialist
DX: I10 Essential (primary) hypertension (principal); R80.9 Proteinuria, unspecified; E87.6 Hypokalemia; I1A.0 Resistant hypertension
CPT/HCPCS: 99214

== ENCOUNTER 2024-08-28 08:45 | Outpatient (AMB) | payer OTHER, SELFPAY ==
--- NOTE | 2024-08-28 09:15 | A.OFFPC_ITS ---
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 Allergies Sulfa (Sulfonamide Antibiotics) Allergy (Unknown, Verified 08/28/24 09:19) Itching Medication List - Last Reconciled 08/28/24 by Tod Monte MD allopurinol 200 mg PO DAILY PRN amlodipine-olmesartan 10-40 mg 1 tab PO DAILY carvedilol (Coreg) 6.25 mg PO BID omeprazole 20 mg PO DAILY spironolactone 25 mg PO BID Tobacco use date assessed: 08/28/24 Dental Screening Dental Screen Date: 08/28/24 Did you have a dental visit in the last 12 months?: Yes Did you have a dental problem in the last 6 months where you did not have access to dental care?: No Was dental information given to patient?: No HPI Annual Exam HPI Details 58 y/o male presents for a CPE with f/u labs and health maintenance. No recent labs to review. Blood pressure today 130/66, 49p. He is on amlodipine-olmesartan 10-40mg daily. HPI Comments History of Present Illness Details Documentation assistance for Tod Monte MD, was provided by John Simeon,? High Density Press Laborer on 08/28/2024 at 9:55 AM EST. I, Dr. Monte, have read, observed, and verified documentation. ?? [facility] Family History Father No problems noted. Mother No problems noted. 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 1. Little interest or pleasure in doing things: not at all 2. Feeling down, depressed, or hopeless: not at all 3. Trouble falling or staying asleep, or sleeping too much: not at all 4. Feeling tired or having little energy: not at all 5. Poor appetite or overeating: not at all 6. Feeling bad about yourself - or that you are a failure or have let yourself or your family down: not at all 7. Trouble concentrating on things, such as reading the newspaper or watching television: not at all 8. Moving or speaking so slowly that other people could have noticed. Or the opposite - being so fidgety or restless that you have been moving around a lot more than usual: not at all 9. Thoughts that you would be better off or of hurting yourself in some way: not at all Total score: 0 Depression Screening Interpretation: Negative Depression Screening Done: Yes 10579 - PHQ-9 Billing: Yes Source: Developed by Drs. Jewel De Oliveira, Madeline Magana, Kiel Pantoja and colleagues, with an educational den from [employer]. Thrive Questionnaire Date Thrive assessed: 08/28/24 I am a: Patient What is your living situation today?: I have a steady place to live Within the past 12 months, did the food you bought not last and you didn't have the money to get more?: Never true Within the past 12 months, did you worry whether your food would run out before you got money to buy more?: Never true Do you have trouble paying for medicines?: No Do you have trouble getting transportation to medical appointments?: No Do you have trouble paying your heating and electricity bill?: No Do you have trouble taking care of your child, family member or friend?: No Do you have trouble with day-to-day activities such as bathing, preparing meals, shopping, managing finances, etc.?: No Are you currently unemployed and looking for a job?: No Are you interested in more education?: Yes Please select the resources that you would like help with: None Currently or been in a relationship where the following occur: No concerns reported THRIVE Score: 0 AUDIT C Alcohol Use Questionnaire (AUDIT-C) 1. How often do you have a drink containing alcohol?: Never 3. How often do you have six or more drinks on one occasion?: Never Total Score: 0 Score Reviewed/Action Taken: Yes ASHKAN-7 AMB Questionnaire ASHKAN-7 Date ASHKAN - 7 assessed: 08/28/24 Feeling nervous, anxious, or on edge: 0 = Not at all Not being able to stop or control worryin = Not at all Worrying too much about different things: 0 = Not at all Trouble relaxin = Not at all Being so restless that it is hard to sit still: 0 = Not at all Becoming easily annoyed or irritable: 0 = Not at all Feeling afraid as if something awful might happen: 0 = Not at all Total ASHKAN-7 score (0-4 normal; 5-9 mild; 10-14 moderate; 15-21 severe): 0 Source: Developed by Drs. Jewel De Oliveira, Madeline Magana, Kiel Pantoja and colleagues, with an educational den from [employer]. ASHKAN-7 Assessment Billing ASHKAN-7 Assessment Tool: ASHKAN-7 Assessment 12488 Review of Systems Const Denies chills, Denies fatigue, Denies fever(s), Denies headache(s) and Denies weakness Eyes Denies change in vision ENT Denies dizziness, Denies headache(s), Denies hearing loss, Denies nasal congestion, Denies sinus pain, Denies sinus pressure and Denies sore throat Card Denies chest pain, Denies lightheadedness, Denies dyspnea and Denies other (palpitations) Resp Denies cough, Denies dyspnea and Denies wheezing GI Denies abdominal pain, Denies melena, Denies hematochezia, Denies change in bowel habits, Denies dyspepsia and Denies nausea Denies hematuria and Denies dysuria Musc Denies abnormal gait, Denies myalgias, Denies arthralgias, Denies numbness and Denies tingling Skin/Breast Denies rash, Denies unusual bruising and Denies wounds Neuro Denies abnormal gait, Denies dizziness, Denies headache(s), Denies memory loss, Denies numbness, Denies Sensory deficit (Neuro), Denies tingling and Denies weakness Psych Denies anxiety, Denies depression and Denies memory loss Endo Denies cold intolerance, Denies fatigue, Denies heat intolerance, Denies polydipsia and Denies polyuria Paulie/Lymph Denies easy bleeding and Denies easy bruising Aller/Immun Denies wheezing Physical exam (Primary Care) Vital Signs: Last Vital Signs Temp 98.0 F 08/28/24 09:20 Pulse 49 L 08/28/24 09:20 Resp 14 08/28/24 09:20 BP 130/66 08/28/24 09:20 Pulse Ox 99 08/28/24 09:20 Oxygen Delivery Method Room Air 08/28/24 09:20 BMI result Body Mass Index 31.6 Tobacco/Smoking Status: Tobacco use Status Tobacco use date assessed 08/28/24 08/28/24 09:22 Patient Tobacco Use Status Never used Tobacco 08/28/24 09:22 e-Cigarette/Vaping Use Never Used 08/28/24 09:22 PHQ-9: PHQ-9 Score PHQ-9: Total score 0 08/28/24 09:43 Depression Screening Interpretation: Negative Thrive Assessment: Date of Thrive Assessment Date Thrive assessed 08/28/24 08/28/24 09:22 Currently or been in a relationship where the following occur: No concerns reported Const General: no acute distress, well developed, alert and awake Nutritional Appearance: well nourished Orientation/consciousness: patient oriented x3 HENMT Head: Yes normocephalic and Yes atraumatic Ears: hearing grossly normal bilaterally and TM's normal bilaterally General nose exam: Normal external nose present and Normal nares present Mouth: Normal oral and palatal mucosa present and moist mucous membranes Teeth and gingiva: dentition normal Throat: Yes posterior oropharynx normal Eyes General: appearance normal, both eyes and all related structures Pupils: Equal, round and reactive pupils present and Pupil accommodation reflex normal EOM: EOMs intact bilaterally Neck Neck: Yes normal visual inspection, Yes no lymphadenopathy and Yes trachea midline Thyroid: Thyroid normal Carotids: no bruits Lymphatic: no lymphadenopathy noted Chest Chest palpation & inspection: normal inspection of the chest Resp Effort & Inspection: normal respiratory effort Auscultation: clear to auscultation bilaterally Cardio Rate: regular rate Rhythm: regular rhythm Heart sounds: S1 normal heart sound present, S2 normal heart sound present, no gallops, no murmurs and no rubs Bruits: no abdominal aortic bruits and no carotid bruits GI Palpation (GI): No Abdominal aortic bruit present, Soft to palpation, nontender, No hepatosplenomegaly present and No Rebound tenderness present Auscultation: normal bowel sounds General: Yes no CVA tenderness Back/Spine/Pelvis Back: no CVA tenderness Cervical Spine: cervical ROM normal and No Cervical spine tenderness Thoracic/Lumbar Spine: thoraco-lumbar ROM normal, No pain with thoraco-lumbar ROM, No thoracic spinal tenderness and No lumbar spinal tenderness Skin Lesions: no lesions Rashes: no rashes Trauma: no lacerations or abrasions Wounds: no wounds Nails: normal Neuro General: patient oriented x3 Cranial nerves: Yes Equal, round and reactive pupils present Cognition (Neuro): normal cognition Gait exam (Neuro): Normal gait present Motor exam (neuro): 5/5 motor strength present throughout Sensory Exam: No Sensory deficit (Neuro) Deep tendon reflexes (DTR's): Right patellar reflex intensity grade: 2+ and Left patellar reflex intensity grade: 2+ Extrem General: Yes normal to inspection and No edema Psych Appearance: grossly normal Affect: normal affect Attitude: cooperative Thought process: Normal thought process present Coding Level of Care Code Est Pt Level 3 (34746) Est Pt Prev Care 40-64y(91608) Diagnoses Annual physical exam Z00.00 Essential hypertension I10 Screening for colon cancer Z12.11 Screening for prostate cancer Z12.5 Hyperaldosteronism E26.9 Additional Codes ASHKAN-7 Assessment Billing - ASHKAN-7 Assessment Tool: ASHKAN-7 Assessment 25677 ( [id number]) PHQ-9 - 83232 - PHQ-9 Billing: Yes ([id number]) Assessment & Plan Assessment & Plan (1) Annual physical exam: Code(s): Z00.00 - Encounter for general adult medical examination without abnormal findings Category: Medical Plan: 58-year-old?male?presents?for?complete?physical?exam Encouraged?healthy?diet?with?active?lifestyle?and?plenty?of?exercise (2) Essential hypertension: Code(s): I10 - Essential (primary) hypertension Category: Medical Plan: Hypertension?secondary?to?hyperaldosteronism Blood?pressure?today?is?controlled?on?current?medication?regimen.??Goal?is?less? than?140/90 Continuing?current?medications (3) Screening for colon cancer: Code(s): Z12.11 - Encounter for screening for malignant neoplasm of colon Category: Medical Plan: Patient?was?referred?to?gastroenterology?but?was?contacted. Referred?him?again (4) Screening for prostate cancer: Code(s): Z12.5 - Encounter for screening for malignant neoplasm of prostate Category: Medical Plan: PSA?at?prior?Check?was?within?normal?limits Continue?annual?screening?and?due?in?a?few?months. Reordered?PSA?and?will?review?at?next?visit (5) Hyperaldosteronism: Code(s): E26.9 - Hyperaldosteronism, unspecified Category: Medical Plan: Stable Blood?pressure?is?controlled?and?potassium?level?is?within?limits Followed?by?Nephrology Orders: Orders Complete Blood Count Auto Diff Today Z00.00 - Encounter for general adult medical examination without abnormal findings Lipid Panel Today Z00.00 - Encounter for general adult medical examination without abnormal findings TSH reflex Free T4 Today Z00.00 - Encounter for general adult medical examination without abnormal findings Comprehensive [place]. Panel Fast Today Z00.00 - Encounter for general adult medical examination without abnormal findings Prostate Specific Antigen Scr Today Z12.5 - Encounter for screening for malignant neoplasm of prostate Microalbumin, Random (w Creat) Today I10 - Essential (primary) hypertension UA and rflx microscopic Today Z00.00 - Encounter for general adult medical examination without abnormal findings Medications: Changed From amlodipine-olmesartan 10-40 mg 1 tab PO DAILY To amlodipine-olmesartan 10-40 mg 1 tab PO DAILY 90 tabs 3RF 90 days
[2024-08-28 09:20] VITALS: BP 130/66; PULSE 49; RESP 14; TEMP 36.7; O2SAT 99; BMI 31.6
== END 2024-08-28 09:55 | disposition home or self-care (01) ==
LOC: HO.HMCFM 08:46
PROVIDERS: PCP Family Medicine; Visit Provider Family Medicine
DX: Z00.00 Encounter for general adult medical examination without abnormal findings (principal); I10 Essential (primary) hypertension; E26.9 Hyperaldosteronism, unspecified; Z12.11 Encounter for screening for malignant neoplasm of colon; Z12.5 Encounter for screening for malignant neoplasm of prostate

== ENCOUNTER → 2024-08-28 08:45 | Outpatient (BNVA) | payer OTHER, SELFPAY | PROVIDERS: PCP Family Medicine; Visit Provider Family Medicine | DX: Z00.00 Encounter for general adult medical examination without abnormal findings (principal); I10 Essential (primary) hypertension; E26.9 Hyperaldosteronism, unspecified | CPT/HCPCS: 96127 ==

== ENCOUNTER 2024-09-24 08:38 | Outpatient (REF) | payer OTHER, SELFPAY ==
--- OUTSIDE RECORDS SUMMARY | 2024-09-24 09:00 | XMS_ITS | Clinical Summary ---
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
[2024-09-24 11:23] LABS: MANUAL DIFF FLAG NO
[2024-09-24 11:33] LABS: Basophils Absolute Auto 0.1 X10*3/uL (0.0-0.2); Basophils Percent Auto 0.9 % (0-2); Eosinophils Absolute Auto 0.1 X10*3/uL (0.0-0.4); Eosinophils Percent Auto 2.1 % (0-4); Hematocrit 37.7 % (42.0-52.0); Imm Gran Abs Auto 0.03 X10*3/uL (0.00-0.03); Imm Gran Pct Auto 0.5 % (0.0-0.4); Lymphocytes Absolute Auto 2.9 X10*3/uL (1.2-4.9); Lymphocytes Percent Auto 51.2 % (20-40); Mean Corpuscular HGB Conc 34.5 g/dl (31.0-36.0); Mean Corpuscular Hemoglobin 29.5 pg (27.0-33.0); Mean Corpuscular Volume 85.7 fL (80.0-98.0); Mean Platelet Volume 9.8 fL (9.4-12.4); Monocytes Absolute Auto 0.5 X10*3/uL (0.1-1.2); Monocytes Percent Auto 8.8 % (2-11); Neutrophils Absolute Auto 2.1 x10*3/uL (2.0-8.3); Neutrophils Percent Auto 36.5 % (45-73); Platelet Count 272 X10*3/uL (160-400); Red Cell Distribution Width 13.9 % (11.0-16.0); White Blood Count 5.7 X10*3/uL (4.8-10.8)
[2024-09-24 11:50] LABS: Appearance Urine Clear; Color Urine Yellow; Glucose Urine UA Negative (Negative); Leukocyte Esterase Urine Negative (Negative); Nitrite Urine Negative (Negative); PH 5.5 (5.0-9.0); UMIC TRIGGER UA YES; Urine Blood Trace (Negative); Urine Ketones Trace mg/dL (Negative); Urine Protein 30 (1+) mg/dL (Neg-Trace)
[2024-09-24 11:55] LABS: Bacteria Urine None Seen (None Seen); Hyaline Casts Urine 0-2 /LPF (0-2); RBC Urine 0-2 /HPF (0-2); Squamous Epithelial Cell Urine 0-2 /HPF (0-2); WBC Urine 0-5 /HPF (0-5)
[2024-09-24 11:56] LABS: Alanine Aminotransferase 30 U/L (0-40); Albumin Level 3.9 g/dL (3.5-5.0); Alkaline Phosphatase 131 U/L (39-117); Anion Gap 9 (12-20); Aspartate Amino Transferase 36 U/L (5-37); Bilirubin Total 0.4 mg/dL (0.0-1.0); Blood Urea Nitrogen 17 mg/dL (9-16); Calcium 9.2 mg/dL (8.4-10.2); Carbon Dioxide 24 mmol/L (22-29); Chloride 110 mmol/L (96-108); Cholesterol 138 mg/dL (<200); Estimated Glomerular Filt Rate > 60; Glucose Fasting 103 mg/dL (60-99); Glucose Random 102 mg/dL (60-115); HDL Cholesterol 28 mg/dL (>40); LDL Cholesterol Calculated 94 mg/dL (<100); Potassium 4.4 mmol/L (3.3-5.1); Sodium 139 mmol/L (135-145); Triglycerides 84 mg/dL (<150)
[2024-09-24 11:59] LABS: Prostate Specific Antigen Scr 0.32 ng/mL (<0.05-4.0)
== END 2024-09-24 08:39 | disposition home or self-care (01) ==
LOC: HO.WFDLDS 08:38
PROVIDERS: Referring Provider Internal Medicine Hypertension Specialist; Visit Provider Family Medicine
DX: Z00.00 Encounter for general adult medical examination without abnormal findings (principal); Z12.5 Encounter for screening for malignant neoplasm of prostate; I10 Essential (primary) hypertension
CPT/HCPCS: 36415; 80048; 80053; 80061; 81001; 82043; 82570; 84153; 84443; 85025

== ENCOUNTER 2024-10-02 09:27 | Outpatient (AMB) | payer OTHER, SELFPAY ==
--- NOTE | 2024-10-02 09:50 | MHC.PC.OV ---
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 Blood pressure today 134/70, 49p. He is on carvedilol 6.25mg b.i.d, amlodipine-olmesartan 10-40mg, spironolactone 25mg b.i.d. Labs drawn 09/24/24. Reviewed labs with pt. Mild anemia. Fasting glucose 103. Triglycerides 84. TC 138. LDL 94. HDL low at 28. [facility] Family History Father No problems noted. Mother No problems noted. 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 Current occupational exposures/hazards: No Cognitive needs: No Hearing needs: No Vision needs: No Questionnaire Thrive Questionnaire Date Thrive assessed: 08/28/24 I am a: Patient What is your living situation today?: I have a steady place to live Within the past 12 months, did the food you bought not last and you didn't have the money to get more?: Never true Within the past 12 months, did you worry whether your food would run out before you got money to buy more?: Never true Do you have trouble paying for medicines?: No Do you have trouble getting transportation to medical appointments?: No Do you have trouble paying your heating and electricity bill?: No Do you have trouble taking care of your child, family member or friend?: No Do you have trouble with day-to-day activities such as bathing, preparing meals, shopping, managing finances, etc.?: No Are you currently unemployed and looking for a job?: No Are you interested in more education?: Yes Please select the resources that you would like help with: None Currently or been in a relationship where the following occur: No concerns reported THRIVE Score: 0 ASHKAN-7 AMB Questionnaire ASHKAN-7 Date ASHKAN - 7 assessed: 08/28/24 Source: Developed by Drs. Jewel De Oliveira, Madeline Magana, Kiel Pantoja and colleagues, with an educational den from [employer]. Review of Systems Const Denies chills, Denies fatigue, Denies fever(s), Denies headache(s) and Denies weakness ENT Denies dizziness and Denies headache(s) Card Denies dyspnea Resp Denies cough, Denies dyspnea, Denies wheezing and Denies other (shortness of breath) Musc Denies numbness and Denies tingling Neuro Denies dizziness, Denies headache(s), Denies numbness, Denies tingling and Denies weakness Psych Denies anxiety and Denies depression Endo Denies fatigue Aller/Immun Denies wheezing Physical exam (Primary Care) Vital Signs: Last Vital Signs Temp 97.8 F 10/02/24 09:53 Pulse 49 L 10/02/24 09:53 Resp 14 10/02/24 09:53 BP 134/70 10/02/24 09:53 Pulse Ox 97 10/02/24 09:53 Oxygen Delivery Method Room Air 10/02/24 09:53 BMI result Body Mass Index 31.6 Tobacco/Smoking Status: Tobacco use Status Tobacco use date assessed 08/28/24 10/02/24 09:55 Patient Tobacco Use Status Never used Tobacco 10/02/24 09:55 e-Cigarette/Vaping Use Never Used 10/02/24 09:55 Thrive Assessment: Date of Thrive Assessment Date Thrive assessed 08/28/24 10/02/24 09:55 Currently or been in a relationship where the following occur: No concerns reported Const General: well developed; No acute distress Nutritional Appearance: well nourished Orientation/consciousness: patient oriented x3 [facility] Head: Yes normocephalic and Yes atraumatic Eyes General: appearance normal, both eyes and all related structures Pupils: Equal, round and reactive pupils present EOM: EOMs intact bilaterally Resp Effort & Inspection: normal respiratory effort Neuro General: patient oriented x3 and gait normal Cranial nerves: Yes Equal, round and reactive pupils present Psych Affect: normal affect Coding Level of Care Code Est Pt Level 4 (76993) Diagnoses Hypertension I10 Hyperaldosteronism E26.9 Mild anemia D64.9 Elevated fasting blood sugar R73.01 Low HDL (under 40) E78.6 Assessment & Plan Assessment & Plan (1) Hypertension: Code(s): I10 - Essential (primary) hypertension Category: Medical Plan: Blood?pressure?remains?controlled.??Goal?is?less?than?140/90 Continue?current?medication?regimen (2) Hyperaldosteronism: Code(s): E26.9 - Hyperaldosteronism, unspecified Category: Medical (3) Mild anemia: Code(s): D64.9 - Anemia, unspecified Category: Medical Plan: Mild?anemia Denies?any?blood?in?stool?or?bleeding Will?recheck?this?prior?to?next?visit (4) Elevated fasting blood sugar: Code(s): R73.01 - Impaired fasting glucose Category: Medical Plan: Mildly?elevated?fasting?blood?sugar Will?check?A1c?with?next?blood?draw (5) Low HDL (under 40): Code(s): E78.6 - Lipoprotein deficiency Category: Medical Plan: Patient?is?exercising?frequently. LDL?cholesterol?is?within?normal?range Encouraged?increased?[place]?3?fatty?acids?diet Will?continue?monitor Plan He?will?return?in?about?3-4?months?to?follow-up?hypertension,?mild?anemia, low?HDL?and?mildly?elevated?fasting?blood?sugar Orders: Orders Vitamin B12 and Folate Today D64.9 - Anemia, unspecified, E53.8 - Deficiency of other specified B group vitamins Microalbumin, Random (w Creat) Today I10 - Essential (primary) hypertension, I1A.0 - Resistant hypertension Hemoglobin A1c Today R73.01 - Impaired fasting glucose Lipid Panel Today E78.6 - Lipoprotein deficiency, Z00.00 - Encounter for general adult medical examination without abnormal findings Complete Blood Count Auto Diff Today D64.9 - Anemia, unspecified, Z00.00 - Encounter for general adult medical examination without abnormal findings IRON PROFILE Today D64.9 - Anemia, unspecified Reticulocyte Count Today D64.9 - Anemia, unspecified Ferritin Today D64.9 - Anemia, unspecified Basic Metabolic Panel Fasting Today E78.6 - Lipoprotein deficiency
[2024-10-02 09:53] VITALS: BP 134/70; PULSE 49; RESP 14; TEMP 36.6; O2SAT 97; BMI 31.6
--- OUTSIDE RECORDS SUMMARY | 2024-10-02 10:23 | XMS_ITS | Clinical Summary ---
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
== END 2024-10-02 10:21 | disposition home or self-care (01) ==
LOC: HO.HMCFM 09:27
PROVIDERS: PCP Family Medicine; Visit Provider Family Medicine
DX: I10 Essential (primary) hypertension (principal); E26.9 Hyperaldosteronism, unspecified; D64.9 Anemia, unspecified; R73.01 Impaired fasting glucose; E78.6 Lipoprotein deficiency

== ENCOUNTER → 2024-10-02 09:27 | Outpatient (BNVA) | payer OTHER, SELFPAY | PROVIDERS: PCP Family Medicine; Visit Provider Family Medicine | DX: Z13.89 Encounter for screening for other disorder (principal) ==

== ENCOUNTER 2024-11-12 08:26 | Outpatient (AMB) | payer OTHER, SELFPAY ==
[2024-11-12 08:33] VITALS: BP 140/78; PULSE 53; O2SAT 98; BMI 31.7
--- NOTE | 2024-11-12 08:33 | HO.NEPHOV ---
Vital Signs 11/12/24 08:33 Height 5 ft 10 in Weight 221 lb BMI 31.7 BP 140/78 H Blood Pressure Location Lt brachial Position Sitting Pulse 53 Pulse Source Pulse Oximeter Pulse Oximetry (%) 98 Oxygen Delivery Method Room Air Intake Visit Reasons: 3 mnth f/u appt- LVM Assurance Senior Manager Insurance Required: No Accompanied by: Self / Same As Patient Allergies Sulfa (Sulfonamide Antibiotics) Allergy (Unknown, Verified 11/12/24 08:34) Itching Medication List - Last Reconciled 11/12/24 by Augusto Lovett MD allopurinol 200 mg (2 x 100 mg) PO DAILY 90 days amlodipine-olmesartan 10-40 mg 1 tab PO DAILY 90 days carvedilol 6.25 mg PO BID olopatadine 0.1% drps ophthalmic (eye) omeprazole 20 mg PO DAILY spironolactone 25 mg PO BID HPI Comments Details: 58-year-old man with hypertension and proteinuria. He had persistent hypokalemia while on chlorthalidone. Potassium was 2.7. He was given potassium supplementation. At present he has no new complaints. 04/30/2024. Events noted. He is currently on potassium supplementation along with spironolactone. Cardiac workup in progress. Despite spironolactone and potassium supplementation serum potassium is relatively low around 3.9 mg/dL. He continues to have mild alkalosis with a total CO2 of 30 which is spontaneous. This raises the suspicion for hyperaldosteronism. 05/28/2024. As planned he has stopped spironolactone and olmesartan underwent lab testing. Serum aldosterone and plasma renin activity was tested. He has restarted aldosterone and olmesartan after the lab tests. Home blood pressure readings have been acceptable. No new issues today. 07/02/24 Home BP is still around [address] adrenals - not done yet CTA of coronaries- normal c/o epigastric pain 08/06/2024. Overall doing well. Tolerating medications. No new issues. 11/12/24 59-year-old male presenting for the follow-up of hypertension and support with present health concerns. The patient?s usual blood pressure readings are well-controlled at 132/70 mmHg at home, despite occasional elevated readings in medical settings due to anxiety. He notices no adverse symptoms related to blood pressure variability. One week prior to this visit, the patient experienced eye discomfort attributed to allergies. He promptly sought care from an ratchet setter and was prescribed medication to alleviate symptoms, which resolved without further complications. Furthermore, the patient's gout remains stable with no recent episodes requiring intervention. Current therapies effectively manage his health conditions, and there are no reports of adverse symptoms or new health issues. [facility] Family History Father No problems noted. Mother No problems noted. 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 Lungs entry equal no rales. Heart S1-S2 heard no gallop or rub. Abdomen soft nontender. Neuro alert awake oriented. No asterixis. Extremities no edema. Results Reviewed Nephrology Results: Hgb 13.0 g/dl (14.0-18.0) L 09/24/24 WBC 5.7 X10*3/uL (4.8-10.8) 09/24/24 Plt Count 272 X10*3/uL (160-400) 09/24/24 Sodium 139 mmol/L (135-145) 09/24/24 Potassium 4.4 mmol/L (3.3-5.1) 09/24/24 Chloride 110 mmol/L (96-108) H 09/24/24 Carbon Dioxide 24 mmol/L (22-29) 09/24/24 BUN 17 mg/dL (9-16) H 09/24/24 Creatinine 1.17 mg/dL (0.5-1.4) 09/24/24 Calcium 9.2 mg/dL (8.4-10.2) 09/24/24 Urine Protein 30 (1+) mg/dL (Neg-Trace) H 09/24/24 Urine Creatinine 270.60 mg/dL 09/24/24 Assessment & Plan Assessment & Plan (1) Hypertension: Code(s): I10 - Essential (primary) hypertension Category: Medical (2) Proteinuria: Code(s): R80.9 - Proteinuria, unspecified Category: Medical (3) Hypokalemia: Code(s): E87.6 - Hypokalemia Category: Medical (4) Resistant hypertension: Code(s): I1A.0 - Resistant hypertension Category: Medical Plan Middle aged man with longstanding hypertension with proteinuria. Urine protein creatinine ratio was 0.25. Most likely due to underlying hypertensive kidney disease. Pepe has hypokalemia which is currently unprovoked. Also has mild alkalosis without diuretics. This raised suspicion for hyperaldosteronism. serum aldosterone was elevated PA/PRA ratio was elevated at 186. At present blood pressure well controlled. Continue current medications. Watch blood pressure at home CT scan did not show any adrenal nodules or lesions. Since there was no specific lesions there is no indication for adrenal vein sampling at this time. BP is well controlled based on home readings. Renal function and Potassium are normal. Encouraged to stay on low salt diet Increase PO fluid intake No changes in anti hypertensive regimen . Orders: Orders Basic Metabolic Panel 4 Months I10 - Essential (primary) hypertension Coding Level of Care Code Est Pt Level 4 (44206) Diagnoses Hypertension I10 Proteinuria R80.9 Hypokalemia E87.6 Resistant hypertension I1A.0
--- OUTSIDE RECORDS SUMMARY | 2024-11-12 08:35 | XMS_ITS | Clinical Summary ---
Author Organization [facility] ity Address [address] [place] [address] Care Team Providers Care Labor Relations Officer Name Role Phone Unavailable Primary Care Provider [...]
== END 2024-11-12 08:48 | disposition home or self-care (01) ==
LOC: HO.HKAS 08:27
PROVIDERS: PCP Family Medicine; Visit Provider Internal Medicine Hypertension Specialist
DX: I10 Essential (primary) hypertension (principal); R80.9 Proteinuria, unspecified; E87.6 Hypokalemia; I1A.0 Resistant hypertension
CPT/HCPCS: 99214

== ENCOUNTER 2024-12-11 07:42 | Outpatient (REF) | payer OTHER, SELFPAY ==
--- OUTSIDE RECORDS SUMMARY | 2024-12-11 07:45 | XMS_ITS | Patient Health Record ---
Author Organization [facility] Address [address] [place] [address] Care Team Providers Care Janitorial Tech Name Role Phone Beryl(inactive) Hernandez MOORE Primary Care Provider U Jewel Figueredo Unavailable [phone] Reason For Referral No Information Medications Medication SIG (Take, Route, Frequency, Duration) Notes Start Date End Date Status hydroCHLOROthiazide 25 MG 1 tablet Orally Once a day Active Suprep Bowel Prep 1 kit as directed Oral ly as directed for 1 dose 04/13/2015 Active Cartia XT 300 MG 1 capsule Orally Onc e a day Active Problems Problem Type SNOMED Code ICD Code Onset Dates Problem Status W/U Status Risk Notes Problem [id number] Encounter for screening for malignant neoplasm of colon (Z12.11) Active confirmed Problem 49881816 Preprocedural examination (Z01.818) Active confirmed Problem 252517991 History of long-term use of multiple prescription drugs (Z92.29) Active confirmed Plan Of Treatment Future Test Test Name Order Date COLONOSCOPY 04/09/2015 Insurance Providers Payer Name Payer Address Payer Phone Subscriber Number Group Number Insured Name Patient Relationship to Insured Coverage Start Date Coverage End Date [employer] (NEEDS REFERRA L) [address] [place] [phone] [id number] NINA LANCASTER Self - patient is the insured Medical (General) History Medical History History ICD Code HTN Denies [place],DM,CVA,Lung disease,renal dise ase
--- OUTSIDE RECORDS SUMMARY | 2024-12-11 07:45 | XMS_ITS | Clinical Summary ---
Author Organization [facility] ity Address [address] [place] [address] Care Team Providers Care Hospital Corpsman Name Role Phone Unavailable Primary Care Provider [...] 2023-2 5 season) 2024 Influenza Vaccine (#1) 2025 RSV Immunization Adult Patie nts (1 [...]
[2024-12-11 07:56] LABS: MANUAL DIFF FLAG NO
[2024-12-11 08:11] LABS: Hematocrit 40.0 % (42.0-52.0); Hemoglobin 14.0 g/dl (14.0-18.0); Imm Gran Abs Auto 0.01 X10*3/uL (0.00-0.03); Imm Gran Pct Auto 0.2 % (0.0-0.4); Lymphocytes Absolute Auto 3.1 X10*3/uL (1.2-4.9); Mean Corpuscular HGB Conc 35.0 g/dl (31.0-36.0); Mean Corpuscular Hemoglobin 30.3 pg (27.0-33.0); Mean Corpuscular Volume 86.6 fL (80.0-98.0); NRBC Abs Auto 0.000 X10*3/uL (0.0-0.012); NRBC Pct Auto 0.0 /100WBC (0.0-0.2); Platelet Count 273 X10*3/uL (160-400); Red Blood Count 4.62 X10*6/uL (4.60-5.80); Reticulocytes Absolute 0.089 X10*6/uL (0.026-0.095); White Blood Count 6.1 X10*3/uL (4.8-10.8)
[2024-12-11 08:14] LABS: Appearance Urine Clear; Glucose Urine UA Negative (Negative); PH 5.5 (5.0-9.0); Specific Gravity - Urine 1.025 (1.005-1.025); UMIC TRIGGER UA YES
[2024-12-11 08:35] LABS: Hemoglobin A1C 158.6753 umol/L; Total Hemoglobin (HGBA1C) 3682.8891 umol/L
[2024-12-11 09:02] LABS: Anion Gap 11 (12-20); Blood Urea Nitrogen 19 mg/dL (9-16); Calcium 9.3 mg/dL (8.4-10.2); Carbon Dioxide 24 mmol/L (22-29); Chloride 108 mmol/L (96-108); Cholesterol 138 mg/dL (<200); Estimated Glomerular Filt Rate 56; HDL Cholesterol 29 mg/dL (>40); Iron 88 mcg/dL (45-160); Percent Iron Saturation 27 % (15-50); Potassium 4.6 mmol/L (3.3-5.1); Sodium 138 mmol/L (135-145); Total Iron Binding Capacity 321 mcg/dL (228-428); Triglycerides 75 mg/dL (<150); Unsaturated Iron Binding 233 ug/dL
[2024-12-11 09:15] LABS: Ferritin 28 ng/mL (20-250)
[2024-12-11 09:18] LABS: Folate 12.7 ng/mL (> or = 4.0); Vitamin B12 398 pg/mL (200-900)
[2024-12-11 09:27] LABS: Microalbum/Creatinine Ratio Ur 27.0 ug/mg cr (<30)
== END 2024-12-11 07:43 | disposition home or self-care (01) ==
LOC: HO.LAB 07:42
PROVIDERS: PCP Family Medicine; Visit Provider Family Medicine
DX: Z00.00 Encounter for general adult medical examination without abnormal findings (principal); R73.01 Impaired fasting glucose; I1A.0 Resistant hypertension; E78.6 Lipoprotein deficiency; D64.9 Anemia, unspecified; E53.8 Deficiency of other specified B group vitamins; I10 Essential (primary) hypertension
CPT/HCPCS: 36415; 80048; 80061; 81001; 82043; 82570; 82607; 82728; 82746; 83036; 83540; 85025; 85045

== ENCOUNTER 2024-12-17 08:28 | Outpatient (AMB) | payer OTHER, SELFPAY ==
--- NOTE | 2024-12-17 08:30 | A.OFFPC_ITS ---
Vital Signs 12/17/24 08:37 Height 5 ft 10 in Weight 217 lb 6 oz BMI 31.2 BP 129/61 Blood Pressure Location Lt brachial Position Sitting Respiration 16 Pulse 52 Pulse Source Pulse Oximeter Temp 98.2 F Temp Source Oral Pulse Oximetry (%) 98 Oxygen Delivery Method Room Air Intake Visit Reasons: f/u HTN Intake Note: patient here for follow up on HTN Academic Hospitalist Required: No Allergies Sulfa (Sulfonamide Antibiotics) Allergy (Unknown, Verified 12/17/24 08:35) Itching Medication List - Last Reconciled 12/17/24 by Tod Monte MD allopurinol 200 mg (2 x 100 mg) PO DAILY 90 days amlodipine-olmesartan 10-40 mg 1 tab PO DAILY 90 days carvedilol 6.25 mg PO BID spironolactone 25 mg PO BID Tobacco use date assessed: 12/17/24 Dental Screening Dental Screen Date: 12/17/24 Did you have a dental visit in the last 12 months?: Yes Did you have a dental problem in the last 6 months where you did not have access to dental care?: No Was dental information given to patient?: Patient has dentist HPI f/u HTN HPI Details 59 y/o male presents to f/u hypertension , mild anemia, low HDL and mildly elevated FBS. Blood pressure today 129/61, 52p. He is on amlodipine-olmesartan 10-40 mg daily, carvedilol 6.25mg b.i.d, spironolactone 25 mg b.i.d. Labs drawn 12/11/24. Reviewed labs with pt. A1c 6.1%. Triglycerides 75. TC 138. LDL 94. HDL low at 29. Mild anemia has improved. Has been following up with nephrology. HPI Comments History of Present Illness Details Documentation assistance for Tod Monte MD, was provided by John Simeon,? Branch Operation Evaluation Manager on 12/17/2024 at 9:08 AM HERNAN. I, Dr. Monte, have read, observed, and verified documentation. [facility] Family History Father No problems noted. Mother No problems noted. 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 Current occupational exposures/hazards: No Cognitive needs: No Hearing needs: No Vision needs: No Questionnaire Thrive Questionnaire Date Thrive assessed: 07/30/24 I am a: Patient What is your living situation today?: I have a steady place to live Within the past 12 months, did the food you bought not last and you didn't have the money to get more?: Never true Within the past 12 months, did you worry whether your food would run out before you got money to buy more?: Never true Do you have trouble paying for medicines?: No Do you have trouble getting transportation to medical appointments?: No Do you have trouble paying your heating and electricity bill?: No Do you have trouble taking care of your child, family member or friend?: No Do you have trouble with day-to-day activities such as bathing, preparing meals, shopping, managing finances, etc.?: No Are you currently unemployed and looking for a job?: No Are you interested in more education?: Yes Please select the resources that you would like help with: None Currently or been in a relationship where the following occur: No concerns reported THRIVE Score: 0 ASHKAN-7 AMB Questionnaire ASHKAN-7 Date ASHKAN - 7 assessed: 08/28/24 Source: Developed by Drs. Jewel De Oliveira, Madeline Magana, Kiel Pantoja and colleagues, with an educational den from [employer]. Review of Systems Const Denies chills, Denies fatigue, Denies fever(s), Denies headache(s) and Denies weakness ENT Denies dizziness and Denies headache(s) Card Denies dyspnea Resp Denies cough, Denies dyspnea, Denies wheezing and Denies other (shortness of breath) Musc Denies numbness and Denies tingling Neuro Denies dizziness, Denies headache(s), Denies numbness, Denies tingling and Denies weakness Psych Denies anxiety and Denies depression Endo Denies fatigue Aller/Immun Denies wheezing Physical exam (Primary Care) Vital Signs: Last Vital Signs Temp 98.2 F 12/17/24 08:37 Pulse 52 12/17/24 08:37 Resp 16 12/17/24 08:37 BP 129/61 12/17/24 08:37 Pulse Ox 98 12/17/24 08:37 Oxygen Delivery Method Room Air 12/17/24 08:37 BMI result Body Mass Index 31.2 Tobacco/Smoking Status: Tobacco use Status Tobacco use date assessed 12/17/24 12/17/24 08:42 Patient Tobacco Use Status Never used Tobacco 12/17/24 08:32 e-Cigarette/Vaping Use Never Used 12/17/24 08:32 Thrive Assessment: Date of Thrive Assessment Date Thrive assessed 07/30/24 12/17/24 08:32 Currently or been in a relationship where the following occur: No concerns reported Const General: well developed; No acute distress Nutritional Appearance: well nourished Orientation/consciousness: patient oriented x3 HENMT Head: Yes normocephalic and Yes atraumatic Eyes General: appearance normal, both eyes and all related structures Pupils: Equal, round and reactive pupils present EOM: EOMs intact bilaterally Resp Effort & Inspection: normal respiratory effort Auscultation: clear to auscultation bilaterally Cardio Rate: regular rate Rhythm: regular rhythm Heart sounds: S1 normal heart sound present, S2 normal heart sound present, no gallops, no murmurs and no rubs Neuro General: patient oriented x3 and gait normal Cranial nerves: Yes Equal, round and reactive pupils present Psych Affect: normal affect Coding Level of Care Code Est Pt Level 4 (72197) Diagnoses Essential hypertension I10 Low HDL (under 40) E78.6 Pre-diabetes R73.03 Mild anemia D64.9 Renal insufficiency N28.9 Screening for colon cancer Z12.11 Assessment & Plan Assessment & Plan (1) Essential hypertension: Code(s): I10 - Essential (primary) hypertension Category: Medical Plan: Hyperaldosteronism and followed by Nephrology Blood pressure is well controlled on current medication regimen. Watch salt and sodium and continue current medications (2) Low HDL (under 40): Code(s): E78.6 - Lipoprotein deficiency Category: Medical Plan: Still has low HDL though his LDL cholesterol is at goal. Using fish oil and he can increase this Continue exercise (3) Pre-diabetes: Code(s): R73.03 - Prediabetes Category: Medical Plan: A1c in pre diabetes range Encouraged a diet low in sugars and starches Will continue to monitor (4) Mild anemia: Code(s): D64.9 - Anemia, unspecified Category: Medical Plan: Improved and nearly in normal range Will continue to monitor (5) Renal insufficiency: Code(s): N28.9 - Disorder of kidney and ureter, unspecified Category: Medical Plan: Mild renal insufficiency History of acute kidney injury and protein urea and followed by Nephrology. Hydrate well Keep blood pressure well controlled Will continue to follow Follow-up with nephrology as recommended (6) Screening for colon cancer: Code(s): Z12.11 - Encounter for screening for malignant neoplasm of colon Category: Medical Plan: Referred to Gastroenterology at [place]
[2024-12-17 08:37] VITALS: BP 129/61; PULSE 52; RESP 16; TEMP 36.8; O2SAT 98; BMI 31.2
--- OUTSIDE RECORDS SUMMARY | 2024-12-17 08:40 | XMS_ITS | Clinical Summary ---
Author Organization [facility] ity Address [address] [place] [address] Care Team Providers Care Cad Intern Name Role Phone Unavailable Primary Care Provider [...]
--- OUTSIDE RECORDS SUMMARY | 2024-12-17 08:40 | XMS_ITS | Patient Health Record ---
Author Organization [facility] Address [address] [place] [address] Care Team Providers Care Acoustic Warfare Analyst Name Role Phone Beryl(inactive) Hernandez MOORE Primary Care Provider U Jewel Figueredo Unavailable [phone] Reason For Referral No Information Medications Medication [...] Problem Status W/U Status Risk Notes Problem [id number] Encounter for screening for malignant neoplasm of colon (Z12.11) Active confirmed Problem 40015230 Preprocedural examination (Z01.818) Active confirmed Problem 490375479 History of long-term use of multiple prescription drugs (Z92.29) Active confirmed Plan Of Treatment Future Test Test Name Order Date COLONOSCOPY 04/09/2015 Insurance Providers Payer Name Payer Address Payer Phone Subscriber Number Group Number Insured Name Patient Relationship to Insured Coverage Start Date Coverage End Date [employer] (NEEDS REFERRA L) [address] [place] [phone] [id number] NINA LANCASTER Self - patient is the insured Medical (General) History Medical History History ICD Code HTN Denies AL,DM,CVA,Lung disease,renal dise ase
== END 2024-12-17 09:22 | disposition home or self-care (01) ==
LOC: HO.HMCFM 08:29
PROVIDERS: PCP Family Medicine; Visit Provider Family Medicine
DX: I10 Essential (primary) hypertension (principal); E78.6 Lipoprotein deficiency; R73.03 Prediabetes; D64.9 Anemia, unspecified; N28.9 Disorder of kidney and ureter, unspecified; Z12.11 Encounter for screening for malignant neoplasm of colon

== ENCOUNTER 2025-01-21 08:26 | Outpatient (AMB) | payer OTHER, SELFPAY ==
--- OUTSIDE RECORDS SUMMARY | 2025-01-21 08:38 | XMS_ITS | Patient Health Record ---
Author Organization [facility] Address [address] [place] [address] Care Team Providers Care Tanker Driver Name Role Phone Beryl(inactive) Hernandez MOORE Primary Care Provider U Jewel Figueredo Unavailable [phone] Reason For Referral No Information Medications Medication [...] Problem Status W/U Status Risk Notes Problem 527918661 Encounter for screening for malignant neoplasm of colon (Z12.11) Active confirmed Problem 01731874 Preprocedural examination (Z01.818) Active confirmed Problem 587694153 History of long-term use of multiple prescription drugs (Z92.29) Active confirmed Plan Of Treatment Future Test Test Name Order Date COLONOSCOPY 04/09/2015 Insurance Providers Payer Name Payer Address Payer Phone Subscriber Number Group Number Insured Name Patient Relationship to Insured Coverage Start Date Coverage End Date [employer] (NEEDS REFERRA L) [address] [place] [phone] [id number] NINA LANCASTER Self - patient is the insured Medical (General) History Medical History History ICD Code HTN Denies [place],DM,CVA,Lung disease,renal dise ase
--- OUTSIDE RECORDS SUMMARY | 2025-01-21 08:38 | XMS_ITS | Clinical Summary ---
Author Organization [facility] ity Address [address] [place] [address] Care Team Providers Care Assistant Art Director Name Role Phone Unavailable Primary Care Provider [...] Vaccine ( - 2023-2 5 season) 2024 Depression Screening 06/11/2024 Influenza Vaccine (#1) 2025 RSV Immunization Adult [...]
--- NOTE | 2025-01-21 08:48 | A.OFFVIS_ITS ---
Vital Signs 01/21/25 08:49 Height 5 ft 10 in Weight 213 lb 13.574 oz BMI 30.7 BP 126/68 Blood Pressure Location Lt brachial Position Sitting Pulse 46 L Pulse Source Monitor Intake Visit Reasons: 6m follow up Allergies Sulfa (Sulfonamide Antibiotics) Allergy (Unknown, Verified 12/17/24 08:35) Itching Medication List - Last Reconciled 01/21/25 by Catracho Siddiqui MD allopurinol 200 mg PO DAILY PRN amlodipine-olmesartan 10-40 mg 1 tab PO DAILY 90 days carvedilol 6.25 mg PO BID spironolactone 25 mg PO BID HPI Comments Details: Pepe returns for follow-up. Patient has longstanding hypertension, but not well controlled previously. He also has chronic hypokalemia. Currently, on a combination of amlodipine, olmesartan, metoprolol and spironolactone. No previous history of any coronary disease or myocardial infarction or cardiomyopathy. Overall, he states he feels good. Blood pressure actually seems better. [facility] Family History Father No problems noted. Mother No problems noted. 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 Current occupational exposures/hazards: No Cognitive needs: No Hearing needs: No Vision needs: No Review of Systems Const Denies weakness ENT Denies dizziness Card Denies chest pain, Denies chest pain with activity, Denies syncope, Denies rapid heart rate, Denies pedal edema, Denies edema, Denies leg edema, Denies lightheadedness, Denies palpitations, Denies dyspnea, Denies dyspnea on exertion and Denies orthopnea Resp Denies cough, Denies dyspnea and Denies dyspnea on exertion GI Denies hematochezia and Denies change in stool character Musc Denies abnormal gait, Denies muscle cramps, Denies muscle weakness, Denies numbness, Denies radiating pain into limb and Denies tingling Neuro Denies abnormal gait, Denies dizziness, Denies syncope, Denies numbness, Denies tingling and Denies weakness Endo Denies palpitations Physical Exam Vital Signs: Last Vital Signs Pulse 46 L 01/21/25 08:49 BP 126/68 01/21/25 08:49 BMI result Body Mass Index 30.7 Const General: comfortable and no acute distress Orientation/consciousness: patient oriented x3 HEENT Other: Unremarkable Head: Yes normal to inspection Neck Neck: Yes normal visual inspection Chest Chest palpation & inspection: normal inspection of the chest Resp Auscultation: clear to auscultation bilaterally Cardio Palpation: normal PMI Heart sounds: S1 normal heart sound present, S2 normal heart sound present, no gallops, no murmurs and no rubs GI Palpation (GI): Soft to palpation Back/Spine/Pelvis Other: unremarkable Skin General skin exam: no rashes or lesions noted Neuro General: patient oriented x3 Extrem General: Yes normal to inspection Psych Mental Status: mental status grossly normal Office Procedures EKG Details: EKG shows sinus bradycardia at 46/Min; left ventricular hypertrophy with strain pattern; [place]. [id number], Complete Assessment & Plan Assessment & Plan (1) Resistant hypertension: Code(s): I1A.0 - Resistant hypertension Category: Medical (2) Hyperaldosteronism: Code(s): E26.9 - Hyperaldosteronism, unspecified Category: Medical Plan Echocardiogram with hyperdynamic LVEF, mild left ventricular hypertrophy and advanced diastolic dysfunction with mild pulmonary hypertension. Suspect echocardiographic findings are related to poorly controlled hypertension. Coronary CTA shows no significant CAD. Overall, second-degree hypertension related to primary hyperaldosteronism. With regard to management, his blood pressure is reasonably well controlled on a combination of Carvedilol, Amlodipine, Olmesartan, Spironolactone. Hence can continue the same for now. EKG changes related to hypertension as there is no evidence of coronary disease on CTA. We will see him back in about 6 months' time. He will call us with any interim concerns. Discussion Notes I discussed with the patient that his EKG is abnormal due to long-standing hypertension, but with improved blood pressure, we hope to see stabilization. I recommended a follow-up echocardiogram to monitor his cardiac function and advised him to continue with his current dietary regimen and medications. Patient was informed and verbally consented to the use of an ambient scribe for clinic note documentation during this visit. Orders: Orders CA echo transthoracic complete 6 Months Catracho Siddiqui MD I1A.0 - Resistant hypertension Medications: Changed From allopurinol 200 mg (2 x 100 mg) PO DAILY 90 days 180 tabs 2RF To allopurinol 200 mg PO DAILY PRN Tod Mnote MD Patient Instructions: - Continue with current dietary changes to manage blood pressure. - Take medications as prescribed for adrenal gland disorder. - Follow up in six months for an echocardiogram and review of cardiac function. Coding Level of Care Code Est Pt Level 4 (33866) Complex EM visit Add On G2211 Diagnoses Resistant hypertension I1A.0 Hyperaldosteronism E26.9 CPT Codes EKG - CPT: 77982-Mjukhrvzyxdzsmkth, Complete ([id number])
[2025-01-21 08:49] VITALS: BP 126/68; PULSE 46; BMI 30.7
== END 2025-01-21 09:12 | disposition home or self-care (01) ==
LOC: HO.HCS 08:27
PROVIDERS: PCP Family Medicine; Visit Provider Internal Medicine
DX: I1A.0 Resistant hypertension (principal); E26.9 Hyperaldosteronism, unspecified
CPT/HCPCS: 93010; 99214

== ENCOUNTER → 2025-01-21 08:26 | Outpatient (BNVA) | payer OTHER, SELFPAY | PROVIDERS: PCP Family Medicine; Visit Provider Internal Medicine | DX: I1A.0 Resistant hypertension (principal) | CPT/HCPCS: 93005 ==

== ENCOUNTER 2025-01-29 06:11 | Outpatient (REF) | payer OTHER, SELFPAY ==
--- OUTSIDE RECORDS SUMMARY | 2025-01-29 06:14 | XMS_ITS | Patient Health Record ---
Author Organization [facility] Address [address] [place] [address] Care Team Providers Care Credit Coordinator Name Role Phone Beryl(inactive) Hernandez MOORE Primary Care Provider U Jewel Figueredo Unavailable [phone] Reason For Referral No Information Medications Medication [...] Problem Status W/U Status Risk Notes Problem 031912252 Encounter for screening for malignant neoplasm of colon (Z12.11) Active confirmed Problem 76418185 Preprocedural examination (Z01.818) Active confirmed Problem 361375734 History of long-term use of multiple prescription drugs (Z92.29) Active confirmed Plan Of Treatment Future Test Test Name Order Date COLONOSCOPY 04/09/2015 Insurance Providers Payer Name Payer Address Payer Phone Subscriber Number Group Number Insured Name Patient Relationship to Insured Coverage Start Date Coverage End Date [employer] (NEEDS REFERRA L) [address] [place] [phone] [id number] NINA LANCASTER Self - patient is the insured Medical (General) History Medical History History ICD Code HTN Denies [place],DM,CVA,Lung disease,renal dise ase
--- OUTSIDE RECORDS SUMMARY | 2025-01-29 06:14 | XMS_ITS | Clinical Summary ---
Author Organization [facility] ity Address [address] [place] [address] Care Team Providers Care Cut And Print Machine Operator Name Role Phone Unavailable Primary [...]
[2025-01-29 06:36] LABS: MANUAL DIFF FLAG NO
[2025-01-29 07:18] LABS: Hematocrit 38.0 % (42.0-52.0); Hemoglobin 13.3 g/dl (14.0-18.0); Imm Gran Abs Auto 0.01 X10*3/uL (0.00-0.03); Imm Gran Pct Auto 0.1 % (0.0-0.4); Lymphocytes Absolute Auto 3.5 X10*3/uL (1.2-4.9); Mean Corpuscular HGB Conc 35.0 g/dl (31.0-36.0); Mean Corpuscular Hemoglobin 30.4 pg (27.0-33.0); Mean Corpuscular Volume 87.0 fL (80.0-98.0); NRBC Abs Auto 0.000 X10*3/uL (0.0-0.012); NRBC Pct Auto 0.0 /100WBC (0.0-0.2); Platelet Count 281 X10*3/uL (160-400); Red Blood Count 4.37 X10*6/uL (4.60-5.80); White Blood Count 7.3 X10*3/uL (4.8-10.8)
[2025-01-29 07:18] LABS: Appearance Urine Clear; Glucose Urine UA Negative (Negative); PH 5.5 (5.0-9.0); Specific Gravity - Urine 1.020 (1.005-1.025)
[2025-01-29 07:43] LABS: Microalbum/Creatinine Ratio Ur 48.3 ug/mg cr (<30)
[2025-01-29 07:52] LABS: Alanine Aminotransferase 32 U/L (0-40); Albumin Level 4.0 g/dL (3.5-5.0); Alkaline Phosphatase 115 U/L (39-117); Anion Gap 12 (12-20); Aspartate Amino Transferase 39 U/L (5-37); Blood Urea Nitrogen 21 mg/dL (9-16); Calcium 9.2 mg/dL (8.4-10.2); Carbon Dioxide 23 mmol/L (22-29); Chloride 110 mmol/L (96-108); Cholesterol 151 mg/dL (<200); Estimated Glomerular Filt Rate 60; HDL Cholesterol 30 mg/dL (>40); Potassium 4.4 mmol/L (3.3-5.1); Sodium 141 mmol/L (135-145); Total Protein 7.1 g/dL (6.5-8.0); Triglycerides 99 mg/dL (<150)
[2025-01-29 07:58] LABS: Hemoglobin A1C 163.1874 umol/L; Total Hemoglobin (HGBA1C) 3511.7062 umol/L
== END 2025-01-29 06:12 | disposition home or self-care (01) ==
LOC: HO.LAB 06:11
PROVIDERS: PCP Family Medicine; Visit Provider Family Medicine
DX: Z00.00 Encounter for general adult medical examination without abnormal findings (principal); I10 Essential (primary) hypertension; R73.01 Impaired fasting glucose; E26.9 Hyperaldosteronism, unspecified
CPT/HCPCS: 36415; 80053; 80061; 81003; 82043; 82570; 83036; 85025

== ENCOUNTER 2025-02-04 08:28 | Outpatient (AMB) | payer OTHER, SELFPAY ==
--- NOTE | 2025-02-04 08:32 | A.OFFPC_ITS ---
Vital Signs 02/04/25 08:35 Height 5 ft 10 in Weight 217 lb BMI 31.1 BP 130/76 Blood Pressure Location Rt brachial Position Sitting Respiration 16 Pulse 55 Pulse Source Pulse Oximeter Temp 97.9 F Temp Source Temporal Artery Scan Pulse Oximetry (%) 98 Oxygen Delivery Method Room Air Intake Visit Reasons: f/u HTN, mild anemia Intake Note: Pepe presents in the office today to follow up on his hypertension and anemia. Allergies Sulfa (Sulfonamide Antibiotics) Allergy (Unknown, Verified 02/04/25 08:34) Itching Medication List - Last Reconciled 02/04/25 by Tod Monte MD allopurinol 200 mg PO DAILY PRN amlodipine-olmesartan 10-40 mg 1 tab PO DAILY 90 days carvedilol 6.25 mg PO BID spironolactone 25 mg PO BID Tobacco use date assessed: 02/04/25 Dental Screening Dental Screen Date: 02/04/25 Did you have a dental visit in the last 12 months?: Yes Did you have a dental problem in the last 6 months where you did not have access to dental care?: No Was dental information given to patient?: Patient has dentist HPI f/u HTN, mild anemia HPI Details 59 y/o male presents to f/u HTN, anemia, chronic conditions. BP today 130/76, 55p. He is on amlodipine-Olmesartan 10-40 mg, carvedilol 6.25mg b.i.d, spironolactone 25mg b.i.d. H&H slightly low but steady Likely secondary to mild renal insufficiency. A1c in pre-diabetes range. [facility] Family History Father No problems noted. Mother No problems noted. 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 Current occupational exposures/hazards: No Cognitive needs: No Hearing needs: No Vision needs: No Questionnaire Thrive Questionnaire Date Thrive assessed: 07/30/24 I am a: Patient What is your living situation today?: I have a steady place to live Within the past 12 months, did the food you bought not last and you didn't have the money to get more?: Never true Within the past 12 months, did you worry whether your food would run out before you got money to buy more?: Never true Do you have trouble paying for medicines?: No Do you have trouble getting transportation to medical appointments?: No Do you have trouble paying your heating and electricity bill?: No Do you have trouble taking care of your child, family member or friend?: No Do you have trouble with day-to-day activities such as bathing, preparing meals, shopping, managing finances, etc.?: No Are you currently unemployed and looking for a job?: No Are you interested in more education?: Yes Please select the resources that you would like help with: None Currently or been in a relationship where the following occur: No concerns reported THRIVE Score: 0 ASHKAN-7 AMB Questionnaire ASHKAN-7 Date ASHKAN - 7 assessed: 08/28/24 Source: Developed by Drs. Jewel De Oliveira, Madeline Magana, Kiel Pantoja and colleagues, with an educational den from [employer]. Review of Systems Const Denies chills, Denies fatigue, Denies fever(s), Denies headache(s) and Denies weakness ENT Denies dizziness and Denies headache(s) Card Denies dyspnea Resp Denies cough, Denies dyspnea, Denies wheezing and Denies other (shortness of breath) Musc Denies numbness and Denies tingling Neuro Denies dizziness, Denies headache(s), Denies numbness, Denies tingling and Denies weakness Psych Denies anxiety and Denies depression Endo Denies fatigue Aller/Immun Denies wheezing Physical exam (Primary Care) Vital Signs: Last Vital Signs Temp 97.9 F 02/04/25 08:35 Pulse 55 02/04/25 08:35 Resp 16 02/04/25 08:35 BP 130/76 02/04/25 08:35 Pulse Ox 98 02/04/25 08:35 Oxygen Delivery Method Room Air 02/04/25 08:35 BMI result Body Mass Index 31.1 Tobacco/Smoking Status: Tobacco use Status Tobacco use date assessed 02/04/25 02/04/25 08:38 Patient Tobacco Use Status Never used Tobacco 02/04/25 08:35 e-Cigarette/Vaping Use Never Used 02/04/25 08:35 Thrive Assessment: Date of Thrive Assessment Date Thrive assessed 07/30/24 02/04/25 08:34 Currently or been in a relationship where the following occur: No concerns reported Const General: well developed; No acute distress Nutritional Appearance: well nourished Orientation/consciousness: patient oriented x3 HENMT Head: Yes normocephalic and Yes atraumatic Eyes General: appearance normal, both eyes and all related structures Pupils: Equal, round and reactive pupils present EOM: EOMs intact bilaterally Resp Effort & Inspection: normal respiratory effort Auscultation: clear to auscultation bilaterally Cardio Rate: regular rate Rhythm: regular rhythm Heart sounds: S1 normal heart sound present, S2 normal heart sound present, no gallops, no murmurs and no rubs Neuro General: patient oriented x3 and gait normal Cranial nerves: Yes Equal, round and reactive pupils present Psych Affect: normal affect Coding Level of Care Code Est Pt Level 4 (24123) Diagnoses Hypertension I10 Hyperaldosteronism E26.9 Mild anemia D64.9 Pre-diabetes R73.03 Renal insufficiency N28.9 Diastolic dysfunction I51.89 Assessment & Plan Assessment & Plan (1) Hypertension: Code(s): I10 - Essential (primary) hypertension Category: Medical (2) Hyperaldosteronism: Code(s): E26.9 - Hyperaldosteronism, unspecified Category: Medical (3) Mild anemia: Code(s): D64.9 - Anemia, unspecified Category: Medical (4) Pre-diabetes: Code(s): R73.03 - Prediabetes Category: Medical (5) Renal insufficiency: Code(s): N28.9 - Disorder of kidney and ureter, unspecified Category: Medical (6) Diastolic dysfunction: Code(s): I51.89 - Other ill-defined heart diseases Category: Medical Plan Hyperaldosteronism and followed by Nephrology Blood pressure is controlled on current medication regimen. Watch salt and sodium and continue current medications Some diastolic dysfunction. Followed by cardiology. He is on losartan Continue good blood pressure control H&H slightly low but steady Likely secondary to mild renal insufficiency Will continue to monitor A1c at top of PreDM range. Continue diet low in sugars and starches Close monitoring - will recheck with next blood draw Mild elevation in liver enzymes May be secondary to some dehydration Encouraged good hydration, diet and exercise Will recheck with next blood draw Mild renal insufficiency History of acute kidney injury and protein urea and followed by Nephrology. Hydrate well Keep blood pressure well controlled Will continue to follow Follow-up with nephrology as recommended Orders: Orders Complete Blood Count Auto Diff Today D64.9 - Anemia, unspecified, Z00.00 - Encounter for general adult medical examination without abnormal findings Comprehensive [place]. Panel Fast Today R74.01 - Elevation of levels of liver transaminase levels, Z00.00 - Encounter for general adult medical examination without abnormal findings Microalbumin, Random (w Creat) Today I10 - Essential (primary) hypertension UA CC w/rflx Micro + Cult Today I10 - Essential (primary) hypertension, Z00.00 - Encounter for general adult medical examination without abnormal findings Lipid Panel Today E78.6 - Lipoprotein deficiency, Z00.00 - Encounter for general adult medical examination without abnormal findings
[2025-02-04 08:35] VITALS: BP 130/76; PULSE 55; RESP 16; TEMP 36.6; O2SAT 98; BMI 31.1
--- OUTSIDE RECORDS SUMMARY | 2025-02-04 08:50 | XMS_ITS | Patient Health Record ---
Author Organization [facility] Address [address] [place] [address] Care Team Providers Care Boarding House Cook Name Role Phone Beryl(inactive) Hernandez MOORE Primary Care Provider U Jewel Figueredo Unavailable [phone] Reason For Referral No Information Medications Medication [...] Problem Status W/U Status Risk Notes Problem [id number] Encounter for screening for malignant neoplasm of colon (Z12.11) Active confirmed Problem 66804460 Preprocedural examination (Z01.818) Active confirmed Problem [id number] History of long-term use of multiple prescription drugs (Z92.29) Active confirmed Plan Of Treatment Future Test Test Name Order Date COLONOSCOPY 04/09/2015 Insurance Providers Payer Name Payer Address Payer Phone Subscriber Number Group Number Insured Name Patient Relationship to Insured Coverage Start Date Coverage End Date [employer] (NEEDS REFERRA L) [address] [place] [address] [id number] NINA LANCASTER Self - patient is the insured Medical (General) History Medical History History ICD Code HTN Denies [place],DM,CVA,Lung disease,renal dise ase
--- OUTSIDE RECORDS SUMMARY | 2025-02-04 08:50 | XMS_ITS | Clinical Summary ---
Author Organization [facility] ity Address [address] [place] [address] Care Team Providers Care Healthcare Administration Intern Name Role Phone Unavailable Primary Care [...]
== END 2025-02-04 09:07 | disposition home or self-care (01) ==
LOC: HO.HMCFM 08:29
PROVIDERS: PCP Family Medicine; Visit Provider Family Medicine
DX: I10 Essential (primary) hypertension (principal); E26.9 Hyperaldosteronism, unspecified; D64.9 Anemia, unspecified; R73.03 Prediabetes; N28.9 Disorder of kidney and ureter, unspecified; I51.89 Other ill-defined heart diseases

== ENCOUNTER 2025-02-19 08:35 | Outpatient (AMB) | payer OTHER, SELFPAY ==
--- NOTE | 2025-02-19 08:46 | MHC.OFFVIS ---
Intake Visit Reasons: 1y follow up Intake Note: Patient is present for 1y follow up Urology Medication:Allopurinol Antibiotic Allergy:SULFA Blood Thinner:NONE Rag Room Supervisor Required: No Allergies Sulfa (Sulfonamide Antibiotics) Allergy (Unknown, Verified 02/19/25 08:47) Itching Medication List - Last Reconciled 02/19/25 by Brian Stephenson MD allopurinol 200 mg PO DAILY PRN amlodipine-olmesartan 10-40 mg 1 tab PO DAILY 90 days carvedilol 6.25 mg PO BID spironolactone 25 mg PO BID HPI Comments Details: 02/19/25--Pepe is a 59-year-old gentleman who is here for 1 year follow-up PSA screening, initially evaluated due to microscopic hematuria workup, left renal cyst on imaging. he is being followed by Nephrology. History of Present Illness The patient is a 59-year-old male presenting with a follow-up PSA screening. He has a history of renal insufficiency and is under the care of a summer child caregiver for this condition. The summer child caregiver is monitoring his blood pressure and protein levels in the urine, and he is on medication to manage his blood pressure. The patient's PSA level was previously measured at 0.32, which is within the normal range of 0 to 4. He is states he is scheduled for a colonoscopy, which is part of his preventative care regimen. Results - Labs: PSA level at 0.32, within normal range (0-4) Plan 1. Preventative Care: Psa Screening - Schedule annual PSA screening to monitor prostate health. 02/21/24--Pepe is a 58-year-old male who presents today to the office for a follow-up. I reviewed renal ultrasound with doppler December, kidneys within normal limits, no evidence to suggest renal artery stenosis.. The patient states he is voiding without difficulty, denies irritative voiding symptoms. Urinalysis microscopic hematuria, 2+ proteinuria. We will refer to Nephrology. PSA lab test not completed. PSA screening. 02/19/2023?He is followed today for 10/week urine cytology. He was last seen by me on 12/11/2022 for a Cystoscopy procedure. Cystoscopy findings-- no suspiciousl bladder lesions visualized.? CT urogram, and repeat urine cytology was ordered at that time. The patient was advised to follow-up after 2 months at that time. He denies any trouble with urination. He has been taking amlodipine 10 mg for blood pressure. I reviewed the urogram CT results from 02/13/2023 revealed unremarkable kidneys. I reviewed the pathology report results from 12/14/2022 revealed negative for high-grade urothelial carcinoma. 02/19/2023: Evaluation today?UA?Leukocytes: 15 Wilmer; blood: 10 Juan. 12/11/22--?The patient denies history of smoking. He was previously evaluated on 10/26/22 for abnormal urine cytology.? The urine cytology test was done during screening visit with his PCP. Urine cytology results reviewed?collected 08/26/22--Rare atypical urothelial cells. The patient denies gross hematuria. He states he drinks adequate amount of water daily also drinks tea. Denies drinking sodas. He voids frequently due to fluid intake. PSA results reviewed--05/19/2022-- 0.39. AUA symptom score-- 7. The urine was sent for bladder fish cancer test. The lab called to inform us that there were not enough cells in the urine. So, the test could not be completed.? Evaluation today-- blood: 10 Juan/uL, leukcoytes: negative. Cystoscopy findings-- no suspiciousl bladder lesions visualized.? PFSH Family History Father No problems noted. Mother No problems noted. 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 Current occupational exposures/hazards: No Cognitive needs: No Hearing needs: No Vision needs: No Review of Systems Const All systems reviewed & are unremarkable except as noted in HPI and below Reports no additional complaints Eyes Reports no additional complaints ENT Reports no additional complaints Card Reports no additional complaints Resp Reports no additional complaints GI Reports no additional complaints Reports as per HPI Musc Reports no additional complaints Skin/Breast Reports system reviewed and no additional complaints, except as documented Neuro Reports no additional complaints Psych Reports no additional complaints Endo Reports no additional complaints Paulie/Lymph Reports no additional complaints Aller/Immun Reports no additional complaints Results Reviewed Results Reviewed: Date of Service: 12/14/23 ULTRASOUND OF KIDNEYS WITH RENAL ARTERY DOPPLER CLINICAL INFORMATION: Hypertension. COMPARISON: CT urogram 02/13/2023. TECHNIQUE: Ultrasound of the kidneys was performed along with color flow Doppler imaging and velocity measurements in the proximal mid and distal renal arteries. Aortic velocities were measured and renal/aortic ratios were calculated. Segmental resistive indices were calculated bilaterally. The renal veins were examined for patency. FINDINGS: The kidneys appeared unremarkable with the right kidney measuring 11.2 x 4.9 x 6.1 cm and the left kidney measuring 10.8 x 6.0 x 8.0 cm. No renal masses, renal stones or hydronephrosis is seen. Renal cortical thickness appears normal. Velocity measurements in the proximal mid and distal renal arteries are normal. Velocity in the aorta is over 100 cm/s at 132 cm/s and therefore cannot be used to calculate renal aortic ratios. Segmental resistive indices were calculated and were all normal. The renal veins are patent. The bladder was not examined. IMPRESSION: No evidence to suggest renal artery stenosis. Date of Service: 02/13/23 EXAMINATION: CT ABDOMEN AND PELVIS WITHOUT AND WITH CONTRAST?? CLINICAL INFORMATION: Other abnormal findings on cytologic and Histological exam? COMPARISON: None available.? ?? FINDINGS: LUNG BASES: Small bilateral pleural effusions. Right lower lobe peripheral or subpleural nodular densities, question representing subpleural lymph nodes versus subsegmental atelectasis. LIVER, GALLBLADDER, AND BILIARY TREE: The liver is normal in size, shape, and attenuation. No focal hepatic lesion or biliary ductal dilatation is present. The gallbladder is unremarkable with no evidence of radiopaque gallstones, gallbladder wall thickening, or obvious pericholecystic inflammatory changes.?? PANCREAS: Unremarkable.?? SPLEEN: Unremarkable.?? ADRENAL GLANDS: Unremarkable.?? KIDNEYS AND URETERS: The kidneys are normal in size, shape, and attenuation. No hydronephrosis, hydroureter, or calculi seen. No perinephric stranding. 3 cm left renal cyst. No imaging follow-up recommended. BLADDER: Not optimally distended and not well evaluated. GASTROINTESTINAL TRACT: Mild diverticulosis of the colon. No evidence of diverticulitis. The small and large bowel are otherwise unremarkable. The appendix is unremarkable.?? ABDOMINAL WALL: No significant hernia is appreciated.?? LYMPH NODES: Normal. VASCULAR: Unremarkable. PELVIC VISCERA: The prostate gland does not appear enlarged.?? OSSEUS STRUCTURES: Degenerative changes of the spine. IMPRESSION: Unremarkable kidneys. Bladder not optimally distended and not well evaluated. Mild diverticulosis. Small bilateral pleural effusions. Question peripheral or subpleural posterior right lower lobe lower lobe lymph nodes versus subsegmental atelectasis. Collected: 12/11/22 Location: .LAB Received: 12/14/22 Diagnosis Urine: Negative for high-grade urothelial carcinoma. See comment. COMMENT: Cellular specimen consisting of single urothelial cells, some with degenerative changes, red blood cells and chronic inflammatory cells. Clinical History Microscopic hematuria, abnormal urine cytology Material Received Urine Gross Description 40 cc clear yellow fluid Assessment & Plan Assessment & Plan (1) Hyperaldosteronism: Code(s): E26.9 - Hyperaldosteronism, unspecified Category: Medical (2) Renal insufficiency: Code(s): N28.9 - Disorder of kidney and ureter, unspecified Category: Medical (3) Screening for prostate cancer: Code(s): Z12.5 - Encounter for screening for malignant neoplasm of prostate Category: Medical (4) Proteinuria: Code(s): R80.9 - Proteinuria, unspecified Category: Medical (5) Renal cyst, left: Code(s): N28.1 - Cyst of kidney, acquired Category: Medical Plan Cont PSA screening, Nephrology following patient one year fu. Patient Instructions: The patient had an opportunity to ask questions regarding treatment plan. The patient expressed understanding and agreement with the above treatment plan. The patient is aware they should contact our office by phone for worsening of their current condition or the appearance of new symptoms. Compliance is encouraged with any medications and followup testing that is ordered. It is a privilege to be allowed the opportunity to participate in the urologic care of your patient. If you have any questions or concerns regarding treatment for the above conditions please do not hesitate to contact me. The office telephone contact is [phone]. This note is constructed in part using voice recognition software. While every effort has been made to ensure accuracy bacteriology research assistant errors may have been included. Yours sincerely, Brian Stephenson MD Scribe Plan - Not visible on output: Patient was informed and verbally consented to the use of an ambient scribe for clinic note documentation during this visit. Coding Level of Care Code Est Pt Level 3 (48376) Complex EM visit Add On G2211 Diagnoses Hyperaldosteronism E26.9 Renal insufficiency N28.9 Screening for prostate cancer Z12.5 Proteinuria R80.9 Renal cyst, left N28.1
--- OUTSIDE RECORDS SUMMARY | 2025-02-19 09:38 | XMS_ITS | Encounter Summary ---
Author Organization [facility] Address [id number] [place] [address] Care Team Providers Care Undercover Operator Name Role Phone Tod Monte MD Primary Care Provider [phone] Reason for Visit * Reason Onset Date Comments information needed 02/04/2025 Encounter Details Date Type Department Care Team (Late Contact Info) Description 02/04/2025 Telephone Gastroenterology - [place] [address] [phone] Kayla Ng, YEMI [facility] [address] [place] [address] Social History Tobacco Use Types Packs/Day Years Used Date Smoking Tobacco: Never Assessed Sex and Gender Information Value Date Recorded Sex Assigned at Not on file Legal Sex Male 10:35 AM EST Gender Identity Not on file Sexual Orientation Not on file documented as of this encounter Progress Notes * Shruthi Villagomez - 02/06/2025 1:38 PM EDT Records received. * Dianna Skinner - 02/04/2025 1:19 PM EDT Records received from [facility] Family Medicine for colonoscopy, missing last office notes, meds & allergies. Faxed & placed in missing folder. documented in this encounter Plan of Treatment Upcoming Encounters Date Type Department Care Team (Late Contact Info) Description 04/27/2025 10:00 AM EST Appointment [facility] [address] [place] [phone] Schuyler Watts MD [address] [place] [address] documented as of this encounter Visit Diagnoses Not on filedocumented in this encounter Care Teams Undercover Operator Relationship Specialty Start Date End Date Tod Monte MD [address] [place] [address] Dr [place] PCP - General Family Medicine 02/04/25 documented as of this encounter
--- OUTSIDE RECORDS SUMMARY | 2025-02-19 09:38 | XMS_ITS | Patient Health Record ---
Author Organization [facility] Address [address] [place] [address] Care Team Providers Care Account General Manager Name Role Phone Beryl(inactive) Hernandez MOORE Primary Care Provider U Jewel Figueredo Unavailable [phone] Reason For Referral No Information Medications Medication [...] Problem Status W/U Status Risk Notes Problem [id number] Encounter for screening for malignant neoplasm of colon (Z12.11) Active confirmed Problem 51360306 Preprocedural examination (Z01.818) Active confirmed Problem 900334837 History of long-term use of multiple prescription drugs (Z92.29) Active confirmed Plan Of Treatment Future Test Test Name Order Date COLONOSCOPY 04/09/2015 Insurance Providers Payer Name Payer Address Payer Phone Subscriber Number Group Number Insured Name Patient Relationship to Insured Coverage Start Date Coverage End Date [employer] (NEEDS REFERRA L) [address] [place] [address] [id number] NINA LANCASTER Self - patient is the insured Medical (General) History Medical History History ICD Code HTN Denies [place],DM,CVA,Lung disease,renal dise ase
--- OUTSIDE RECORDS SUMMARY | 2025-02-19 09:38 | XMS_ITS | Encounter Summary ---
Author Organization [facility] Address [address] [place] [address] Care Team Providers Care Motor Vehicle Licence Examiner Name Role Phone Tod Monte MD Primary Care Provider Reason for Visit * Reason Onset Date Comments Special Procedure 02/06/2025 Encounter Details Date Type Department Care Team (Late Contact Info) Description 02/06/2025 Telephone Gastroenterology - [place] [address] [place] [address] Parisa Mitchell MD [address] [place] [phone] Social History Tobacco Use Types Packs/Day Years Used Date Smoking Tobacco: Never Assessed Sex and Gender Information Value Date Recorded Sex Assigned at Not on file Legal Sex Male 10:35 AM EST Gender Identity Not on file Sexual Orientation Not on file documented as of this encounter Progress Notes * Rachelle Means MA - 02/10/2025 8:15 AM EDT Meds and allergies updated, given to GI schedulers. Grace * Shruthi Villagomez - 02/06/2025 1:39 PM EDT Records received from [facility] Family Medicine for colonoscopy. Given to Grace to update meds/allergies. documented in this encounter Plan of Treatment Upcoming Encounters Date Type Department Care Team (Late st Contact Info) Description 04/27/2025 10:00 AM EST Appointment [facility] Endoscopy [address] [place] [address] Schuyler Watts MD [address] [place] [phone] documented as of this encounter Visit Diagnoses Not on filedocumented in this encounter Care Teams Motor Vehicle Licence Examiner Relationship Specialty Start Date End Date Tod Monte MD [address] [place] [address] Dr [place] PCP - General Family Medicine 02/04/25 documented as of this encounter
--- OUTSIDE RECORDS SUMMARY | 2025-02-19 09:38 | XMS_ITS | Clinical Summary ---
Author Organization 175 [facility] Address 175 [place] [address] Phone Care Team Providers Care Global Head Advertiser Solutions Name Role Phone Tod Monte MD Primary Care Provider Allergies Active Allergy Reactions Criticality Noted Date Comments Sulfa (Sulfonamide Antibiotics) 07/2024 Medications allopurinoL 200 mg tablet Take 200 mg by mouth 1 (one) time each day. Active amLODIPine-olmes lyly (JARETH) 10-40 mg per tablet Take 1 tablet by mouth 1 (one) time each day. Active carvediloL (COREG) 6.25 mg tablet Take 1 tablet (6.25 mg total) by mouth 2 (two) times a day with meals. Active spironolactone (ALDACTONE) 25 mg tablet Take 1 tablet (25 mg total) by mouth 2 (two) times a day. Active Encounters Date Type Department Care Team Description 02/06/2025 Telephone Gastroenterology [facility] [address] [address] Parisa Mitchell MD 02/04/2025 Telephone Gastroenterology [facility] 175 [facility] [address] [address] Kayla Ng NP from Last 3 Months Social History Tobacco Use Types Packs/Day Years Used Date Smoking Tobacco: Never Assessed Sex and Gender Information Value Date Recorded Sex Assigned at Not on file Legal Sex Male 10:35 AM EST Gender Identity Not on file Sexual Orientation Not on file Plan of Treatment Upcoming Encounters Date Type Department Care Team ([facility] Contact Info) Description 04/27/2025 10:00 AM EST Appointment [facility] [address] [place] [address] Schuyler Watts MD [facility] [place] [address] Health Maintenance Due Date Last Done Comments DTaP,Tdap,and Td Vaccines (1 - Tdap) 10/18/1982 Pneumococcal Vaccine: 50+ Ye ars (1 of 1 - PCV) 10/18/2013 Zoster Vaccines (1 of 2) 10/18/2013 Depression Screening 06/11/2024 Cholesterol Screening (Lipid Panel) 02/04/2025 Colorectal Cancer Screening: Colonoscopy 02/04/2025 HIV Screening 02/04/2025 Hepatitis C Screening 02/04/2025 Social Influencers of Health Screening 02/04/2025 COVID-19 Vaccine (1 - 2023-2 5 season) 2025 Influenza Vaccine (#1) 2025 RSV Immunization Adult [...] on patient's age to complete this topic Insurance [employer] Care Teams Global Head Advertiser Solutions Relationship Specialty Start Date End Date Tod Monte MD [address] [place] [address] Dr Radha [place] PCP - General Family Medicine 02/04/25
== END 2025-02-19 09:26 | disposition home or self-care (01) ==
LOC: HO.HUSH 08:36
PROVIDERS: PCP Family Medicine; Visit Provider Urology
DX: E26.9 Hyperaldosteronism, unspecified (principal); N28.9 Disorder of kidney and ureter, unspecified; Z12.5 Encounter for screening for malignant neoplasm of prostate; R80.9 Proteinuria, unspecified; N28.1 Cyst of kidney, acquired; Z13.9 Encounter for screening, unspecified
CPT/HCPCS: 99213

== ENCOUNTER → 2025-02-19 08:35 | Outpatient (BNVA) | payer OTHER, SELFPAY | PROVIDERS: PCP Family Medicine; Visit Provider Urology | DX: N28.1 Cyst of kidney, acquired (principal) | CPT/HCPCS: 81003 ==

== ENCOUNTER 2025-03-27 08:32 | Outpatient (REF) | payer OTHER, SELFPAY ==
[2025-03-27 08:50] LABS: MANUAL DIFF FLAG NO
--- OUTSIDE RECORDS SUMMARY | 2025-03-27 08:55 | XMS_ITS | Clinical Summary ---
Author Organization 175 [facility] Address 175 [place] [address] Phone Care Team Providers Care Principal Gifts Officer Name Role Phone Tod Monte MD Primary [...] Department Care Team Description 02/06/2025 Telephone Gastroenterology [facility] [address] [address] Parisa Mitchell MD 02/04/2025 Telephone Gastroenterology [facility] [address] [address] Kayla Ng NP from Last 3 Months Social History Tobacco Use Types Packs/Day Years Used Date Smoking Tobacco: Never Assessed Sex and Gender Information Value Date Recorded Sex Assigned at Not on file Legal Sex Male 10:35 AM EST Gender Identity Not on file Sexual Orientation Not on file Plan of Treatment Upcoming Encounters Date Type Department Care Team ([facility] Contact Info) Description 04/27/2025 10:00 AM EST Appointment [facility] [address] [place] [address] Schuyler Watts MD [address] [address] Health Maintenance Due Date Last Done Comments Colorectal Cancer Screening: Colonoscopy 1965 DTaP,Tdap,and Td Vaccines (1 - Tdap) 10/18/1982 Pneumococcal Vaccine: 50+ Ye ars (1 of 1 - PCV) 10/18/2013 Zoster Vaccines (1 of 2) 10/18/2013 Depression Screening 06/11/2024 Cholesterol Screening (Lipid Panel) 02/04/2025 HIV Screening 02/04/2025 Hepatitis C Screening [...] complete this topic Insurance [employer] Care Teams Principal Gifts Officer Relationship Specialty Start Date End Date Tod Monte MD [address] [place] [address] Dr Radha [place] PCP - General Family Medicine 02/04/25
--- OUTSIDE RECORDS SUMMARY | 2025-03-27 08:55 | XMS_ITS | Patient Health Record ---
Author Organization [facility] Address [address] [place] [address] Care Team Providers Care Rubber And Plastics Worker Name Role Phone Beryl(inactive) Hernandez MOORE Primary Care Provider U Jewel Figueredo [phone] Reason For Referral No Information Medications Medication SIG (Take, Route, Frequency, Duration) Notes Start Date End Date Status hydroCHLOROthiazide 25 MG 1 tablet Orally Once a day Active Suprep Bowel Prep 1 kit as directed Oral ly as directed; Duration: 1 dose 04/13/2015 Activ e Cartia XT 300 MG 1 capsule Orally Onc e a day Active Problems Problem Type SNOMED Code ICD Code Onset Dates Problem Status W/U Status Risk Notes Problem Screening for malignant neoplasm of colon (186381530) Encounter for screening for malignant neoplasm of colon (Z12.11) Active confirmed Problem Preprocedural examination (973993291167946) Preprocedural examination (Z01.818) Active confirmed Problem History of drug therapy (951830743) History of long-term use of multiple prescription drugs (Z92.29) Active confirmed Plan Of Treatment Future Test Test Name Order Date COLONOSCOPY 04/09/2015 Insurance Providers Payer Name Payer Address Payer Phone Subscriber Number Group Number Insured Name Patient Relationship to Insured Coverage Start Date Coverage End Date [employer] (NEEDS REFERRA L) [address] [place] [address] [id number] NINA LANCASTER Self - patient is the insured Medical (General) History Medical History History ICD Code HTN Denies [place],DM,CVA,Lung disease,renal dise ase
[2025-03-27 09:23] LABS: Hematocrit 37.5 % (42.0-52.0); Hemoglobin 12.9 g/dl (14.0-18.0); Imm Gran Abs Auto 0.02 X10*3/uL (0.00-0.03); Imm Gran Pct Auto 0.3 % (0.0-0.4); Lymphocytes Absolute Auto 2.8 X10*3/uL (1.2-4.9); Mean Corpuscular HGB Conc 34.4 g/dl (31.0-36.0); Mean Corpuscular Hemoglobin 30.4 pg (27.0-33.0); Mean Corpuscular Volume 88.4 fL (80.0-98.0); NRBC Abs Auto 0.000 X10*3/uL (0.0-0.012); NRBC Pct Auto 0.0 /100WBC (0.0-0.2); Platelet Count 264 X10*3/uL (160-400); Red Blood Count 4.24 X10*6/uL (4.60-5.80); White Blood Count 6.0 X10*3/uL (4.8-10.8)
[2025-03-27 09:53] LABS: Appearance Urine Clear; Glucose Urine UA Negative (Negative); PH 5.5 (5.0-9.0); Specific Gravity - Urine 1.020 (1.005-1.025)
[2025-03-27 10:17] LABS: Alanine Aminotransferase 27 U/L (0-40); Albumin Level 3.9 g/dL (3.5-5.0); Alkaline Phosphatase 117 U/L (39-117); Anion Gap 11 (12-20); Aspartate Amino Transferase 28 U/L (5-37); Blood Urea Nitrogen 17 mg/dL (9-16); Calcium 8.9 mg/dL (8.4-10.2); Carbon Dioxide 25 mmol/L (22-29); Chloride 110 mmol/L (96-108); Cholesterol 128 mg/dL (<200); Estimated Glomerular Filt Rate > 60; HDL Cholesterol 28 mg/dL (>40); Potassium 4.4 mmol/L (3.3-5.1); Sodium 142 mmol/L (135-145); Total Protein 6.8 g/dL (6.5-8.0); Triglycerides 73 mg/dL (<150)
[2025-03-27 11:49] LABS: Microalbum/Creatinine Ratio Ur 27.1 ug/mg cr (<30)
== END 2025-03-27 08:33 | disposition home or self-care (01) ==
LOC: HO.LAB 08:32
PROVIDERS: Absent Provider Internal Medicine Hypertension Specialist; PCP Family Medicine; Visit Provider Family Medicine
DX: Z00.00 Encounter for general adult medical examination without abnormal findings (principal); I10 Essential (primary) hypertension; D64.9 Anemia, unspecified; E78.6 Lipoprotein deficiency; R74.01 Elevation of levels of liver transaminase levels
CPT/HCPCS: 36415; 80053; 80061; 81003; 82043; 82570; 85025

== ENCOUNTER 2025-04-01 09:12 | Outpatient (AMB) | payer OTHER, SELFPAY ==
[2025-04-01 09:24] VITALS: BP 132/82; PULSE 53; O2SAT 99; BMI 31.3
--- NOTE | 2025-04-01 09:24 | HO.NEPHOV ---
Vital Signs 04/01/25 09:24 Height 5 ft 10 in Weight 218 lb BMI 31.3 BP 132/82 Blood Pressure Location Lt brachial Position Sitting Pulse 53 Pulse Source Pulse Oximeter Pulse Oximetry (%) 99 Oxygen Delivery Method Room Air Intake Visit Reasons: 4 mo follow up t Confirmed Protozoology Teacher Required: No Accompanied by: Self / Same As Patient Allergies Sulfa (Sulfonamide Antibiotics) Allergy (Unknown, Verified 04/01/25 09:25) Itching Medication List - Last Reconciled 04/01/25 by Augusto Lovett MD allopurinol 200 mg PO DAILY PRN amlodipine-olmesartan 10-40 mg 1 tab PO DAILY 90 days carvedilol 6.25 mg PO BID spironolactone 25 mg PO BID HPI Comments Details: 58-year-old man with hypertension and proteinuria. He had persistent hypokalemia while on chlorthalidone. Potassium was 2.7. He was given potassium supplementation. At present he has no new complaints. 04/30/2024. Events noted. He is currently on potassium supplementation along with spironolactone. Cardiac workup in progress. Despite spironolactone and potassium supplementation serum potassium is relatively low around 3.9 mg/dL. He continues to have mild alkalosis with a total CO2 of 30 which is spontaneous. This raises the suspicion for hyperaldosteronism. 05/28/2024. As planned he has stopped spironolactone and olmesartan underwent lab testing. Serum aldosterone and plasma renin activity was tested. He has restarted aldosterone and olmesartan after the lab tests. Home blood pressure readings have been acceptable. No new issues today. 07/02/24 Home BP is still around [address] adrenals - not done yet CTA of coronaries- normal c/o epigastric pain 08/06/2024. Overall doing well. Tolerating medications. No new issues. 11/12/24 59-year-old male presenting for the follow-up of hypertension and support with present health concerns. The patient?s usual blood pressure readings are well-controlled at 132/70 mmHg at home, despite occasional elevated readings in medical settings due to anxiety. He notices no adverse symptoms related to blood pressure variability. One week prior to this visit, the patient experienced eye discomfort attributed to allergies. He promptly sought care from an multineedle shirrer and was prescribed medication to alleviate symptoms, which resolved without further complications. Furthermore, the patient's gout remains stable with no recent episodes requiring intervention. Current therapies effectively manage his health conditions, and there are no reports of adverse symptoms or new health issues. 04/01/25 - The patient is a 59-year-old male presenting with follow-up for hypertension management. - Hypertension: Controlled with spironolactone; no adrenal lesions; potassium normal. - Suppressed plasma renin activity and elevated PA/PRA - Adrenal gland - No lesions Left kidney Bosnic1 cyst: Benign, contains fat, no solid mass. - Cream-colored phlegm: Occasional, no cough, PFSH Family History Father No problems noted. Mother No problems noted. 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 Lungs entry equal no rales. Heart S1-S2 heard no gallop or rub. Abdomen soft nontender. Neuro alert awake oriented. No asterixis. Extremities no edema. Results Reviewed Nephrology Results: Hgb, (14.0-18.0) 12.9 g/dl L 03/27/25 WBC, (4.8-10.8) 6.0 X10*3/uL 03/27/25 Plt Count, (160-400) 264 X10*3/uL 03/27/25 Sodium, (135-145) 142 mmol/L 03/27/25 Potassium, (3.3-5.1) 4.4 mmol/L 03/27/25 Chloride, (96-108) 110 mmol/L H 03/27/25 Carbon Dioxide, (22-29) 25 mmol/L 03/27/25 BUN, (9-16) 17 mg/dL H 03/27/25 Creatinine, (0.5-1.4) 1.22 mg/dL 03/27/25 Calcium, (8.4-10.2) 8.9 mg/dL 03/27/25 Urine Protein, (Neg-Trace) Negative mg/dL 03/27/25 Urine Creatinine 187.90 mg/dL 03/27/25 Renal US 12/14/23 Assessment & Plan Assessment & Plan (1) Hypertension: Code(s): I10 - Essential (primary) hypertension Category: Medical (2) Proteinuria: Code(s): R80.9 - Proteinuria, unspecified Category: Medical (3) Hypokalemia: Code(s): E87.6 - Hypokalemia Category: Medical (4) Resistant hypertension: Code(s): I1A.0 - Resistant hypertension Category: Medical Plan Middle aged man with longstanding hypertension with proteinuria. Urine protein creatinine ratio was 0.25. Most likely due to underlying hypertensive kidney disease. Pepe has hypokalemia which is currently unprovoked. Also has mild alkalosis without diuretics. This raised suspicion for hyperaldosteronism. serum aldosterone was elevated PA/PRA ratio was elevated at 186. At present blood pressure well controlled. Continue current medications. Watch blood pressure at home CT scan did not show any adrenal nodules or lesions. Since there was no specific lesions there is no indication for adrenal vein sampling at this time. BP is well controlled based on home readings. Renal function and Potassium are normal. Encouraged to stay on low salt diet Increase PO fluid intake No changes in anti hypertensive regimen Left Kidney - Bosnick 1 cyst- No solid lesions . Orders: Orders Basic Metabolic Panel 3 Months I10 - Essential (primary) hypertension Magnesium 3 Months I10 - Essential (primary) hypertension Phosphorus 3 Months I10 - Essential (primary) hypertension Coding Level of Care Code Est Pt Level 4 (51827) Diagnoses Hypertension I10 Proteinuria R80.9 Hypokalemia E87.6 Resistant hypertension I1A.0
--- OUTSIDE RECORDS SUMMARY | 2025-04-01 10:09 | XMS_ITS | Clinical Summary ---
Author Organization 175 [facility] Address 175 [place] [address] Phone Care Team Providers Care Fire Lieutenant Name Role Phone Tod Monte MD Primary Care Provider [phone] Allergies Active Allergy Reactions Criticality Noted Date [...] Gastroenterology [facility] [address] [address] Parisa Mitchell MD 02/04/2025 Telephone Gastroenterology [facility] [address] [address] Kayla Ng NP from Last 3 Months Social History Tobacco Use Types Packs/Day Years Used Date Smoking Tobacco: Never Assessed Sex and Gender Information Value Date Recorded Sex Assigned at Not on file Legal Sex Male 10:35 AM EST Gender Identity Not on file Sexual Orientation Not on file Plan of Treatment Upcoming Encounters Date Type Department Care Team ([facility] Contact Info) Description 04/27/2025 10:00 AM EST Appointment [facility] End[facility] [address] [place] [address] Schuyler Watts MD [address] [address] Health Maintenance Due Date Last Done Comments [...] on patient's age to complete this topic Goals Goal Patient Goal Type Associated Problems Recent Progress Patient-Stated? Author Autogenera ariella Goal Care Plan Autogenerated Problem No Sallie Souza Additional Health Concerns Active Problems Noted Date Diagnosed Date Autogenerated Problem 03/29/2025 Insurance [employer] Care Teams Fire Lieutenant Relationship Specialty Start Date End Date Tod Monte MD [address] [place] [address] Dr Radha [place] PCP - General Family Medicine 02/04/25
--- OUTSIDE RECORDS SUMMARY | 2025-04-01 10:09 | XMS_ITS | Patient Health Record ---
Author Organization [facility] Address [address] [place] [address] Care Team Providers Care Reinsurance Claims Analyst Name Role Phone Beryl(inactive) Hernandez MOORE Primary Care Provider U Jewel Figueredo [phone] Reason For Referral No Information Medications Medication [...] Problem Screening for malignant neoplasm of colon (059849517) Encounter for screening for malignant neoplasm of colon (Z12.11) Active confirmed Problem Preprocedural examination (834814378551592) Preprocedural examination (Z01.818) Active confirmed Problem History of drug therapy (832749668) History of long-term use of multiple prescription drugs (Z92.29) Active confirmed Plan Of Treatment Future Test Test Name Order Date COLONOSCOPY 04/09/2015 Insurance Providers Payer Name Payer Address Payer Phone Subscriber Number Group Number Insured Name Patient Relationship to Insured Coverage Start Date Coverage End Date [employer] (NEEDS REFERRA L) [address] [place] [address] [phone] [id number] NINA LANCASTER Self - patient is the insured Medical (General) History Medical History History ICD Code HTN Denies [place],DM,CVA,Lung disease,renal dise ase
== END 2025-04-01 10:22 | disposition home or self-care (01) ==
LOC: HO.HKAS 09:13
PROVIDERS: PCP Family Medicine; Visit Provider Internal Medicine Hypertension Specialist
DX: I10 Essential (primary) hypertension (principal); R80.9 Proteinuria, unspecified; E87.6 Hypokalemia; I1A.0 Resistant hypertension
CPT/HCPCS: 99214

== ENCOUNTER 2025-05-11 09:17 | Outpatient (AMB) | payer OTHER, SELFPAY ==
--- NOTE | 2025-05-11 09:40 | A.OFFPC_ITS ---
Vital Signs 05/11/25 09:43 Height 5 ft 10 in Weight 222 lb 8 oz BMI 31.9 BP 142/68 H Blood Pressure Location Rt brachial Position Sitting Pulse 55 Pulse Source Pulse Oximeter Temp 98.4 F Temp Source Temporal Artery Scan Pulse Oximetry (%) 98 Oxygen Delivery Method Room Air Intake Visit Reasons: f/u HTN, labs Allergies Sulfa (Sulfonamide Antibiotics) Allergy (Unknown, Verified 05/11/25 09:44) Itching Medication List - Last Reconciled 05/11/25 by Tod Monte MD allopurinol 200 mg PO DAILY PRN amlodipine-olmesartan 10-40 mg 1 tab PO DAILY 90 days carvedilol 6.25 mg PO BID spironolactone 25 mg PO BID Tobacco use date assessed: 05/11/25 Dental Screening Dental Screen Date: 05/11/25 Did you have a dental visit in the last 12 months?: Yes Did you have a dental problem in the last 6 months where you did not have access to dental care?: No Was dental information given to patient?: Patient has dentist HPI f/u HTN, labs HPI Details 59 y/o male presents to f/u HTN, labs. BP today 142/68, 55p. He is on amlodipine-olmesartan 10-40mg daily, carvedilol 6.25mg b.i.d, spironolactone 25mg b.i.d. A1c today 05/11/25 6.1%. Pt notes BP at home have been in the 120s systolic range. Labs drawn 03/27/25. Reviewed labs with pt. Triglycerides 73. TC 128. LDL 86. HDL low at 28. Reports nipple tenderness. [facility] Family History Father No problems noted. Mother No problems noted. 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 1. Little interest or pleasure in doing things: not at all 2. Feeling down, depressed, or hopeless: not at all 3. Trouble falling or staying asleep, or sleeping too much: not at all 4. Feeling tired or having little energy: not at all 5. Poor appetite or overeating: not at all 6. Feeling bad about yourself - or that you are a failure or have let yourself or your family down: not at all 7. Trouble concentrating on things, such as reading the newspaper or watching television: not at all 8. Moving or speaking so slowly that other people could have noticed. Or the opposite - being so fidgety or restless that you have been moving around a lot more than usual: not at all 9. Thoughts that you would be better off or of hurting yourself in some way: not at all Total score: 0 Depression Screening Interpretation: Negative Depression Screening Done: Yes Source: Developed by Drs. Jewel De Oliveira, Madeline Magana, Kiel Pantoja and colleagues, with an educational den from [employer]. Thrive Questionnaire Date Thrive assessed: 07/30/24 I am a: Patient What is your living situation today?: I have a steady place to live Within the past 12 months, did the food you bought not last and you didn't have the money to get more?: Never true Within the past 12 months, did you worry whether your food would run out before you got money to buy more?: Never true Do you have trouble paying for medicines?: No Do you have trouble getting transportation to medical appointments?: No Do you have trouble paying your heating and electricity bill?: No Do you have trouble taking care of your child, family member or friend?: No Do you have trouble with day-to-day activities such as bathing, preparing meals, shopping, managing finances, etc.?: No Are you currently unemployed and looking for a job?: No Are you interested in more education?: Yes Please select the resources that you would like help with: None Currently or been in a relationship where the following occur: No concerns reported THRIVE Score: 0 AUDIT C Alcohol Use Questionnaire (AUDIT-C) 1. How often do you have a drink containing alcohol?: Never 3. How often do you have six or more drinks on one occasion?: Never Total Score: 0 ASHKAN-7 AMB Questionnaire ASHKAN-7 Date ASHKAN - 7 assessed: 08/28/24 Feeling nervous, anxious, or on edge: 0 = Not at all Not being able to stop or control worryin = Not at all Worrying too much about different things: 0 = Not at all Trouble relaxin = Not at all Being so restless that it is hard to sit still: 0 = Not at all Becoming easily annoyed or irritable: 0 = Not at all Feeling afraid as if something awful might happen: 0 = Not at all Total ASHKAN-7 score (0-4 normal; 5-9 mild; 10-14 moderate; 15-21 severe): 0 Source: Developed by Drs. Jewel De Oliveira, Madeline Magana, Kiel Pantoja and colleagues, with an educational den from [employer]. Review of Systems Const Denies chills, Denies fatigue, Denies fever(s), Denies headache(s) and Denies weakness ENT Denies dizziness and Denies headache(s) Card Denies dyspnea Resp Denies cough, Denies dyspnea, Denies wheezing and Denies other (shortness of breath) Musc Denies numbness and Denies tingling Neuro Denies dizziness, Denies headache(s), Denies numbness, Denies tingling and Denies weakness Psych Denies anxiety and Denies depression Endo Denies fatigue Aller/Immun Denies wheezing Physical exam (Primary Care) Vital Signs: Last Vital Signs Temp 98.4 F 05/11/25 09:43 Pulse 55 05/11/25 09:43 BP 142/68 H 05/11/25 09:43 Pulse Ox 98 05/11/25 09:43 Oxygen Delivery Method Room Air 05/11/25 09:43 BMI result Body Mass Index 31.9 Tobacco/Smoking Status: Tobacco use Status Tobacco use date assessed 05/11/25 05/11/25 09:48 Patient Tobacco Use Status Never used Tobacco 05/11/25 09:41 e-Cigarette/Vaping Use Never Used 05/11/25 09:41 PHQ-9: PHQ-9 Score PHQ-9: Total score 0 05/11/25 10:04 Depression Screening Interpretation: Negative Thrive Assessment: Date of Thrive Assessment Date Thrive assessed 07/30/24 05/11/25 09:41 Currently or been in a relationship where the following occur: No concerns reported Const General: well developed; No acute distress Nutritional Appearance: well nourished Orientation/consciousness: patient oriented x3 HENMT Head: Yes normocephalic and Yes atraumatic Eyes General: appearance normal, both eyes and all related structures Pupils: Equal, round and reactive pupils present EOM: EOMs intact bilaterally Resp Effort & Inspection: normal respiratory effort Neuro General: patient oriented x3 and gait normal Cranial nerves: Yes Equal, round and reactive pupils present Psych Affect: normal affect Results AMB Hemoglobin A1c AMB Hemoglobin A1c 6.1 % Last Edit by Trisha Frost CMA on 05/11/25 09:55 Results Reviewed Results Reviewed: Laboratory Last Values Hgb A1c (Clinic) 6.1 % (4.0-6.0) H 05/11/25 09:42 Coding Level of Care Code Est Pt Level 4 (78891) Diagnoses Hypertension I10 Hyperaldosteronism E26.9 Pre-diabetes R73.03 Elevated ALT measurement R74.01 Screening for colon cancer Z12.11 Nipple tenderness N64.4 Assessment & Plan Assessment & Plan (1) Hypertension: Code(s): I10 - Essential (primary) hypertension Category: Medical Plan: Blood pressure is little above goal of less than 140/90. However, patient notes that blood pressures are better controlled at home He has a blood pressure monitor at home checks this regularly. Continue current medications (2) Hyperaldosteronism: Code(s): E26.9 - Hyperaldosteronism, unspecified Category: Medical Plan: Continue spironolactone Follow-up with nephrology as recommended (3) Pre-diabetes: Code(s): R73.03 - Prediabetes Category: Medical Plan: A1c improved from 6.4% to 6.1%. Still in pre diabetes range Encouraged diet low in sugars and starches Maintain good weight control and continue exercising (4) Elevated ALT measurement: Code(s): R74.01 - Elevation of levels of liver transaminase levels Category: Medical Plan: Liver enzymes are within range Continue good hydration and weight control (5) Screening for colon cancer: Code(s): Z12.11 - Encounter for screening for malignant neoplasm of colon Category: Medical Plan: Patient had colonoscopy at [facility]. Recommended 10 year follow-up. Up-to-date. (6) Nipple tenderness: Code(s): N64.4 - Mastodynia Category: Medical Plan: Right nipple tenderness. Patient is on spironolactone. Checking diagnostic mammogram and lab work. Orders: Orders AMB Hemoglobin A1c Today Z13.9 - Encounter for screening, unspecified MM diagnostic mammo BI Today N64.4 - Mastodynia US breast RT complete Today N64.4 - Mastodynia LDL Cholesterol Direct Today E78.5 - Hyperlipidemia, unspecified, E78.6 - Lipoprotein deficiency Prolactin Today N64.4 - Mastodynia Comprehensive [place]. Panel Fast Today N28.9 - Disorder of kidney and ureter, unspecified, Z00.00 - Encounter for general adult medical examination without abnormal findings Microalbumin, Random (w Creat) Today I10 - Essential (primary) hypertension Medications: New blood pressure monitor Automatic, Digital. Dx: I10. Daily As directed, 999 days/lifetime 1 ea 0RF I10 - Essential (primary) hypertension
[2025-05-11 09:43] VITALS: BP 142/68; PULSE 55; TEMP 36.9; O2SAT 98; BMI 31.9
--- OUTSIDE RECORDS SUMMARY | 2025-05-11 10:57 | XMS_ITS | Clinical Summary ---
Author Organization 175 [facility] Address [address] [place] [address] Phone Care Team Providers Care Cooker Cleaner Name Role Phone Tod Monte MD Primary Care Provider Allergies Active Allergy Reactions Criticality Noted Date Comments Sulfa (Sulfonamide Antibiotics) 07/2024 Medications allopurinoL 200 mg tablet Take 200 mg by mouth 1 (one) time each day. Active amLODIPine-olme sartan (JARETH) 10-40 mg per tablet Take 1 tablet by mouth 1 (one) time each day. Active carvediloL (COREG) 6.25 mg tablet Take 1 tablet (6.25 mg total) by mouth 2 (two) times a day with meals. Active spironolactone (ALDACTONE) 25 mg tablet Take 1 tablet (25 mg total) by mouth 2 (two) times a day. Active bisacodyL (DULCOLAX) 5 mg EC tablet Take 2 tablets by mouth right before beginning bowel prep. See instructions provided by the office 2 tablet 5 Active polyethylene glycol (Golytely) 236-22.74-6.74 -5.86 gram solution Take 4L by mouth once for one dose. May substitue any PEG. Starting at 2PM the day before your procedure drink 1 8oz glasses at your own pace until you complete half of the gallon. Finish 2nd half of the gallon at 8PM. 4000 mL 5 Active Encounters Date Type Department Care Team Description 04/27/2025 9:44 AM EST Anesthesia Event [facility] End[facility] [address] [place] [address] Meka Marinelli MD 04/27/2025 8:56 AM EST - 04/27/2025 11:59 PM EST Hospital Encounter [facility] Endoscopy [address] [place] [address] Schuyler Watts MD Dickman, Christy L, CRNA Colon cancer screening Discharge Disposition: Home or Self Care from Last 3 Months Medical History Medical History Date Comments Hypertension Gout Social History Tobacco Use Types Packs/Day Years Used Date Smoking Tobacco: Never Smokeless Tobacco: Never Tobacco Cessation:Counseling Given: Not Answered Alcohol Use Standard Drinks/Week Comments Not Currently 0 (1 standard drink = 0.6 oz pur e alcohol) Interpersonal Safety Answer Date Record ed Physical Abuse Unrecognized value 04/27/2025 Verbal Abuse Unrecognized value 04/27/2025 Sex and Gender Information Value Date Recorded Sex Assigned at Not on file Legal Sex Male 10:35 AM EST Gender Identity Not on file Sexual Orientation Not on file Obstetrics History Last Filed Vital Signs Vital Sign Reading Time Taken Comments Blood Pressure 131/78 04/27/2025 10:17 AM EST Pulse 58 04/27/2025 10:17 AM EST Temperature 36.1 C (97 F) 04/27/2025 9:09 AM EST Respiratory Rate 16 04/27/2025 10:17 AM EST Oxygen Saturation 99% 04/27/2025 10:17 AM EST Inhaled Oxygen Concentration - - Weight 98.4 kg (217 lb) 04/27/2025 9:09 AM EST Height 177.8 cm (5' 10 ) 04/27/2025 9:09 AM EST Body Mass Index 31.14 04/27/2025 9:09 AM EST Plan of Treatment Health Maintenance Due Date Last Done Comments DTaP,Tdap,and Td Vaccines (1 - Tdap) 10/18/1982 Pneumococcal Vaccine: 50+ Years (1 of 1 - PCV) 10/18/2013 Zoster Vaccines (1 of 2) 10/18/2013 Depression Screening 06/11/2024 Cholesterol Screening (Lipid Panel) 02/04/2025 HIV Screening 02/04/2025 Hepatitis C Screening 02/04/2025 Social Influencers of Health Screening 02/04/2025 Colorectal Cancer Screening: Colonoscopy 04/27/2035 04/27/2025 RSV Immunization Adult Patients (1 - 1-dose 75+ series) 10/18/2038 COVID-19 Vaccine Completed 02/28/2025, , 05/02/2023, Additional history exists Influenza Vaccine Completed 02/28/2025, , 03/03/2023, Additional history exists HIB Vaccines Aged Out No longer eligi [...] to complete this topic RSV Immunization Patients Under 20 months Aged Out No longer eligible based on patient's age to complete this topic Varicella Vaccines Aged Out No longer eligible based on patient's age to complete this topic Goals Goal Patient Goal Type Associated Problems Recent Progress Patient-Stated? Author Autogenera ariella Goal Care Plan Autogenerated Problem No Sallie Souza Procedures Procedure Name Priority Date/Time Associated Diagnosis Comments COLONOSCOPY Routine 04/27/2025 9:56 AM EST Colon cancer screening from Last 3 Months Results * COLONOSCOPY Anesthesia - MAC; [facility] ENDOSCOPY (04/27/2025 9:56 AM EST) Anatomical Region Laterality Modality Other 04/27/2025 9:39 AM EST Impressions 04/27/2025 9:58 AM EST - Diverticulosis in the sigmoid colon. - Non-bleeding internal hemorrhoids. - The examination was otherwise normal on direct and retroflexion views. - No specimens collected. Recommendation: - Discharge patient to home. - High fiber diet. - Continue present medications. - Repeat colonoscopy in 10 years for surveillance. - Return to GI office PRN. Narrative 04/27/2025 9:[address] [facility] GI Patient Name: Nina Lancaster Procedure Date: 04/27/2025 9:39 AM Date of : 1965 Age: 59 Room: ROOM 14 Gender: Male Note Status: Finalized Attending MD: Schuyler Watts MD, Procedure Date No Time: 04/27/2025 Procedure: Colonoscopy Indications: Screening for colorectal malignant neoplasm Providers: Schuyler Watts MD Referring MD: Schuyler Watts MD Medicines: Monitored Anesthesia Care Complications: No immediate complications. Estimated Blood Loss: Estimated blood loss: none. Procedure: Pre-Anesthesia Assessment: - ASA Grade Assessment: II - A patient with mild systemic disease. - After reviewing the risks and benefits, the patient was deemed in satisfactory condition to undergo the procedure. After I obtained informed consent, the scope was passed under direct vision. Throughout the procedure, the patient's blood pressure, pulse, and oxygen saturations were monitored continuously.The Colonoscope was introduced through the anus and advanced to the cecum, identified by appendiceal orifice and ileocecal valve. The colonoscopy was performed without difficulty. The patient tolerated the procedure well. The quality of the bowel preparation was good. Findings: A few small-mouthed diverticula were found in the sigmoid colon. Non-bleeding internal hemorrhoids were found during retroflexion. The hemorrhoids were small. The exam was otherwise without abnormality on direct and retroflexion views. Procedure Code(s): --- Professional --- 20818, Colonoscopy, flexible; diagnostic, including collection of specimen(s) by brushing or washing, when performed (separate procedure) Diagnosis Code(s): --- Professional --- Z12.11, Encounter for screening for malignant neoplasm of colon CPT copyright 2020 [employer]. All rights reserved. The codes documented in this report are preliminary and upon rice field worker review may be revised to meet current compliance requirements. Schuyler Watts MD 04/27/2025 9:58:03 AM This report has been signed electronically.Schuyler Watts MD Number of Addenda: 0 Note Initiated On: 04/27/2025 9:39 AM Scope In: Scope Out: Endoscopy Department at [facility] - [address] [place] [phone] Procedure Note Schuyler Watts MD - 04/27/2025 [facility] GI Patient Name: Nina Lancaster Procedure Date: 04/27/2025 9:39 AM Date of : 1965 Age: 59 Room: ROOM 14 Gender: Male Note Status: Finalized Attending MD: Schuyler Watts MD, Procedure Date No Time: 04/27/2025 Procedure: Colonoscopy Indications: Screening for colorectal malignant neoplasm Providers: Schuyler Watts MD Referring MD: Schuyler Watts MD Medicines: Monitored Anesthesia Care Complications: No immediate complications. Estimated Blood Loss: Estimated blood loss: none. Procedure: Pre-Anesthesia Assessment: - ASA Grade Assessment: II - A patient with mild systemic disease. - After reviewing the risks and benefits, thepatient was deemed in satisfactory condition to undergo the procedure. After I obtained informed consent, the scope was passed under direct vision. Throughout theprocedure, the patient's blood pressure, pulse, and oxygen saturations were monitored continuously.The Colonoscope was introduced through the anus and advanced to the cecum, identified by appendiceal orifice and ileocecal valve. The colonoscopy was performed without difficulty. The patient tolerated the procedure well. The quality of the bowel preparation was good. Findings: A few small-mouthed diverticula were found in the sigmoid colon. Non-bleeding internal hemorrhoids were found during retroflexion. The hemorrhoids were small. The exam was otherwise without abnormality ondirect and retroflexion views. Procedure Code(s): --- Professional --- 77735, Colonoscopy, flexible; diagnostic, including collection of specimen(s) by brushing or washing,when performed (separate procedure) Diagnosis Code(s): --- Professional --- Z12.11, Encounter for screening for malignantneoplasm of colon CPT copyright 2020 [employer]. All rights reserved. The codes documented in this report are preliminary and upon rice field worker reviewmay be revised to meet current compliance requirements. Schuyler Watts MD 04/27/2025 9:58:03 AM This report has been signed electronically.Schuyler Watts MD Number of Addenda: 0 Note Initiated On: 04/27/2025 9:39 AM Scope In: Scope Out: Endoscopy Department at [address] [phone] IMPRESSION: - Diverticulosis in the sigmoid colon. - Non-bleeding internal hemorrhoids. - The examination was otherwise normal on directand retroflexion views. - No specimens collected. Recommendation: - Discharge patient to home. - High fiber diet. - Continue present medications. - Repeat colonoscopy in 10 years forsurveillance. - Return to GI office PRN. us Schuyler Watts MD GI~PROCEDURE ORDERABLES Final Result from Last 3 Months Additional Health Concerns Active Problems Noted Date Diagnosed Date Autogenerated Problem 03/29/2025 Insurance [employer] Care Teams Cooker Cleaner Relationship Specialty Start Date End Date Tod Monte MD [address] [place] [address] Dr Moses [place] PCP - General Family Medicine 02/04/25
== END 2025-05-11 10:26 | disposition home or self-care (01) ==
LOC: HO.HMCFM 09:18
PROVIDERS: PCP Family Medicine; Visit Provider Family Medicine
DX: I10 Essential (primary) hypertension (principal); E26.9 Hyperaldosteronism, unspecified; R73.03 Prediabetes; R74.01 Elevation of levels of liver transaminase levels; Z12.11 Encounter for screening for malignant neoplasm of colon; N64.4 Mastodynia; Z13.9 Encounter for screening, unspecified

== ENCOUNTER → 2025-05-11 09:17 | Outpatient (BNVA) | payer OTHER, SELFPAY | PROVIDERS: PCP Family Medicine; Visit Provider Family Medicine | DX: I10 Essential (primary) hypertension (principal); E26.9 Hyperaldosteronism, unspecified; N64.4 Mastodynia; R73.03 Prediabetes; R74.01 Elevation of levels of liver transaminase levels | CPT/HCPCS: 83036; 96127 ==

== ENCOUNTER 2025-06-02 13:12 | Outpatient (REF) | payer OTHER, SELFPAY ==
--- NOTE | ~2025-06-02 | MM_ITS ---
EXAMINATION(S): 1. MM DIAGNOSTIC DIGITAL BREAST TOMOSYNTHESIS, BILATERAL 2. TARGETED ULTRASOUND OF THE BILATERAL BREASTS CLINICAL INFORMATION: Tenderness under R nipple-Areola complex COMPARISON: None. This is a baseline study. TECHNIQUE: Digital breast tomosynthesis is performed in both the mediolateral oblique and craniocaudal views along with computer-aided detection (CAD). Synthesized 2D images are generated from the tomosynthesis. Spot compression tomosynthesis was obtained for the right breast. Triangular skin markers were placed at the location of the pain in the right breast. FINDINGS: BREAST COMPOSITION: There are scattered areas of fibroglandular density. RIGHT BREAST: Subareolar density is typical of gynecomastia. No significant masses, suspicious calcifications or other abnormalities are seen. No suspicious mammographic findings in the immediate vicinity of the two triangular skin markers. Targeted ultrasound of the right breast was performed at the location of the pain as indicated by the patient. The survey shows sonographic findings typical of gynecomastia. Mildly ectatic ducts also seen during the survey. An approximately 0.9 x 0.4 cm oval cystic structure identified which appears continuous with one of the mildly dilated ducts at approximately 3 o'clock position retroareolar. LEFT BREAST: No significant masses, suspicious calcifications or other abnormalities are seen. MM/MM tomosynthesis diagnostic BI IMPRESSION: RIGHT BREAST: Gynecomastia. Mildly ectatic ducts. Cystic changes or focally dilated duct measuring 0.9 x 0.4 cm at 3 o'clock position retroareolar. A 6-month follow-up mammogram and ultrasound is recommended for reevaluation. Also consider surgical consultation. LEFT BREAST: Negative, no mammographic evidence of malignancy. ASSESSMENT: BI-RADS: Category 3: Probably benign RECOMMENDATION: 6 Month F/U Results were provided to the patient at time of visit by the technologist. Electronically signed by: Leigh Handy MD 06/02/2025 04:34 PM [facility]
--- OUTSIDE RECORDS SUMMARY | 2025-06-02 14:21 | XMS_ITS | Patient Health Record ---
Author Organization [facility] Address [address] [place] [phone] Care Team Providers Care Master At Arms Name Role Phone Beryl(inactive) Hernandez MOORE Primary Care Provider U Jewel Figueredo [phone] Reason For Referral No Information Medications Medication SIG (Take, Route, Frequency, Duration) Notes Start Date End Date Status hydroCHLOROthiazide 25 MG Tablet 1 tablet Orally Once a day Active Suprep Bowel Prep 1 kit Solution as directed Orally as directed; Duration: 1 dose 04/13/2015 Active Cartia XT 300 MG Capsule Extended Release 24 Hour 1 capsule Orally Once a day Active Social History Social History Additional Details Category Social Info Options Details Miscellaneous: Marital status: 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 [employer] Notes: Nonsmoker; no sig alcohol From [facility] in 1986 Problems Problem Type SNOMED Code ICD Code Onset Dates Problem Status W/U Status Risk Notes Problem Screening for malignant neoplasm of colon (636954340) Encounter for screening for malignant neoplasm of colon (Z12.11) Active confirmed Problem Preprocedural examination (250502980756152) Preprocedural examination (Z01.818) Active confirmed Problem History of drug therapy (442456309) History of long-term use of multiple prescription drugs (Z92.29) Active confirmed Plan Of Treatment Future Test Test Name Order Date COLONOSCOPY 04/09/2015 Insurance Providers Payer Name Payer Address Payer Phone Subscriber Number Group Number Insured Name Patient Relationship to Insured Coverage Start Date Coverage End Date [employer] ([employer] L) [address] [place] [address] [id number] NINA LANCASTER Self - patient is the insured Medical (General) History Medical History History ICD Code HTN Denies [place],DM,CVA,Lung disease,renal dise ase
--- OUTSIDE RECORDS SUMMARY | 2025-06-02 14:21 | XMS_ITS | Clinical Summary ---
Author Organization [facility] Address [address] [place] [address] Phone Care Team Providers Care Patient Day Coordinator Name Role Phone Tod Monte MD Primary [...] Description 04/27/2025 9:44 AM EST Anesthesia Event [facility] Endoscopy [address] [place] [address] Meka Marinelli MD 04/27/2025 8:56 AM EST - 04/27/2025 11:59 PM EST Hospital Encounter [facility] Endoscopy [address] [place] [address] Schuyler Watts MD Dickman, Christy [...] on file Sexual Orientation Not on file Last Filed Vital Signs Vital Sign Reading [...] Months Results * COLONOSCOPY Anesthesia - MAC; [facility] ENDOSCOPY (04/27/2025 9:56 AM EST) Anatomical Region [...] office PRN. Narrative 04/27/2025 9:58 AM EST [facility] GI Patient Name: Nina Lancaster Procedure Date: [...] retroflexion views. Procedure Code(s): --- Professional --- 13942, Colonoscopy, flexible; diagnostic, including collection of specimen(s) by brushing or washing, when performed (separate procedure) Diagnosis Code(s): --- Professional --- Z12.11, Encounter for screening for malignant neoplasm of colon CPT copyright 2020 [employer]. All rights reserved. The codes documented in this report are preliminary and upon outdoor education teacher review may be revised to meet current compliance requirements. Schuyler Watts MD 04/27/2025 9:58:03 AM This report has been signed electronically.Schuyler Watts MD Number of Addenda: 0 Note Initiated On: 04/27/2025 9:39 AM Scope In: Scope Out: Endoscopy Department at [facility] - [address] [place] [phone] Procedure Note Schuyler Watts MD - 04/27/2025 [facility] GI Patient Name: Nina Lancaster Procedure Date: [...] retroflexion views. Procedure Code(s): --- Professional --- 44311, Colonoscopy, flexible; diagnostic, including collection of specimen(s) by brushing or washing,when performed (separate procedure) Diagnosis Code(s): --- Professional --- Z12.11, Encounter for screening for malignantneoplasm of colon CPT copyright 2020 [employer]. All rights reserved. The codes documented in this report are preliminary and upon outdoor education teacher reviewmay be revised to meet current compliance requirements. Schuyler Watts MD 04/27/2025 9:58:03 AM This report has been signed electronically.Schuyler Watts MD Number of Addenda: 0 Note Initiated On: 04/27/2025 9:39 AM Scope In: Scope Out: Endoscopy Department at [facility] - [address] [place] [id number] IMPRESSION: - Diverticulosis in the sigmoid colon. - Non-bleeding internal hemorrhoids. - The examination was otherwise normal on directand retroflexion views. - No specimens collected. Recommendation: - Discharge patient to home. - High fiber diet. - Continue present medications. - [facility] - Return to GI office PRN. us Schuyler Watts MD GI~PROCEDURE ORDERABLES Final Result from Last 3 Months Additional Health Concerns Active Problems Noted Date Diagnosed Date Autogenerated Problem 03/29/2025 Insurance [employer] Care Teams Patient Day Coordinator Relationship Specialty Start Date End Date Tod Monte MD [address] [place] [address] Dr Garcia [place] PCP - General Family Medicine 02/04/25
== END 2025-06-02 13:13 ==
LOC: HO.MAMMO 13:12
PROVIDERS: PCP Family Medicine; Visit Provider Family Medicine
DX: N64.4 Mastodynia (principal)
CPT/HCPCS: 76642; 77062; 77066

== ENCOUNTER → 2025-06-02 13:30 | Outpatient (BNV) | payer OTHER, SELFPAY | PROVIDERS: PCP Family Medicine; Visit Provider Radiology Body Imaging | DX: N64.4 Mastodynia (principal); N60.41 Mammary duct ectasia of right breast; N62 Hypertrophy of breast | CPT/HCPCS: 76642; 77062; 77066 ==